=== PATIENT | female | born 1955 | race Caucasian/White ===

== ENCOUNTER 2018-10-03 06:45 | Day surgery (SDC) | payer OTHER, SELFPAY ==
[2018-09-30 10:18] VITALS: BMI 33.3
[2018-10-03] VITALS (16 sets, daily range): BP systolic 111–140; BP diastolic 42–84; PULSE 59–75; RESP 10–18; TEMP 36.2–37.1; O2SAT 93–100; BMI 33.3
--- NOTE | 2018-10-03 | PATH_ITS ---
[facility] Accession Number: [id number] . 01 Material submitted: . UTERUS, CERVIX, BILATERAL FALLOPIAN TUBES AND OVARIES . 02 Diagnosis: Uterus, Cervix, Bilateral Fallopian Tubes and Ovaries, Hysterectomy, Bilateral Salpingo-oophorectomy: 1. Bilateral benign Arleen tumors. 2. 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 3. Benign leiomyomas. 4. Disordered proliferative endometrium. 5. No evidence of atypia or malignancy. [facility]/10/07/2018 . 02 Comment: Arleen tumors are benign and with rare exceptions not associated with recurrent or progressive disease. Excision is adequate treatment. . 02 Electronically signed: . Brandi Calvin MD, Pathologist NPI- [id number] . 01 Gross description: . Received in formalin, labeled uterus, cervix, bilateral tubes + ovaries, is a uterus (38 grams, 2.6 cm AP, 6.7 cm SI, 3.2 cm ML) with attached ovaries (right-3.5 x 0.6 x 0.5 cm; left-2.2 x 1.5 x 0.8 cm) and fimbriated fallopian tubes (right: length-4.5 cm, diameter-0.5 cm; left: length-3.3 cm, diameter-0.5 cm). The cervix (2.0 cm AP, 2.8 cm ML) has a vaginal cuff (up to 1.4 cm in depth), transverse os and patent endocervical canal. The endometrium (average thickness-0.1 cm) is everett-pink smooth and flat. The myometrium (thickness-1.2 cm) is everett and unremarkable. The serosa is dark brown smooth and shiny. The ovaries have everett-yellow dull flat serosa and everett-white solid parenchyma with corpus albicans and multiple solid firm white whorled homogenous nodules (0.5 cm-0.7 cm) identified. The left ovary contains multiple cystic cavities (0.1 cm-0.6 cm) containing turbid gelatinous material. The fallopian tubes have everett-bentley dull serosa with multiple paratubal cysts (0.1 cm-1.5 cm) containing clear colorless fluid and turbid gelatinous material. The lumens are everett and unremarkable. Section code: (A1) anterior cervix; (A2) posterior cervix; (A3, A4) anterior endomyometrium; (A5, A6) posterior endomyometrium; (A7) right ovary, medical collections representative serial sections; (A8) left ovary, medical collections representative serial sections; (A9) right fallopian tube, medical collections representative serial sections; (A10) right fimbria, bivalved, entirely submitted; (A11) left fallopian tube, medical collections representative serial sections; (A12) left fimbria, bivalved, entirely submitted. Additional sections: (A13-A16) remaining anterior cervix; (A17, A18) additional endomyometrium. (:cmc80 [id number]) (:cmc10 [id number]) /[facility] . 02 Microscopic: . Immunohistochemical stains for p16 were performed on blocks A1, A15 and A16 in order to evaluate epithelial areas of interest and are negative for block reactivity. The control stain showed appropriate reactivity. . * This test was developed and its performance characteristics determined by [facility]. It has not been cleared or approved by the U.S. Food and Drug Administration. The FDA has determined that such clearance or approval is not necessary. This test is used for clinical purposes. It should not be regarded as investigational or for research. . 02 Pathologist provided ICD-10: D27.9, N83.9, D25.9 . 02 CPT . 778810, Q86692 Performed at: 01 [facility] [address], [place], [place] [id number] MD Rajesh Lewis MD Phone: [phone] Performed at: 02 [facility] [id number] [place], [place] [id number] MD Brandi Calvin MD Phone: [phone]
[2018-10-03] MEDS: LACTATED RINGERS 1,000 ML 100 ML IV ×4 (07:32→21:15)
--- NOTE | 2018-10-03 07:45 | PM.PREOP ---
Pre-operative Note Interval Note Pre-op Check: Yes History & Physical Reviewed by Physician Changes: No
[2018-10-03] MEDS: CEFAZOLIN 2 GM/100 ML FROZ.PIGGY IV (08:10)
--- NOTE | 2018-10-03 08:53 | SUR.OPER ---
Lithotomy on padded OR bed. Silo Pad Positioner under torso. Head on pillow, arms padded and tucked at sides. Legs secured in padded yellow fins stirrups.
[2018-10-03] MEDS: BUPIVACAINE 0.5% W/ EPI (PF) VIAL 60 ML INJ (09:23)
[2018-10-03] MEDS: ACETAMINOPHEN IV 1,000 MG/100 ML VIAL 400 MG IV (09:40)
[2018-10-03] MEDS: KETOROLAC 30 MG/ML VIAL IV ×2 (10:15→16:53)
[2018-10-03] MEDS: ONDANSETRON 4 MG/2 ML INJ IV (11:40)
--- NOTE | 2018-10-03 11:41 | SUR.PHASEI ---
c/o mild nausea, medicated per orders.
[2018-10-03] MEDS: DOCUSATE 250 MG CAPSULE PO (21:12)
[2018-10-03] MEDS: METOPROLOL IR 25 MG TABLET 75 MG PO (21:12)
[2018-10-03] MEDS: ATORVASTATIN 20 MG TABLET 40 MG PO (21:12)
[2018-10-04 00:52] VITALS: BP 110/57; PULSE 69; RESP 18; TEMP 37; O2SAT 95
[2018-10-04] MEDS: KETOROLAC 30 MG/ML VIAL IV ×2 (01:00→07:21)
[2018-10-04 03:17] VITALS: BP 125/54; PULSE 65; RESP 17; TEMP 36.6; O2SAT 97
[2018-10-04 05:38] LABS: Add Manual Diff / Slide Review NO; Basophils Percent Auto 0.2 % (0-2); Hematocrit 33.8 % (36-46); Hemoglobin 11.1 g/dL (12.0-16.0); Lymphocytes Percent Auto 6.2 % (25-40); Mean Corpuscular HGB Conc 32.8 % (30-36); Mean Corpuscular Hemoglobin 31.3 PG (26-34); Mean Corpuscular Volume 95.4 fL (80-100); Neutrophils Absolute Auto 13300 /uL (3000-5900); Neutrophils Percent Auto 89.6 % (50-75); Platelet Count 262 X10^3/uL (150-400); Red Blood Cell Count 3.55 X10^6/uL (4.0-5.2); Red Cell Distribution Width 12.9 % (11.6-14.8); White Blood Cell Count 14.8 X10^3/uL (4.5-11.0)
[2018-10-04] MEDS: LEVOTHYROXINE 75 MCG TABLET PO (06:19)
[2018-10-04 07:40] VITALS: BP 138/72; PULSE 57; RESP 18; TEMP 36.6; O2SAT 97
--- NOTE | 2018-10-04 08:07 | PM.GYNOP.1 ---
Operative Date/Time/Diagnoses Date of procedure: 10/03/18 Time of procedure: 10:30 Pre-op diagnosis: Uterine prolapse Cystocele Rectus Post-op diagnosis: same Procedure: Procedures Operation Date: 10/03/18 07:45 Actual Procedures Side Surgeon p Laparoscopic Assisted Vag Hysterectomy w/Bilat S&O Not Applicable Macy Macias MD Indications: Symptomatic uterine prolapse, cystocele, and rectocele Surgeon: Macy Macias Stitching Machine Operator: Eduard Huang Anesthesia Type: General Operative Notes Findings: 5 week size prolapsed uterus Third-degree cystocele Third-degree rectocele Normal tubes and ovaries Normal appendix Normal gallbladder and liver Closure Type: primary Specimen(s): left tube & ovary, right tube & ovary and uterus Applied: catheter Estimated blood loss (mL): 200 Blood products transfused: none Procedure in detail: The patient was taken to the operating room where she was placed in the dorsal supine position. After adequate general endotracheal anesthesia was achieved, she was placed in the dorsal lithotomy position, and prepped and draped in the usual sterile fashion. A time-out was performed. A bivalve speculum was placed into the vagina, and a single-tooth tenaculum was placed on the anterior lip of the cervix. The cervical os was sequentially dilated until the ZUMI uterine manipulator could pass easily into the endometrial cavity. The single-tooth tenaculum was removed from the anterior lip of the cervix, and the bivalve speculum was removed from the vagina. Attention was then turned to the abdomen where 6 mL of half percent Marcaine with epinephrine were injected in the umbilical fold. A 5 mm incision was made. The Verhees needle was placed into the peritoneal cavity, and its placement confirmed by aspiration and drop test. The abdominal cavity was insufflated with 4 L of CO2. The Verhees needle was removed, and a 5 mm trocar was placed without difficulty. Initial inspection of the pelvis revealed the findings noted above. 2 other incisions were made midway between the pubic symphysis and umbilicus 4 cm lateral to the midline. These were 5 mm incisions. Two 5 mm trochars were placed under direct visualization. The right tube and ovary were grasped with an atraumatic grasper. The infundibulopelvic ligament on the right side was cauterized and cut with plasma kinetic. The round ligament and broad ligament were cauterized and cut. This was continued to the level of the uterine arteries. This was repeated on the patient's left side. The instuments were removed from the abdomen. Attention was then turned to the vagina where the ZUMI uterine manipulator was removed from the uterus. The cervix was grasped with a 4 tooth tenaculum. 10 mL of quarter percent Marcaine with epinephrine were injected circumferentially around the cervix. The cervix was circumscribed. The bladder and rectum were dissected off the lower uterine segment and cervix with an open moistened Ray-Lorenzo. The peritoneum was entered sharply with the Metzenbaum scissors anteriorly and a Lashell placed. The peritoneum was entered posteriorly with the Metzenbaum scissors and the long weighted speculum was placed into the posterior cul-de-sac. The uterosacral cardinal ligament complexes were clamped, transected, and suture ligated with 0 Vicryl. These were attached to hemostat. The uterine arteries were clamped, transected, and suture ligated with 0 Vicryl. The uterus was handed off for specimen with the tubes and ovaries. The peritoneum was closed with a pursestring suture with 2-0 Vicryl. The vaginal cuff was closed with 0 Vicryl with a series of simple interrupted sutures. The tagged sutures were cut. 2 Allis clamps were placed at the apex of the cystocele. 6 mL of half percent Marcaine with epinephrine were injected and an incision was made with a #10 blade between the 2 Allis clamps. Wide Allis clamps were placed on the midline of the cystocele approximately 5. The mucosa was undermined using the Metzenbaum scissors and the mucosa incised in the midline moving the wide Allis clamps to the edges of the mucosa. The mucosa was dissected off the underlying fascia using an open moistened Ray-Lorenzo and a #10 blade. The fascia was reapproximated with 0 Vicryl with a series of horizontal mattress sutures. The excess vaginal mucosa was excised. The mucosa was closed using simple interrupted sutures with 2-0 Vicryl including the underlying fascia to close the space. The weighted speculum was removed from the vagina. Allis clamps were placed at the mucocutaneous junction at the introitus. 6 mL of half percent Marcaine with epinephrine were injected. An incision was made with a #10 blade between the 2 Allis clamps, and a triangular piece of skin and underlying subcutaneous tissue was removed. Allis clamps were placed in the midline of the rectocele. 10 mL of half percent Marcaine with epinephrine were injected submucosally. The mucosa was undermined using the Metzenbaum scissors and the mucosa incised in the midline, moving the wide Allis clamps to the mucosal edges. The underlying fascia was dissected off of th mucosa using an open moistened Ray-Lorenzo and a #10 blade. The fascia was reapproximated using 0 Vicryl with a series of horizontal mattress sutures. The excess vaginal mucosa was excised. The mucosa was closed using a series of simple interrupted sutures with 2-0 Vicryl including the underlying fascia to close the space. On the perineum 0 Vicryl was used to reapproximate the levator muscle. The subcutaneous layer was closed with 2-0 Vicryl. The skin was closed with 3-0 chromic in a subcuticular fashion. Hemostasis was achieved. A Betadine moistened vaginal pack was placed into the vagina. A rectal exam was done and there were no sutures palpable in the rectum. The urine was clear. Attention was turned back to the abdomen and the abdomen was insufflated with 3 L of CO2. The vaginal cuff was inspected and there was a small amount of bleeding from the right side including the peritoneum. This was cauterized with the PlasmaKinetic for hemostasis. The pelvis was copiously irrigated and there was no bleeding noted. Sponge, lap, and instrument counts were correct x-2. The patient tolerated the procedure well, was taken to PACU in stable condition. Post-operative Condition: stable Disposition: PACU Plan for aftercare: To acute care after recovery
--- NOTE | 2018-10-04 09:20 | PC.NURSE ---
Addendum entered by Anila Renteria R.N. 10/04/18 13:24: Patient voided 150cc, PVR 57cc, call placed to Dr Macias, waiting for return call. Original Note: Addendum entered by Anila Renteria R.N. 10/04/18 12:30: In and out cath for 200cc clear yellow urine as per Dr Kendall Shepard nurse. Original Note: Addendum entered by Anila Renteria R.N. 10/04/18 11:16: 1045 Patient voided 100cc, PVR 150cc, Call to Drea Argueta nurse at 1115 and given these urine amounts and PVR. Original Note: Addendum entered by Anila Renteria R.N. 10/04/18 10:06: Pt voided 150cc pink tinged urine, bladder scanned PVR 200cc, Dr Macisa notified. Ordered to have patient attempt to void again in 30min and check PVR. Original Note: Pt up ambulating in room, gait steady, rates abdominal pain 2/10, described as cramping.Denies need for pain meds. Serna out at 0610, no void yet. Pt had approx 75cc bloody drainage when attempting to void.
[2018-10-04] MEDS: ISOSORBIDE MONONITRATE ER 30 MG TABLET PO (09:28)
[2018-10-04] MEDS: DOCUSATE 250 MG CAPSULE PO (09:28)
[2018-10-04] MEDS: LISINOPRIL 10 MG TABLET PO (09:28)
== END 2018-10-04 14:57 | disposition home or self-care (01) ==
LOC: OR 06:49 → AC 12:04
PROVIDERS: PCP Family Medicine; Visit Provider Obstetrics & Gynecology
PROC: 0UT9FZZ Resection of Uterus, Via Natural or Artificial Opening With Percutaneous Endoscopic Assistance (ICD-10-PCS; CPT 58552; principal; 2018-10-03 07:45)
DX: N81.4 Uterovaginal prolapse, unspecified (principal); N81.6 Rectocele; N83.9 Noninflammatory disorder of ovary, fallopian tube and broad ligament, unspecified; D25.9 Leiomyoma of uterus, unspecified; D27.0 Benign neoplasm of right ovary; D27.1 Benign neoplasm of left ovary
CPT/HCPCS: 58552; 57260; 36415; 85025; J0131; J0330; J0690; J1100; J1885; J2250; J2405; J2704; J3010

== ENCOUNTER → 2018-10-20 11:52 | Outpatient (CLI) | payer OTHER, SELFPAY ==
[2018-10-03 13:06] VITALS: BMI 33.3
== END ==
PROVIDERS: PCP Family Medicine; Visit Provider Family Medicine
DX: R20.0 Anesthesia of skin (principal); R29.898 Other symptoms and signs involving the musculoskeletal system
CPT/HCPCS: 95885; 95886; 95909

== ENCOUNTER → 2018-10-24 15:26 | Outpatient (CLI) | payer OTHER, SELFPAY ==
[2018-10-03 13:06] VITALS: BMI 33.3
--- NOTE | 2018-10-24 15:27 | DI.US.S_ITS ---
PROCEDURE: US KATE LIMITED SINGLE LEVEL INDICATIONS: NUMBNESS IN FEET / LOWER EXTREMITIES TECHNIQUE: Ankle-brachial indices were obtained bilaterally and recorded. 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 Dictated by: Hair Bray M.D. on 10/24/2018 at 16:19 Approved by: Hair Bray M.D. on 10/24/2018 at 16:21
== END ==
PROVIDERS: PCP Family Medicine; Visit Provider Family Medicine
DX: R20.0 Anesthesia of skin (principal)
CPT/HCPCS: 93922

== ENCOUNTER → 2018-11-07 09:17 | Outpatient (CLI) | payer OTHER, SELFPAY ==
[2018-10-03 13:06] VITALS: BMI 33.3
[2018-11-07 10:15] LABS: Alanine Aminotransferase 26 IU/L (9-52); Albumin 4.5 g/dL (3.5-5.0); Albumin Globulin Ratio 1.2 (1.0-2.8); Alkaline Phosphatase 103 U/L (38-126); Aspartate Aminotransferase 25 IU/L (14-36); BUN Creatinine Ratio 25.6 (6-22); Bilirubin Total 0.6 mg/dL (0.2-1.3); Blood Urea Nitrogen 23 mg/dL (7-17); Calcium 9.5 mg/dL (8.4-10.2); Carbon Dioxide 25 mmol/L (22-32); Chloride 108 mmol/L (98-107); Estimated Glomerular Filt Rate > 60.0 mL/min (>60); Globulin 3.8 g/dL (1.7-4.1); Glucose 110 mg/dL (80-110); HEMOLYSIS 28 (0-50); Potassium 4.8 mmol/L (3.4-5.1); Sodium 142 mmol/L (137-145); Total Protein 8.3 g/dL (6.3-8.2)
[2018-11-07 10:42] LABS: Hemoglobin A1C% w Est Avg Glu 5.7 % (4.0-6.0)
[2018-11-07 11:14] LABS: Folate 17.5 ng/mL (2.76-20.0); Vitamin B12 386 pg/mL (239-931)
== END ==
PROVIDERS: PCP Family Medicine; Visit Provider Family Medicine
DX: G62.9 Polyneuropathy, unspecified (principal)
CPT/HCPCS: 36415; 80053; 82607; 82746; 83036

== ENCOUNTER → 2019-02-13 09:44 | Outpatient (CLI) | payer OTHER, SELFPAY ==
[2018-10-03 13:06] VITALS: BMI 33.3
--- NOTE | 2019-02-13 10:42 | DI.RAD.S_ITS ---
PROCEDURE: XR CHEST 2V INDICATIONS: short of breath TECHNIQUE: 2 views of the chest were acquired. COMPARISON: None. FINDINGS: Surgical changes and devices: None. Lungs and pleura: Ill-defined opacity in right infrahilar region is seen, suggestive of right normal small infiltrate/atelectasis. No pleural effusions or pneumothorax. Mediastinum: Mediastinal contours are normal. Heart size is normal. Bones and chest wall: No suspicious bony abnormalities. Soft tissues appear unremarkable. IMPRESSION: Finding is suspicious for a small right lower lobe infiltrate. Dictated by: Hair Bray M.D. on 02/13/2019 at 11:34 Approved by: Hair Bray M.D. on 02/13/2019 at 11:44
[2019-02-13 11:04] LABS: Cholesterol 140 mg/dL (140-199); HDL Cholesterol 59 mg/dL (40-60); LDL Cholesterol Calculated 66 mg/dL (<100); Triglycerides 73 mg/dL (35-150)
[2019-02-13 11:38] LABS: TSH w/ Reflex to FT4 0.18 uIU/mL (0.47-4.68)
[2019-02-13 12:07] LABS: Free T4, Direct Thyroxine 2.04 ng/dL (0.78-2.19)
== END ==
PROVIDERS: PCP Family Medicine; Visit Provider Family Medicine
DX: R53.82 Chronic fatigue, unspecified (principal); E78.5 Hyperlipidemia, unspecified
CPT/HCPCS: 36415; 71046; 80061; 84439; 84443

== ENCOUNTER → 2019-05-15 08:43 | Outpatient (CLI) | payer MEDICARE, OTHER, SELFPAY ==
[2018-10-03 13:06] VITALS: BMI 33.3
--- NOTE | 2019-05-15 08:52 | DI.RAD.S_ITS ---
PROCEDURE: XR CHEST 2V INDICATIONS: fu cough/pneumonia TECHNIQUE: 2 views of the chest were acquired. COMPARISON: [facility], CR, XR CHEST 2V, 02/13/2019, 10:45. FINDINGS: Surgical changes and devices: None. Lungs and pleura: Lungs are clear. No pleural effusions or pneumothorax. Mediastinum: Mediastinal contours are normal. Heart size is minimally prominent. Bones and chest wall: No suspicious bony abnormalities. Soft tissues appear unremarkable. IMPRESSION: No acute pulmonary process. Dictated by: Sandy Carmona M.D. on 05/15/2019 at 10:02 Approved by: Sandy Carmona M.D. on 05/15/2019 at 10:03
[2019-05-15 10:31] LABS: Thyroid Stimulating Hormone 2.23 uIU/mL (0.47-4.68)
== END ==
PROVIDERS: PCP Family Medicine; Visit Provider Family Medicine
DX: R05 Cough (principal); E03.9 Hypothyroidism, unspecified
CPT/HCPCS: 36415; 71046; 84443

== ENCOUNTER → 2019-06-28 16:26 | Outpatient (CLI) | payer MEDICARE, OTHER, SELFPAY ==
[2019-06-27 13:34] VITALS: BMI 33.3
--- NOTE | 2019-06-28 16:28 | DI.RAD.S_ITS ---
PROCEDURE: XR CHEST 2V INDICATIONS: Shortness of breath, Cough TECHNIQUE: 2 views of the chest were acquired. COMPARISON: [facility], CR, XR CHEST 2V, 05/15/2019, 9:04. FINDINGS: Surgical changes and devices: None. Lungs and pleura: Lungs are clear. No pleural effusions or pneumothorax. Mediastinum: Mediastinal contours are normal. Heart size is normal. Bones and chest wall: No suspicious bony abnormalities. Soft tissues appear unremarkable. IMPRESSION: No evidence acute pulmonary process. Dictated by: Wes Arellano M.D. on 06/28/2019 at 16:50 Approved by: Wes Arellano M.D. on 06/28/2019 at 16:50
== END ==
PROVIDERS: PCP Family Medicine; Visit Provider Nurse Practitioner
DX: R06.03 Acute respiratory distress (principal); R05 Cough
CPT/HCPCS: 71046

== ENCOUNTER → 2019-07-24 07:49 | Outpatient (CLI) | payer MEDICARE, OTHER, SELFPAY ==
[2018-10-03 13:06] VITALS: BMI 33.3
[2019-06-27 13:34] VITALS: BMI 33.3
--- NOTE | 2019-07-24 | DI.MG.S_ITS ---
BILATERAL DIGITAL SCREENING MAMMOGRAM 3D/2D WITH CAD: 07/24/2019 CLINICAL: Routine screening. Family history of breast cancer. Comparison is made to exams dated: 07/18/2018 mammogram and 05/19/2017 mammogram - [facility]. There are scattered fibroglandular elements in both breasts. Current study was also evaluated with a Computer Aided Detection (CAD) system. No significant masses, calcifications, or other findings are seen in either breast. There has been no significant interval change. IMPRESSION: NEGATIVE There is no mammographic evidence of malignancy. A 1 year screening mammogram is recommended. This exam was interpreted at Station ID: [id number]. NOTE: For mammograms, a report in lay terms will be sent to the patient. Approximately 15% of breast malignancies will not be visualized mammographically. In the management of a palpable breast mass, a negative mammogram must not discourage biopsy of a clinically suspicious lesion. Electronically Signed By: Casi lucio/keven:07/26/2019 22:33:02 letter sent: Normal Exam ACR BI-RADS Category 1: Negative [id number]
== END ==
PROVIDERS: PCP Family Medicine; Visit Provider Family Medicine
DX: Z12.31 Encounter for screening mammogram for malignant neoplasm of breast (principal); Z80.3 Family history of malignant neoplasm of breast
CPT/HCPCS: 77063; 77067

== ENCOUNTER → 2019-12-08 08:52 | Outpatient (CLI) | payer MEDICARE, OTHER, SELFPAY ==
[2019-06-27 13:34] VITALS: BMI 33.3
--- NOTE | 2019-12-15 16:27 | PM.PFT.1 ---
Pulmonary Function Test Referral & Results Date Patient Seen: 12/08/19 Requesting provider: Robert Felipe Results: The spirometry demonstrates an FVC of 2.25 L which is 71% of predicted. The FEV1 was measured at 1.52 L which is 63% of predicted. The FEV1/FVC ratio was 68 which is 87% of predicted. Following the administration of bronchodilator there was no significant change. Lung volumes show an SVC of 1.88 L which is 63% of predicted. The diffusing capacity was measured at 16.06 which is 66% of predicted. No hemoglobin value was provided, so no correction for potential anemia could be made, if appropriate. The maximum voluntary ventilation was reduced Interpretation: This study demonstrates moderate obstructive lung disease based on reduction FEV1 without evidence of significant benefit following bronchodilator There is also moderate restrictive lung disease based on reduction SVC There is also significant disease of the capillary alveolar level based on reduction in diffusing capacity
== END ==
PROVIDERS: PCP Family Medicine; Referring Provider Family Medicine; Visit Provider Family Medicine
DX: R06.02 Shortness of breath (principal); J98.8 Other specified respiratory disorders; Z87.891 Personal history of nicotine dependence
CPT/HCPCS: 94060; 94726; 94729

== ENCOUNTER 2020-06-02 18:12 | Emergency (ER) | payer MEDICARE, OTHER, SELFPAY ==
[2019-06-27 13:34] VITALS: BMI 33.3
[2020-06-02] VITALS (22 sets, daily range): BP systolic 127–193; BP diastolic 58–85; PULSE 52–61; RESP 13–27; TEMP 36.5; O2SAT 96–99; BMI 36.1
--- NOTE | 2020-06-02 18:21 | DI.RAD.S_ITS ---
PROCEDURE: XR CHEST 1V INDICATIONS: chest pain TECHNIQUE: One view of the chest was acquired. COMPARISON: [facility], CR, XR CHEST 2V, 06/28/2019, 16:30. [facility], CR, XR CHEST 2V, 05/15/2019, 9:04. FINDINGS: Surgical changes and devices: None. Lungs and pleura: Lungs are mildly abnormal, with a mild interstitial prominence in the setting of reduced inspiratory volume in this is best seen at the right lower lobe, chronically present. No pleural effusions or pneumothorax. Mediastinum: Mediastinal contours appear normal. Heart size is normal. Bones and chest wall: No suspicious bony lesions. Overlying soft tissues appear unremarkable. IMPRESSION: A definite source of chest pain is not seen. Mild interstitial prominence, best seen at the medial right lung base but this has been previously present over multiple prior studies. No acute disease. Dictated by: Be Mcbride M.D. on 06/02/2020 at 19:27 Approved by: Be Mcbride M.D. on 06/02/2020 at 19:28
--- NOTE | 2020-06-02 18:26 | ED_ITS ---
HPI - Chest Pain General Chief Complaint: Chest Pain Stated Complaint: Chest pain Time Seen by Provider: 06/02/20 18:15 Source: patient and family Mode of arrival: Ambulatory Limitations: no limitations History of Present Illness HPI narrative: 65-year-old female former smoker with known coronary artery disease and 2 prior MIs presents with a chief complaint of chest pressure increasing over the course of the day. She states she was initially a woken from sleep last night sometime and then upon waking seemed to feel okay but as the day wore on she developed increasing and more intense episodes of pressure. She states that at most it was about a 4/10 and on arrival was a 3/10. She denies associated symptoms such as dizziness, weakness or lightheadedness. She states she historically works out multiple times per week and has noted over the past week or so that she has had increased fatigue and dyspnea with exertion and maybe even a few slight lips of chest pressure. She denies nausea, vomiting or unexplained diaphoresis. She denies any recent injuries or travel. She denies runny nose, sore throat, cough, fever or exposure to persons known to have Braxton it. She took no PRN medications prior to arrival MD complaint: chest pain Onset (ago): hour(s) Duration: progressively worsening Onset: during rest Pain location: substernal Severity: moderate Severity scale (1-10): 4 Quality: tightness, heaviness and similar to prior SD Pain radiation: none Relieving factors: rest Exacerbating factors: exertion Associated symptoms: dyspnea Treatments prior to arrival chest pain: none Related Data On Oral Contraceptives: No Home Medications Medication Instructions Recorded Confirmed flaxseed oil 1,000 mg capsule 1,000 mg PO BID 04/04/18 12/26/19 isosorbide mononitrate 30 mg 30 mg PO DAILY 05/11/18 12/26/19 tablet,extended release 24 hr Previous Rx's Medication Instructions Recorded aspirin 81 mg PO QDAY #30 tab 09/03/17 metoprolol tartrate 75 mg PO BID #60 tab 10/11/18 atorvastatin [Lipitor] 40 mg PO HS #90 tab 01/09/19 fluticasone propionate 230 2 puff INHALATION DAILY #12 gram 12/26/19 mcg-salmeterol 21 mcg/actuation HFA inhaler nitroglycerin 0.3 mg sublingual 0.3 mg SL Q5-15M PRN #14 tab 12/26/19 tablet losartan 50 mg tablet 50 mg PO DAILY #90 tab 04/08/20 levothyroxine 50 mcg tablet See Rx Instructions .ROUTE 05/06/20 .COMPLEX #90 tablet DISABLED PARKING PERMIT #1 each 05/10/20 Allergies Allergy/AdvReac Type Severity Reaction Status Date / Time meperidine [MEPERIDINE] Allergy Severe ANAPHYLAXIS Verified 02/12/20 13:46 acetaminophen [From Percocet] AdvReac Intermediate Vomiting Verified 02/12/20 13:46 codeine [CODEINE] AdvReac Intermediate EMESIS,H.A. Verified 02/12/20 13:46 hydrocodone [HYDROCODONE] AdvReac Intermediate EMESIS,H.A. Verified 02/12/20 13:46 oxycodone [From Percocet] AdvReac Intermediate Vomiting Verified 02/12/20 13:46 diphenhydramine AdvReac Mild INCR HR Verified 02/12/20 13:46 antihistamine Allergy Severe Severe BP Uncoded 02/12/20 13:46 increase, full body hives, trip to ER Review of Systems Constitutional Constitutional: Denies chills, Denies fatigue, Denies fever(s), Denies frequent falls, Denies lethargy and Denies weakness Eyes Eyes: Denies change in vision, Denies eye discharge, Denies irritation and Denies loss of vision ENT Ears, Nose, Mouth, and Throat: Denies change in voice, Denies dizziness, Denies neck pain, Denies sore throat and Denies throat swelling Cardiovascular Cardiovascular: Reports chest pain, Denies irregular heart rhythm, Denies lightheadedness, Denies palpitations, Denies dyspnea, Reports dyspnea on exertion and Denies orthopnea Respiratory Respiratory: Denies cough, Denies dyspnea, Reports dyspnea on exertion and Denies wheezing Gastrointestinal Gastrointestinal: Denies abdominal pain, Denies change in bowel habits, Denies diarrhea, Denies nausea and Denies vomiting Musculoskeletal Musculoskeletal: Denies neck pain and Denies numbness Integumentary/Breasts Skin/Breast: Denies pruritus, Denies erythema, Denies rash and Denies wounds Neurologic Neurologic: Denies behavioral changes, Denies confusion, Denies dizziness, García es frequent falls, Denies loss of vision, Denies numbness and Denies weakness Psychiatric Psychiatric: Denies anxiety, Denies behavioral changes, Denies confusion, Denies depression, Denies homicidal ideation and Denies suicidal ideation Endocrine Endocrine: Denies fatigue, Denies flushing and Denies palpitations Hematologic/Lymphatic Hematologic/Lymphatic: Denies easy bruising Allergic/Immunologic Allergic/Immunologic: Denies urticaria, Denies throat swelling and Denies wheezing Patient History Medical History Acquired hypothyroidism (Chronic 11/19/16) Ankle pain (Chronic) Anxiety and depression (Chronic) Anxiety disorder (Chronic 05/01/15) Coronary artery disease involving [place] coronary artery of [place] heart without angina pectoris (Chronic) Cough (Inactive) Dysthymia (Inactive) Essential hypertension (Chronic) Foot pain (Chronic) Heterozygous factor V Leiden mutation (Chronic 11/03/17) Hyperlipidemia (Chronic) Low grade fever (Inactive) Migraines (Chronic) Myocardial infarction (Acute 08/28/17) Shortness of breath (Inactive) Thrombocytopenia (Acute) Surgical History S/P BSO (bilateral salpingo-oophorectomy) (Resolved 10/03/18) S/P laparoscopic assisted vaginal hysterectomy (LAVH) (Resolved ~10/03/18) Social History marital status: household members: spouse Smoking Status: Former smoker alcohol intake: current substance use type: does not use Smoking Status: Former smoker alcohol intake frequency: holidays/special occasions only Substance Use Type: does not use Exam Narrative Exam Narrative: GENERAL: [65] year old patient appears stated age. Well- nourished, well-developed patient, in mild distress. HEAD: Atraumatic. Normocephalic. EYES: Pupils equal round and reactive. Extraocular motions intact. No scleral icterus. No injection or drainage. ENT: Nose without bleeding, purulent drainage. Throat without erythema, tonsillar hypertrophy or exudate. Airway patent. NECK: Trachea midline. Non tender CARDIOVASCULAR: Regular rate and rhythm without murmurs, gallops, or rubs. RESPIRATORY: Clear to auscultation. Breath sounds equal bilaterally. No wheezes, rales, or rhonchi. GASTROINTESTINAL: Abdomen soft, non-tender, nondistended. EXTREMITIES: No edema or joint tenderness. BACK: Nontender without deformity or crepitance. No flank tenderness. NEURO: AOx3. SKIN: No rash or erythema of visible areas Initial Vital Signs Initial Vital Signs: Vital Signs Temperature 97.7 F 06/02/20 18:21 Pulse Rate 60 06/02/20 18:21 Respiratory Rate 18 06/02/20 18:21 Blood Pressure 193/77 H 06/02/20 18:21 Pulse Oximetry 99 06/02/20 18:21 Course Orders Ordered: Discontinued Medications Aspirin (Aspirin Chew) 324 mg PO NOW ONE Stop: 06/02/20 18:27 Last Admin: 06/02/20 18:36 Dose: 324 mg Documented by: JD Heparin Sodium (Porcine) (Heparin) 5,000 unit IV NOW ONE Stop: 06/02/20 19:42 Last Admin: 06/02/20 20:27 Dose: 5,000 unit Documented by: MICHAEL Sodium Chloride (Normal Saline 0.9%) 1,000 mls @ 150 mls/hr IV CONT RAMSES Last Admin: 06/02/20 18:36 Dose: 150 mls/hr Documented by: JD Heparin Sodium/Dextrose (Heparin Drip) 25,000 unit in 500 mls @ 20 mls/hr IV CONT RAMSES; Protocol Last Admin: 06/02/20 20:28 Dose: 1,000 units/hr, 20 mls/hr Documented by: MICHAEL Metoprolol Tartrate (Lopressor) 5 mg IV NOW ONE Stop: 06/02/20 18:27 Last Admin: 06/02/20 18:40 Dose: 5 mg Documented by: JD Nitroglycerin (Nitrostat) 0.4 mg SL [id number] PRN PRN Reason: Chest Pain Last Admin: 06/02/20 21:42 Dose: 0.4 mg Documented by: Admin: 06/02/20 18:48 Dose: 0.4 mg Documented by: Admin: 06/02/20 18:37 Dose: 0.4 mg Documented by: JD Consultations Consultation #1: call to Dr. Trujillo who requests patient be sent to [facility] given her history and concerning story, requests admission to hospitalist Consultation #2: call to Dr. Diamond ([facility] Hospitalist) happy to accept transfer Time: 20:29 Vital Signs Vital signs: Vital Signs - 8 hr 06/02/20 18:21 06/02/20 18:37 06/02/20 18:48 Temperature 97.7 F Pulse Rate 60 57 L 57 L Respiratory Rate 18 Blood Pressure 193/77 H 166/77 H 137/65 Pulse Oximetry 99 06/02/20 18:52 06/02/20 18:55 06/02/20 19:00 Temperature Pulse Rate 56 L 54 L 55 L Respiratory Rate 16 23 Blood Pressure 127/61 133/63 Pulse Oximetry 97 96 97 06/02/20 19:05 06/02/20 19:17 06/02/20 19:21 Temperature Pulse Rate 53 L 52 L 52 L Respiratory Rate 17 14 21 Blood Pressure 141/61 H 135/59 L 155/64 H Pulse Oximetry 98 99 98 06/02/20 19:26 06/02/20 19:30 Temperature Pulse Rate 52 L 53 L Respiratory Rate 19 25 H Blood Pressure 159/65 H Pulse Oximetry 99 99 MDM - Chest Pain Lab Data Result diagrams: 06/02/20 18:35 06/02/20 18:35 Labs: Lab Results 06/02/20 06/02/20 06/02/20 Range/Units 18:35 18:35 18:35 WBC 8.3 (4.5-11.0) X10^3/uL RBC 3.78 L (4.0-5.2) X10^6/uL Hgb 12.0 (12.0-16.0) g/dL Hct 35.7 L (36-46) % MCV 94.4 (80-100) fL MCH 31.8 (26-34) PG MCHC 33.7 (30-36) % RDW 12.7 (11.6-14.8) % Plt Count 306 (150-400) X10^3/uL Neut % (Auto) 55.8 (50-75) % Lymph % (Auto) 34.5 (25-40) % [place] % (Auto) 6.9 (3-14) % Eos % (Auto) 2.0 (2-4) % Baso % (Auto) 0.8 (0-2) % Neut # (Auto) 4600 (6868-5824) /uL Lymph # (Auto) 2800 (3803-7835) /uL [place] # (Auto) 600 (0-900) /uL Eos # (Auto) 200 (0-450) /uL Baso # (Auto) 100 (0-100) /uL PT 10.8 (10.1-12.7) SECONDS INR 0.9 (0.9-1.3) APTT 34 (26.4-36.2) SECONDS Sodium 139 (137-145) mmol/L Potassium 4.5 (3.4-5.1) mmol/L Chloride 108 H (98-107) mmol/L Carbon Dioxide 26 (22-32) mmol/L BUN 23 H (7-17) mg/dL Creatinine 1.00 (0.52-1.04) mg/dL Estimated GFR 55.5 L (>60) mL/min BUN/Creatinine Ratio 23.0 H (6-22) Glucose 107 (80-110) mg/dL Calcium 9.6 (8.4-10.2) mg/dL Total Bilirubin 0.7 (0.2-1.3) mg/dL AST 27 (14-36) IU/L ALT 27 (<35) IU/L Alkaline Phosphatase 122 (38-126) U/L Total Creatine Kinase 45 (30-135) U/L CK-MB (CK-2) TNP CK-MB (CK-2) Rel Index TNP Troponin I < 0.012 (0.01-0.034) ng/mL Total Protein 8.1 (6.3-8.2) g/dL Albumin 4.7 (3.5-5.0) g/dL Globulin 3.4 (1.7-4.1) g/dL Albumin/Globulin Ratio 1.4 (1.0-2.8) Lipase 97 (23-300) U/L Critical Care Time Critical Care Time Critical Care Time: Yes Total Critical Care Time: 30 Attestation: The high probability of a clinically significant, sudden or life threatening deterioration of the [CV] system(s) required my full and direct attention, intervention and personal management. The aggregate critical care time was [30] minutes. This time is in addition to time spent performing reported procedures but includes the following: [x] Data Review and interpretation [x] Patient assessment and monitoring of vital signs [x] Documentation [x] Medication orders and management Discharge Plan Departure Patient Disposition: [facility] Clinical Impression: Chest pain Discharge Date/Time: 06/02/20 21:51 Prescriptions: No Action nitroglycerin 0.3 mg tablet, sublingual 0.3 mg SL Q5-15M PRN (Reason: Chest Pain) Qty: 14 RF: 1 Advair HFA 230-21 mcg/actuation HFA aerosol inhaler 2 puff INHALATION DAILY Qty: 12 RF: 3 aspirin 81 MG tablet,delayed release (DR/EC) 81 mg PO QDAY Qty: 30 RF: 0 metoprolol tartrate 25 mg tablet 75 mg PO BID Qty: 60 RF: 12 atorvastatin [Lipitor] 40 mg tablet 40 mg PO HS Qty: 90 RF: 3 losartan 50 mg tablet 50 mg PO DAILY Qty: 90 RF: 3 levothyroxine 50 mcg tablet See Rx Instructions .ROUTE .COMPLEX Qty: 90 RF: 2 (DME) DISABLED PARKING PERMIT See Rx Instructions .ROUTE .MEDSUPPLY Qty: 1 RF: 0 flaxseed oil 1,000 mg capsule 1,000 mg PO BID RF: 0 isosorbide mononitrate 30 mg tablet extended release 24 hr 30 mg PO DAILY RF: 0 Referrals: Robert Felipe MD [Primary Care Provider] -
[2020-06-02] MEDS: ASPIRIN 81 MG CHEW TAB 324 MG PO (18:36)
[2020-06-02] MEDS: SODIUM CHLORIDE 0.9% 1,000 ML 150 ML IV (18:36)
[2020-06-02] MEDS: NITROGLYCERIN 0.4 MG SL TAB SL ×3 (18:37→21:42)
[2020-06-02] MEDS: METOPROLOL TARTRATE 5 MG/5 ML INJ IV (18:40)
[2020-06-02 18:45] LABS: Add Manual Diff / Slide Review NO; Basophils Absolute Auto 100 /uL (0-100); Basophils Percent Auto 0.8 % (0-2); Eosinophils Absolute Auto 200 /uL (0-450); Hematocrit 35.7 % (36-46); Lymphocytes Absolute Auto 2800 /uL (1100-4500); Lymphocytes Percent Auto 34.5 % (25-40); Mean Corpuscular HGB Conc 33.7 % (30-36); Mean Corpuscular Hemoglobin 31.8 PG (26-34); Mean Corpuscular Volume 94.4 fL (80-100); Monocytes Absolute Auto 600 /uL (0-900); Monocytes Percent Auto 6.9 % (3-14); Neutrophils Absolute Auto 4600 /uL (1500-7000); Neutrophils Percent Auto 55.8 % (50-75); Platelet Count 306 X10^3/uL (150-400); Red Blood Cell Count 3.78 X10^6/uL (4.0-5.2); Red Cell Distribution Width 12.7 % (11.6-14.8); White Blood Cell Count 8.3 X10^3/uL (4.5-11.0)
[2020-06-02 18:51] LABS: INR 0.9 (0.9-1.3); Prothrombin Time 10.8 SECONDS (10.1-12.7)
[2020-06-02 18:53] LABS: PTT Partial Thromboplastin Tim 34 SECONDS (26.4-36.2)
[2020-06-02 18:54] LABS: Alanine Aminotransferase 27 IU/L (<35); Albumin 4.7 g/dL (3.5-5.0); Albumin Globulin Ratio 1.4 (1.0-2.8); Alkaline Phosphatase 122 U/L (38-126); Aspartate Aminotransferase 27 IU/L (14-36); Bilirubin Total 0.7 mg/dL (0.2-1.3); Blood Urea Nitrogen 23 mg/dL (7-17); Calcium 9.6 mg/dL (8.4-10.2); Carbon Dioxide 26 mmol/L (22-32); Chloride 108 mmol/L (98-107); Creatine Kinase 45 U/L (30-135); Estimated Glomerular Filt Rate 55.5 mL/min (>60); Globulin 3.4 g/dL (1.7-4.1); Glucose 107 mg/dL (80-110); HEMOLYSIS < 15 (0-50); Lipase 97 U/L (23-300); Potassium 4.5 mmol/L (3.4-5.1); Sodium 139 mmol/L (137-145); Total Protein 8.1 g/dL (6.3-8.2)
[2020-06-02 19:05] LABS: Troponin I < 0.012 ng/mL (0.01-0.034)
[2020-06-02] MEDS: HEPARIN 5,000 UNIT/ML VIAL 5000 UNIT IV (20:27)
[2020-06-02] MEDS: HEPARIN DRIP 25,000 UNIT/500 ML IV.SOLN 20 UNIT IV (20:28)
--- NOTE | 2020-06-02 21:27 | PC.NURSE ---
[facility] here for pt. Report given to BRUCE Escobedo
--- NOTE | 2020-06-02 21:41 | PC.NURSE ---
Pt started to have 4/10 chest discomfort as she was being transferred to the EMS stretcher. MD ordered 1 additional nitro
--- NOTE | 2020-07-12 08:24 | PC.NURSE ---
Per Fifi BARRERA, Pt had heaprin infusing upon transfer at 2151 on 06/02/2020
== END 2020-06-02 21:51 | disposition short-term general hospital (02) ==
PROVIDERS: Emergency Provider Emergency Medicine; PCP Family Medicine
DX: R07.9 Chest pain, unspecified (principal); R06.00 Dyspnea, unspecified; R53.83 Other fatigue; I25.10 Atherosclerotic heart disease of native coronary artery without angina pectoris
CPT/HCPCS: 36415; 71045; 80053; 82550; 83690; 84484; 85025; 85610; 85730; 93005; 96365; 96375; 99285; 99291; J1644

== ENCOUNTER → 2020-12-02 11:25 | Outpatient (CLI) | payer MEDICARE, OTHER, SELFPAY ==
[2019-06-27 13:34] VITALS: BMI 33.3
--- NOTE | 2020-12-02 11:26 | DI.CT.S_ITS ---
PROCEDURE: CT CHEST WO CON INDICATIONS: pulmonary nodule and opacities at lung base TECHNIQUE: Noncontrast 5 mm thick sections acquired from the pulmonary apices to the posterior costophrenic angles. 1 mm lung window, 5 mm thick coronal and sagittal and 7 mm axial MIP reformats were then acquired. For radiation dose reduction, the following was used: automated exposure control, adjustment of mA and/or kV according to patient size. COMPARISON: [facility], CR, XR CHEST 1 VIEW, 11/27/2020, 2:36. FINDINGS: Image quality: Excellent. Lungs and pleura: 1.2 cm subsolid pulmonary nodule, anterior segment of right upper lobe, image 122/4. Suspicious for adenocarcinoma in situ. There also vague areas of ill-defined ground-glass opacities in the periphery of the right upper lobe. Subsolid pulmonary nodule, left upper lobe, 1.0 cm, image 91/4. Suspicious for adenocarcinoma in situ. No acute air space opacities. No pleural effusions or pneumothorax. Central and peripheral airways are patent and normal in caliber. Mediastinum: Heart size is normal. No pericardial effusion. Moderately advanced coronary artery calcifications. No mediastinal adenopathy by size criteria. Thoracic aorta and central pulmonary arteries are normal in size. Esophagus is normal in caliber. No hiatal hernia. Bones and chest wall: No suspicious bony lesions. No vertebral body compression fractures. No axillary or supraclavicular adenopathy by size criteria. Thyroid gland is mostly above the imaged area. Abdomen: Visualized upper abdominal solid organs and bowel loops appear normal in the absence of contrast. IMPRESSION: 1. There are bilateral upper lobe subsolid pulmonary nodules, measuring 1.2 cm on the right and 1.0 cm on the left. Both of these are suspicious for adenocarcinoma in situ. 2. There is also a vague, ill-defined ground-glass opacity in the periphery of the right upper lobe. 3. Moderately advanced coronary artery calcifications. Recommend PET-CT for further evaluation of the bilateral subsolid pulmonary nodules. Dictated by: Wes Arellano M.D. on 12/02/2020 at 12:23 Approved by: Wes Arellano M.D. on 12/02/2020 at 12:32
== END ==
PROVIDERS: PCP Family Medicine; Referring Provider Family Medicine; Visit Provider Family Medicine
DX: R91.8 Other nonspecific abnormal finding of lung field (principal); R06.02 Shortness of breath; I25.10 Atherosclerotic heart disease of native coronary artery without angina pectoris
CPT/HCPCS: 71250

== ENCOUNTER → 2021-01-22 12:56 | Outpatient (CLI) | payer MEDICARE, OTHER, SELFPAY ==
[2019-06-27 13:34] VITALS: BMI 33.3
--- NOTE | 2021-01-22 13:01 | DIET.PN ---
Dietary Progress Note Assessment: 65y F attending nutrition consult for dietary reccs for managing her preDM, HLD, HTN, mild emphysema, and obesity. Pt desires a food plan to follow. 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 Pt has lost 7# recently because of tooth issues, she has missing teeth R upper and L molars so needs softer texture until teeth are fixed near the end of 2020. Pt drinks one pepsi per day- uses it to sooth anxiety secondary to having 10 kids. Found success being hypnotized to stop smoking many years ago. HT: 64 WT: 203# BMI: 34.8 Usual Day: wakes 6am drinks warm water c thyroid meds- tends to be a good water drinker showers, makes kids lunches (sandwich, cookies, crackers, chips) Breakfast: scrambled egg and activia yogurt Lunch (11am): pb&j on white bread (has wheat bread at home), minestrone and potato soups, tuna sandwiches, hamburger no bun 2-3pm 12oz pepsi Dinner (4-5pm): chicken or pork in a crock pot, spaghetti c salad, fish and salad always a vegetable (prefers canned) likes fish, casseroles grabs bottle water at 7pm instead of ice cream these days likes brazilian, wolof food, salty, spicy, garlic foods, okay with fresh veggies needs softer foods Prior to covid, 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 Pt reports having good self-control, doesn't have to eat cookies she makes, though often eating while cooking. Labs: A1c 5.7 preDM, lipids and BP managed via medication Nutrition Diagnosis: obesity r/t undesirable food choices and physical inactivity aeb pt reports not knowing how to eat healthy, pt eats the way she has since a child, BMI 34.8, A1c 5.7, pt on medications to manage blood lipids and BP c hx of heart attack. Interventions: 1. Introduced pt to hunger scale. Encouraged pt to moderate her portion sizes and meal timing by eating when a 3 and stopping when a 8. Pt will start to analyze if she eats at a 5 to investigate why and try to swap out a non-food activity. 2. Introduced pt to balanced plate. Using diagram and food models, built several non-balanced meals and several balanced meals to help pt learn what her plates should look like. 3. Encouraged pt to use salad plates at dinner to reduce meal size. 4. Provided pt c handout for healthy snack ideas. Pt will use this sheet to shop this afternoon. 5. Sending pt meal plan via email. Plan will have carb-controlled, heart healthy B/L/D options.
== END ==
PROVIDERS: PCP Family Medicine; Referring Provider Family Medicine; Visit Provider Family Medicine
DX: R73.03 Prediabetes (principal); E78.5 Hyperlipidemia, unspecified; I10 Essential (primary) hypertension; J43.9 Emphysema, unspecified; E66.9 Obesity, unspecified; Z68.34 Body mass index [BMI] 34.0-34.9, adult; Z71.3 Dietary counseling and surveillance
CPT/HCPCS: 97802

== ENCOUNTER → 2021-06-30 09:51 | Outpatient (CLI) | payer MEDICARE, OTHER, SELFPAY ==
[2019-06-27 13:34] VITALS: BMI 33.3
--- NOTE | 2021-06-30 09:52 | DI.CT.S_ITS ---
PROCEDURE: CT CHEST WO CON INDICATIONS: 6 mo FU per radiology lung nodules TECHNIQUE: Noncontrast 2.0-2.5 mm thick sections acquired from the pulmonary apices to the posterior costophrenic angles. 7 mm thick axial MIP and 5 mm coronal and sagittal reformats were then acquired. A low radiation dose technique was utilized. COMPARISON: [facility], [place], [place] PET CT FUSION SKULL 2 THIGH, 12/11/2020, 8:20. [facility], CT, CT CHEST WO CON, 12/02/2020, 11:30. FINDINGS: Image quality: Diagnostic, given the low radiation dose technique. Lungs and pleura: A subsolid pulmonary nodule in the right upper lobe on the previous study, which previously measured approximately 1.2 cm on prior image 122/4 has resolved, consistent with resolution of infection or inflammation. A subsolid pulmonary nodule in the left upper lobe on previous image 91/4, which previously measured 1.0 cm, has also resolved. On current image 81/3 is an ill-defined subsolid nodular 5 mm density in the left upper lobe, which was previously not seen. It is most likely infectious or inflammatory in etiology, as well. Mediastinum: Heart size is normal. No pericardial effusion. Moderately advanced coronary artery calcifications are again noted. No mediastinal adenopathy by size criteria. Thoracic aorta and central pulmonary arteries are normal in size. Esophagus is normal in caliber. No hiatal hernia. Bones and chest wall: No suspicious bony lesions. No vertebral body compression fractures. No axillary or supraclavicular adenopathy by size criteria. Thyroid gland is grossly unremarkable as visualized . Abdomen: Visualized upper abdomen solid organs and bowel loops appear normal in the absence of contrast. IMPRESSION: 1. Bilateral previous subsolid pulmonary nodules, which each previously measured 1 cm or greater, have both resolved. These are consistent with resolution of inflammation or infection. 2. Interval development of a new ill-defined 5 mm subsolid left upper lobe pulmonary nodule. It also is most likely inflammatory or infectious in etiology. Recommend 12 month follow-up CT for this. 3. Moderately advanced coronary artery calcifications. Fleischner Society criteria for SOLID lung nodule followup. Nodule size (mm)Low-risk patientHigh-risk patient<6 (single or multiple)No routine followup.Optional CT at 12 months. 6-8 (single or multiple)CT at 6-12 months, then optional CT at 18-24 mo.CT at 6-12 months, then CT at 18-24 months. >8 (single)CT at 3 months, PET-CT, or biopsy. Same as for low-risk pts. >8 (multiple)CT at 3-6 months, then optional CT at 18-24 mo.CT at 3-6 months, then CT at 18-24 months. Fleischner Society criteria for SUB-SOLID lung nodule followup. Solitary pure ground-glass nodules<6 mm (ground glass or part solid)No followup needed. 6 mm or larger (ground glass)CT at 6-12 months to confirm persistence, then CT every 2 years until 5 years.6 mm or larger (part solid)CT at 3-6 months to confirm persistence, then annual CT until 5 years if unchanged and solid component remains <6 mm. Multiple sub-solid nodules<6 mmCT at 3-6 months, then CT consider at 2 & 4 years for high risk patients. [address] at 3-6 months. Subsequent management based on most suspicious lesions. Recommendations do not apply to lung cancer screening, patients with immunosuppression, or patients with known primary cancer. Dictated by: Wes Arellano M.D. on 06/30/2021 at 11:15 Approved by: Wes Arellano M.D. on 06/30/2021 at 11:25
== END ==
PROVIDERS: PCP Family Medicine; Referring Provider Family Medicine; Visit Provider Family Medicine
DX: R91.8 Other nonspecific abnormal finding of lung field (principal); I25.10 Atherosclerotic heart disease of native coronary artery without angina pectoris
CPT/HCPCS: 71250

== ENCOUNTER → 2021-08-18 10:45 | Outpatient (CLI) | payer MEDICARE, OTHER, SELFPAY ==
[2019-06-27 13:34] VITALS: BMI 33.3
--- NOTE | 2021-08-18 | DI.MG.S_ITS ---
BILATERAL DIGITAL SCREENING MAMMOGRAM 3D/2D WITH CAD: 08/18/2021 CLINICAL: Routine screening. Family history of breast cancer. Comparison is made to exams dated: 07/24/2019 mammogram - [facility], 07/18/2018 mammogram, and 05/19/2017 mammogram - [facility]. There are scattered fibroglandular elements in both breasts. Current study was also evaluated with a Computer Aided Detection (CAD) system. No significant masses, calcifications, or other findings are seen in either breast. There has been no significant interval change. IMPRESSION: NEGATIVE There is no mammographic evidence of malignancy. A 1 year screening mammogram is recommended. This exam was interpreted at Station ID: [id number]. NOTE: For mammograms, a report in lay terms will be sent to the patient. Approximately 15% of breast malignancies will not be visualized mammographically. In the management of a palpable breast mass, a negative mammogram must not discourage biopsy of a clinically suspicious lesion. Electronically Signed By: Robert Funk M.D., jr/keven:08/18/2021 12:13:43 letter sent: Normal Exam ACR BI-RADS Category 1: Negative [id number]
== END ==
PROVIDERS: PCP Family Medicine; Referring Provider Family Medicine; Visit Provider Family Medicine
DX: Z12.31 Encounter for screening mammogram for malignant neoplasm of breast (principal); Z80.3 Family history of malignant neoplasm of breast
CPT/HCPCS: 77063; 77067

== ENCOUNTER → 2021-09-03 12:54 | Outpatient (CLI) | payer MEDICARE, OTHER, SELFPAY ==
[2019-06-27 13:34] VITALS: BMI 33.3
--- NOTE | 2021-09-03 13:05 | DI.RAD.S_ITS ---
PROCEDURE: XR CHEST 2V INDICATIONS: Recent (+) Covid 19, vaccinated Dyspnea on exertion, cough TECHNIQUE: 2 views of the chest were acquired. COMPARISON: [facility], CR, XR CHEST 1V, 06/02/2020, 18:55. FINDINGS: Surgical changes and devices: None. Lungs and pleura: Significant interval progression. Patchy bilateral interstitial infiltrates and more confluent airspace consolidation. No pleural effusions or pneumothorax. Mediastinum: Mediastinal contours are normal. Heart size is normal. Bones and chest wall: No suspicious bony abnormalities. Soft tissues appear unremarkable. IMPRESSION: Covid pneumonia. Dictated by: Wes Arellano M.D. on 09/03/2021 at 13:54 Approved by: Wes Arellano M.D. on 09/03/2021 at 13:54
[2021-09-03 13:43] LABS: Add Manual Diff / Slide Review NO; Basophils Absolute Auto 100 /uL (0-100); Basophils Percent Auto 0.9 % (0-2); Eosinophils Absolute Auto 100 /uL (0-450); Eosinophils Percent Auto 1.8 % (2-4); Hematocrit 32.7 % (36-46); Lymphocytes Absolute Auto 1800 /uL (1100-4500); Lymphocytes Percent Auto 22.2 % (25-40); Mean Corpuscular HGB Conc 33.7 % (30-36); Mean Corpuscular Hemoglobin 31.6 PG (26-34); Mean Corpuscular Volume 93.8 fL (80-100); Monocytes Absolute Auto 600 /uL (0-900); Monocytes Percent Auto 7.8 % (3-14); Neutrophils Absolute Auto 5300 /uL (1500-7000); Neutrophils Percent Auto 67.3 % (50-75); Platelet Count 620 X10^3/uL (150-400); Red Blood Cell Count 3.48 X10^6/uL (4.0-5.2); White Blood Cell Count 7.9 X10^3/uL (4.5-11.0)
[2021-09-03 13:57] LABS: Albumin 4.1 g/dL (3.5-5.0); Albumin Globulin Ratio 1.2 (1.0-2.8); Carbon Dioxide 26 mmol/L (22-32); Chloride 106 mmol/L (98-107); Globulin 3.5 g/dL (1.7-4.1); HEMOLYSIS < 15 (0-50); Total Protein 7.6 g/dL (6.3-8.2)
[2021-09-03 14:01] LABS: Alanine Aminotransferase 55 IU/L (<35); Alkaline Phosphatase 93 U/L (38-126); Aspartate Aminotransferase 26 IU/L (14-36); BUN Creatinine Ratio 25.9 (6-22); Bilirubin Total 0.5 mg/dL (0.2-1.3); Blood Urea Nitrogen 30 mg/dL (7-17); Calcium 9.9 mg/dL (8.4-10.2); Estimated Glomerular Filt Rate 46.6 mL/min (>60); Glucose 121 mg/dL (80-110); Sodium 142 mmol/L (137-145)
[2021-09-03 14:06] LABS: NT-proBNP (BNP-Adult 18+) 164 pg/mL (<125)
[2021-09-03 14:29] LABS: Thyroid Stimulating Hormone 0.881 uIU/mL (0.47-4.68)
== END ==
PROVIDERS: PCP Family Medicine; Referring Provider Physician Assistant; Visit Provider Physician Assistant
DX: R06.00 Dyspnea, unspecified (principal); R07.89 Other chest pain; R53.83 Other fatigue; U09.9 Post COVID-19 condition, unspecified; I25.10 Atherosclerotic heart disease of native coronary artery without angina pectoris; I10 Essential (primary) hypertension; J44.9 Chronic obstructive pulmonary disease, unspecified
CPT/HCPCS: 36415; 71046; 80053; 83880; 84443; 85025; 93005

== ENCOUNTER → 2021-09-19 12:36 | Outpatient (CLI) | payer MEDICARE, OTHER, SELFPAY ==
[2019-06-27 13:34] VITALS: BMI 33.3
--- NOTE | 2021-09-19 12:37 | DI.RAD.S_ITS ---
PROCEDURE: XR HIP W PEL IF DONE LT 2V INDICATIONS: left hip pain TECHNIQUE: AP pelvis with lateral view(s) of the left hip(s). COMPARISON: None. FINDINGS: Bones: No fractures or dislocations. Pelvic ring appears intact. No suspicious bony lesions. Mild joint narrowing with periarticular osteophyte formation. Degenerative disc and facet disease involves the inferior lumbar spine. Soft tissues: The visualized bowel gas pattern is normal. No suspicious soft tissue calcifications. IMPRESSION: Mild symmetric hip joint degeneration. Dictated by: Ellis Mccray [facility] Interpreted: Hair Bray MD on 09/19/2021 at 13:22 Transcribed by: VISHAL on 09/19/2021 at 13:27 Approved by: Hair Bray M.D. on 09/19/2021 at 17:00
== END ==
PROVIDERS: PCP Family Medicine; Referring Provider Family Medicine; Visit Provider Physician Assistant
DX: M25.552 Pain in left hip (principal); M16.12 Unilateral primary osteoarthritis, left hip
CPT/HCPCS: 73502

== ENCOUNTER → 2021-09-30 12:59 | Outpatient (CLI) | payer MEDICARE, OTHER, SELFPAY ==
[2019-06-27 13:34] VITALS: BMI 33.3
[2021-09-30 13:47] LABS: Add Manual Diff / Slide Review NO; Basophils Absolute Auto 100 /uL (0-100); Eosinophils Absolute Auto 100 /uL (0-450); Eosinophils Percent Auto 1.5 % (2-4); Hemoglobin 11.4 g/dL (12.0-16.0); Lymphocytes Absolute Auto 2300 /uL (1100-4500); Mean Corpuscular HGB Conc 33.5 % (30-36); Mean Corpuscular Hemoglobin 31.7 PG (26-34); Mean Corpuscular Volume 94.6 fL (80-100); Monocytes Absolute Auto 700 /uL (0-900); Monocytes Percent Auto 8.6 % (3-14); Neutrophils Absolute Auto 5000 /uL (1500-7000); Neutrophils Percent Auto 60.9 % (50-75); Platelet Count 334 X10^3/uL (150-400); Red Blood Cell Count 3.59 X10^6/uL (4.0-5.2); White Blood Cell Count 8.2 X10^3/uL (4.5-11.0)
[2021-09-30 14:54] LABS: Blood Urea Nitrogen 29 mg/dL (7-17); Calcium 9.5 mg/dL (8.4-10.2); Carbon Dioxide 25 mmol/L (22-32); Chloride 106 mmol/L (98-107); Estimated Glomerular Filt Rate 42.4 mL/min (>60); Glucose 99 mg/dL (80-110); HEMOLYSIS < 15 (0-50); Potassium 4.5 mmol/L (3.4-5.1); Sodium 141 mmol/L (137-145)
== END ==
PROVIDERS: PCP Family Medicine; Referring Provider Physician Assistant; Visit Provider Physician Assistant
DX: J12.82 Pneumonia due to coronavirus disease 2019 (principal); R79.89 Other specified abnormal findings of blood chemistry; U07.1 COVID-19
CPT/HCPCS: 36415; 80048; 85025

== ENCOUNTER → 2021-11-06 11:19 | Outpatient (CLI) | payer MEDICARE, OTHER, SELFPAY ==
[2019-06-27 13:34] VITALS: BMI 33.3
--- NOTE | 2021-11-06 11:20 | DI.RAD.S_ITS ---
PROCEDURE: XR LUMBAR SPINE MIN 4V INDICATIONS: LOW BACK PAIN TECHNIQUE: 4 views of the lumbar spine were acquired, including bilateral oblique views. COMPARISON: None. FINDINGS: Bones: 5 nonrib-bearing vertebrae are present. Mild levocurvature. Endplate sclerosis and osteophytosis, most prominent at L2-3 and L4-5, associated with at least moderate disc height loss. Facet arthrosis, most prominent at L5-S1. No vertebral body compression fractures. No suspicious bony lesions. Soft tissues: Overlying bowel gas pattern is normal. No suspicious soft tissue calcifications. Oblique images: No pars defects. IMPRESSION: Degenerative changes as detailed above. Dictated by: Chandrakant Roberts M.D. on 11/06/2021 at 12:03 Approved by: Chandrakant Roberts M.D. on 11/06/2021 at 12:05
== END ==
PROVIDERS: PCP Family Medicine; Referring Provider Family Medicine; Visit Provider Family Medicine
DX: M47.817 Spondylosis without myelopathy or radiculopathy, lumbosacral region (principal); M54.50 Low back pain, unspecified
CPT/HCPCS: 72110

== ENCOUNTER → 2022-07-03 13:00 | Outpatient (CLI) | payer MEDICARE, OTHER, SELFPAY ==
[2019-06-27 13:34] VITALS: BMI 33.3
== END ==
PROVIDERS: PCP Family Medicine; Referring Provider Physician Assistant; Visit Provider Physician Assistant
DX: R91.8 Other nonspecific abnormal finding of lung field (principal)

== ENCOUNTER → 2022-07-14 09:14 | Outpatient (CLI) | payer MEDICARE, OTHER, SELFPAY ==
[2019-06-27 13:34] VITALS: BMI 33.3
--- NOTE | 2022-07-14 09:15 | DI.CT.S_ITS ---
PROCEDURE: CT CHEST WO CON INDICATIONS: FU multiple lung nodules TECHNIQUE: Noncontrast 2.0-2.5 mm thick sections acquired from the pulmonary apices to the posterior costophrenic angles. 7 mm thick axial MIP and 5 mm coronal and sagittal reformats were then acquired. A low radiation dose technique was utilized. COMPARISON: [facility], CT, CT CHEST WO CON, 12/02/2020, 11:30. [facility], CT, CT CHEST WO CON, 06/30/2021, 9:57. FINDINGS: Image quality: Diagnostic, given the low radiation dose technique. Lungs and pleura: Mild scarring at the apices is redemonstrated. There are new, focal airspace opacities at the right apex. There is some central cavitation in this region. There are new scattered ground-glass radiopacities within the right upper lobe suggesting infection. The pulmonary nodule within the left upper lobe on the study dated June 30, 2021 is no longer visualized. There are no new discrete pulmonary nodules. Mediastinum: Heart size is normal. No pericardial effusion. No mediastinal adenopathy by size criteria. Thoracic aorta and central pulmonary arteries are normal in size. Esophagus is normal in caliber. No hiatal hernia. Bones and chest wall: No suspicious bony lesions. No vertebral body compression fractures. No axillary or supraclavicular adenopathy by size criteria. Thyroid gland is unremarkable. Abdomen: Visualized upper abdomen solid organs and bowel loops appear normal in the absence of contrast. IMPRESSION: 1. Resolution of the previously visualized left upper lobe pulmonary nodule. No new pulmonary nodules visualized. 2. Scattered right upper lung airspace opacities suspicious for infection/aspiration. 3-[address] follow-up is recommended to ensure resolution of these findings and exclude underlying neoplasm. Fleischner Society criteria for SOLID lung nodule followup. Nodule size (mm)Low-risk patientHigh-risk patient<6 (single or multiple)No routine followup.Optional CT at 12 months. 6-8 (single or multiple)CT at 6-12 months, then optional CT at 18-24 mo.CT at 6-12 months, then CT at 18-24 months. >8 (single)CT at 3 months, PET-CT, or biopsy. Same as for low-risk pts. >8 (multiple)CT at 3-6 months, then optional CT at 18-24 mo.CT at 3-6 months, then CT at 18-24 months. Fleischner Society criteria for SUB-SOLID lung nodule followup. Solitary pure ground-glass nodules<6 mm (ground glass or part solid)No followup needed. 6 mm or larger (ground glass)CT at 6-12 months to confirm persistence, then CT every 2 years until 5 years.6 mm or larger (part solid)CT at 3-6 months to confirm persistence, then annual CT until 5 years if unchanged and solid component remains <6 mm. Multiple sub-solid nodules<6 mmCT at 3-6 months, then CT consider at 2 & 4 years for high risk patients. [address] at 3-6 months. Subsequent management based on most suspicious lesions. Recommendations do not apply to lung cancer screening, patients with immunosuppression, or patients with known primary cancer. Dictated by: Karlene Alvarado M.D. on 07/14/2022 at 11:40 Approved by: Karlene Alvarado M.D. on 07/14/2022 at 11:45
== END ==
PROVIDERS: PCP Family Medicine; Referring Provider Physician Assistant; Visit Provider Physician Assistant
DX: R91.8 Other nonspecific abnormal finding of lung field (principal)
CPT/HCPCS: 71250

== ENCOUNTER → 2022-08-10 14:08 | Outpatient (CLI) | payer MEDICARE, OTHER, SELFPAY ==
[2019-06-27 13:34] VITALS: BMI 33.3
[2022-08-10 15:58] LABS: TSH w/ Reflex to FT4 3.77 uIU/mL (0.47-4.68)
== END ==
PROVIDERS: PCP Family Medicine; Referring Provider Family Medicine; Visit Provider Family Medicine
DX: E03.9 Hypothyroidism, unspecified (principal)
CPT/HCPCS: 36415; 84443

== ENCOUNTER → 2022-09-01 14:18 | Outpatient (CLI) | payer MEDICARE, OTHER, SELFPAY ==
[2019-06-27 13:34] VITALS: BMI 33.3
--- NOTE | 2022-09-01 14:21 | DI.MG.S_ITS ---
BILATERAL DIGITAL SCREENING MAMMOGRAM 3D/2D WITH CAD: 09/01/2022 CLINICAL: Routine screening. Comparison is made to exams dated: 08/18/2021 mammogram, 07/24/2019 mammogram - [facility], and 07/18/2018 mammogram - [facility]. There are scattered areas of fibroglandular density in both breasts (category b / 25%-50% glandular tissue). Current study was also evaluated with a Computer Aided Detection (CAD) system. No significant masses, calcifications, or other findings are seen in either breast. There has been no significant interval change. IMPRESSION: NEGATIVE There is no mammographic evidence of malignancy. A 1 year screening mammogram is recommended. Based on the Tyrer Cuzick model (a risk assessment model) the patient's lifetime risk is 8.1% and her 10 year risk is 4.5%. According to the ACR, ACS, and NCCN guidelines, an annual breast MRI exam along with mammogram is recommended if the patient's lifetime risk is 20% or greater. This exam was interpreted at Station ID: [id number]. NOTE: For mammograms, a report in lay terms will be sent to the patient. Approximately 15% of breast malignancies will not be visualized mammographically. In the management of a palpable breast mass, a negative mammogram must not discourage biopsy of a clinically suspicious lesion. Electronically Signed By: Karlene johns/keven:09/01/2022 14:43:30 letter sent: Normal Exam ACR BI-RADS Category 1: Negative [id number]
[2022-09-01 15:22] LABS: Add Manual Diff / Slide Review NO; Basophils Absolute Auto 100 /uL (0-100); Basophils Percent Auto 0.7 % (0-2); Eosinophils Absolute Auto 200 /uL (0-450); Eosinophils Percent Auto 2.6 % (2-4); Hematocrit 34.6 % (36-46); Hemoglobin 11.5 g/dL (12.0-16.0); Lymphocytes Absolute Auto 2500 /uL (1100-4500); Lymphocytes Percent Auto 31.1 % (25-40); Mean Corpuscular HGB Conc 33.4 % (30-36); Mean Corpuscular Hemoglobin 31.2 PG (26-34); Mean Corpuscular Volume 93.5 fL (80-100); Monocytes Absolute Auto 800 /uL (0-900); Monocytes Percent Auto 9.7 % (3-14); Neutrophils Absolute Auto 4500 /uL (1500-7000); Neutrophils Percent Auto 55.9 % (50-75); Platelet Count 322 X10^3/uL (150-400); Red Cell Distribution Width 13.3 % (11.6-14.8)
[2022-09-01 16:04] LABS: Alanine Aminotransferase 27 IU/L (<35); Albumin 4.4 g/dL (3.5-5.0); Albumin Globulin Ratio 1.2 (1.0-2.8); Alkaline Phosphatase 116 U/L (38-126); Aspartate Aminotransferase 65 IU/L (14-36); BUN Creatinine Ratio 25.6 (6-22); Bilirubin Total 0.6 mg/dL (0.2-1.3); Blood Urea Nitrogen 32 mg/dL (7-17); Calcium 9.2 mg/dL (8.4-10.2); Carbon Dioxide 24 mmol/L (22-32); Chloride 108 mmol/L (98-107); Cholesterol 151 mg/dL (140-199); Estimated Glomerular Filt Rate 47 mL/min (>60); Globulin 3.6 g/dL (1.7-4.1); Glucose 98 mg/dL (80-110); HDL Cholesterol 61 mg/dL (40-60); HEMOLYSIS < 15 (0-50); LDL Cholesterol Calculated 69 mg/dL (<100); Potassium 5.1 mmol/L (3.4-5.1); Sodium 141 mmol/L (137-145); Triglycerides 105 mg/dL (35-150)
== END ==
PROVIDERS: PCP Family Medicine; Referring Provider Family Medicine; Visit Provider Family Medicine
DX: Z12.31 Encounter for screening mammogram for malignant neoplasm of breast (principal); E78.5 Hyperlipidemia, unspecified; I10 Essential (primary) hypertension; I21.9 Acute myocardial infarction, unspecified; I73.9 Peripheral vascular disease, unspecified
CPT/HCPCS: 36415; 77063; 77067; 80053; 80061; 85025

== ENCOUNTER → 2022-10-12 08:15 | Outpatient (CLI) | payer MEDICARE, OTHER, SELFPAY ==
[2019-06-27 13:34] VITALS: BMI 33.3
== END ==
PROVIDERS: PCP Family Medicine; Referring Provider Internal Medicine Pulmonary Disease; Visit Provider Internal Medicine Pulmonary Disease
DX: J44.9 Chronic obstructive pulmonary disease, unspecified (principal); Z20.822 Contact with and (suspected) exposure to COVID-19
CPT/HCPCS: 87635; 94060; 94618; 94726; 94729; C9803

== ENCOUNTER → 2022-10-12 13:45 | Outpatient (CLI) | payer MEDICARE, OTHER, SELFPAY ==
[2019-06-27 13:34] VITALS: BMI 33.3
--- NOTE | 2022-10-14 09:35 | PM.PFT.1 ---
Pulmonary Function Test Referral & Results Date Patient Seen: 10/12/22 Requesting provider: Chacha Browne Results: The spirometry demonstrates an FVC of 2.21 L which is 72% of predicted. The FEV1 was measured at 1.63 L which is 70% of predicted. The FEV1/FVC ratio was 74 which is 97% of predicted. Following the administration of bronchodilator there was no appreciable change. Lung volumes show an SVC of 2.49 L which is 86% of predicted. The diffusing capacity was measured at 12.94 which is 53% of predicted. No hemoglobin value was provided, so no correction for potential anemia could be made, if appropriate. The maximum voluntary ventilation was normal Interpretation: This study demonstrates aiuh-si-[id number] obstructive lung disease based on reduction FEV1 although FEV1/FVC ratio is preserved. There is no evidence of benefit post bronchodilator There is a very minimal reduction in lung volumes suggesting the possibility of restrictive lung disease There is a moderate reduction diffusing capacity suggesting disease at the capillary alveolar level Compared to PFTs performed in December 2019, current study shows improvement in lung volumes but essentially unchanged forced spirometry. Diffusing capacity is minimally reduced compared to previous as well Clinical correlation suggested
== END ==
PROVIDERS: PCP Family Medicine; Referring Provider Internal Medicine Pulmonary Disease; Visit Provider Internal Medicine Pulmonary Disease
DX: J44.9 Chronic obstructive pulmonary disease, unspecified (principal); Z87.891 Personal history of nicotine dependence
CPT/HCPCS: 94060; 94726; 94729

== ENCOUNTER → 2022-10-14 10:41 | Outpatient (CLI) | payer MEDICARE, OTHER, SELFPAY ==
[2019-06-27 13:34] VITALS: BMI 33.3
--- NOTE | 2022-10-14 | DI.CT.S_ITS ---
PROCEDURE: CT CHEST HIGH RESOLUTION INDICATIONS: chronic obstructive pulmonary disease, unspecified TECHNIQUE: Noncontrast 1.0 and 5.0 mm thick contiguous axial sections from the pulmonary apex to the posterior costophrenic angles, with 7 mm thick coronal and sagittal MIP reformats. 1 mm thick dynamic expiratory images acquired through the upper, mid, and lower lungs. 1.0 mm thick axial sections acquired from the ary to the posterior costophrenic angles in the prone end-inspiration position. For radiation dose reduction, the following was used: automated exposure control, adjustment of mA and/or kV according to patient size. COMPARISON: [facility], CT, CT CHEST WO CON, 07/14/2022, 9:21. FINDINGS: Image quality: Adequate Lungs: Previously demonstrated patchy consolidative and ground-glass opacities at the right upper lobe has significantly decreased or resolved. There are multiple new patchy foci of consolidative and ground-glass nodularity however, for example within the right upper lobe (3/58) left upper lobe (3/109). Mild interval increase in opacities at the inferior aspect of the right upper lobe and right lower lobe. Minimal scattered areas of reticulation without pronounced apical basal gradient. No honeycombing demonstrated. No definite air trapping on dynamic images. Mild emphysema present. Pleura: No pleural effusions or pneumothorax. Mediastinum: No pericardial effusion. Thoracic aorta and central pulmonary arteries are normal in size. Esophagus is normal in caliber. Similar mild mediastinal adenopathy, nonspecific, could be reactive. Multivessel coronary artery calcifications and/or stents. Bones and chest wall: Multilevel degenerative change of the visualized spine. Abdomen: Visualized upper abdominal solid organs and bowel loops appear unremarkable. IMPRESSION: 1. Previously demonstrated right upper lobe opacities are significantly reduced or resolved. 2. New patchy ground-glass and consolidative opacities are present within the right upper lobe and left upper lobe, and other previous opacities have also increased. Findings are suspicious for an infectious or inflammatory etiology but are nonspecific. Correlation with the patient's symptoms for etiologies such as pneumonia may be helpful. 3. If clinically indicated imaging follow-up could be obtained in 3-6 months or other interval at clinical discretion. Dictated by: Mitch Young M.D. on 10/15/2022 at 11:52 Approved by: Mitch Young M.D. on 10/15/2022 at 12:20
== END ==
PROVIDERS: PCP Family Medicine; Referring Provider Internal Medicine Pulmonary Disease; Visit Provider Internal Medicine Pulmonary Disease
DX: R91.8 Other nonspecific abnormal finding of lung field (principal); J44.9 Chronic obstructive pulmonary disease, unspecified; I25.10 Atherosclerotic heart disease of native coronary artery without angina pectoris; M47.26 Other spondylosis with radiculopathy, lumbar region
CPT/HCPCS: 71250; 99213

== ENCOUNTER 2022-11-12 08:00 | Outpatient (CLI) | payer MEDICARE, OTHER, SELFPAY ==
[2022-11-11 10:17] VITALS: BMI 33.3
[2022-11-12] VITALS (8 sets, daily range): BP systolic 120–176; BP diastolic 63–101; PULSE 63–70; RESP 14–20; TEMP 36.1; O2SAT 97–100
--- NOTE | 2022-11-12 08:01 | DI.RAD.S_ITS ---
PROCEDURE: PAIN L/S FACET INJ/BLK 1ST NIRAV COMPARISON: [facility], RG, MRI L-SPINE W/O CONTRAST, 02/16/2022, 12:41. INDICATIONS: SPONDYLOSIS FINDINGS: Fluoroscopic spot filming was performed to verify placement of spinal needles on both sides at the L3-L4 and L4-L5 levels, as labeled on the films. Appropriate location of the needle tips was confirmed by injection of iodinated contrast. IMPRESSION: Intraprocedural examination demonstrating appropriate positions of the needles. Dictated by: Peng Solis M.D. on 11/12/2022 at 14:58 Approved by: Peng Solis M.D. on 11/12/2022 at 14:59
[2022-11-12] MEDS: BETAMETHASONE 30 MG/5 ML MDV 12 MG INJ (09:30)
[2022-11-12] MEDS: LIDOCAINE 1% (PF) 5 ML INJ (09:31)
[2022-11-12] MEDS: BUPIVACAINE 0.5% (PF) 30 ML VIAL 5 ML INJ (09:31)
[2022-11-12] MEDS: IOPAMIDOL 15 ML VIAL 3 ML INJ (09:32)
--- NOTE | 2022-11-12 09:38 | P.PCN_ITS ---
Date/Time/Diagnoses Date of procedure: 11/12/22 Time of procedure: 09:38 Pre-procedure diagnosis: 1. FACET ARTHROPATHY 2. AXIAL LBP 3. MULTILEVEL DDD Post-procedure diagnosis: same Procedure Notes Procedure: 1. FLUORSCOPICALLY GUIDED CONTRAST CONTROLLED FACET JOINT INJECTIONS BILATERAL L3/4, L4/5 Indications: Josselyn is referred by Dr. Felipe for treatment of Axial LBP Physician: Emigdio Castañeda Total Fluoroscopy time (seconds): 12 Total sedation minutes: 12 Complications: none Procedure in detail & Post-procedure care: FINDINGS Multilevel Facet Arthropathy with Clinically significant axial LBP DESCRIPTION OF PROCEDURE Fluoroscopically guided, contrast-controlled bilateral L3/4, L4/5 facet joint injections. Following review of allergy and review of potential side effects and complications, including, but not necessarily limited to, infection, allergic reaction, local tissue breakdown, stroke, temporary or permanent nerve injury, paralysis, and possible , the patient indicated that the patient understood and agreed to proceed. An informed consent document was signed by the patient, witnessed by a nurse, and placed in the patient's chart. Additionally, other treatment options including medications, modalities, and physical therapy were reviewed with the patient. After review of previous anaesthesic history and IV conscious sedation the patient was deemed safe to proceed with today's procedure with IV conscious sedation as ASA class II designation. Safety time-out was performed to confirm patient ID, procedure to be performed and site of procedure. IV sedation was accomplished with a combination of 1mg of Versed was administered by the RN after DO order, titrated to patient comfort during the course of the procedure while the patient remained responsive to all verbal commands. In the prone position, following sterile prep and drape of the lumbar region, the posterior aspect of the L3/4, L4/5 facet joints were identified fluoroscopically. The skin was anesthetized via a 25-gauge 1.5-inch needle with 1% lidocaine solution into the corresponding facet joints. At this point, a 22- gauge 3.5-inch spinal needle was atraumatically introduced and advanced under fluoroscopic guidance into the corresponding facet joints. Following negative aspiration, injections of approximately 0.2cc of Isovue 200 confirmed interarticular placement without vascular uptake. The identical procedure was then performed at the L3/4, L4/5 facet joints on the left. Radiological data, including multiple fluoroscopic views of the lumbosacral spine, reveal a spinal needle at the L3/4, L4/5 facet joints bilaterally. Subsequent views show flow of contrast material both superiorly and inferiorly within the joint space without vascular or intrathecal uptake. At this point, a total of 0.5cc including a mixture of 0.25cc Marcaine and 0.25cc betamethasone was injected without complication into each of the corresponding facet joints. The patient tolerated the procedure well without signs or symptoms of complications prior to transfer to the recovery area continued monitoring without incident. The patient was then transferred to the recovery area where they were observed for an appropriate period of time after the injection. The patient reported a VAS score of 7 prior to the procedure and a post-procedure VAS of 0. POST OP INSTRUCTIONS The patient was provided a Pain Log to continue to record their response to the target-specific procedure prior to follow-up visit with their referring physician. Additionally, specific post-injection care instructions and a contact number to our office were provided if concerns arise regarding possible complications associated with the procedure are suspected.
== END 2022-11-12 10:00 | disposition home or self-care (01) ==
LOC: RAD 08:01
PROVIDERS: PCP Family Medicine; Referring Provider Physical Medicine & Rehabilitation; Visit Provider Physical Medicine & Rehabilitation
DX: M47.816 Spondylosis without myelopathy or radiculopathy, lumbar region (principal); M51.36 Other intervertebral disc degeneration, lumbar region
CPT/HCPCS: 64493; 64494; 99152; J0702; J2250

== ENCOUNTER → 2022-12-15 15:22 | Outpatient (CLI) | payer MEDICARE, OTHER, SELFPAY ==
[2022-11-11 10:17] VITALS: BMI 33.3
--- NOTE | 2022-12-15 | DI.RAD.S_ITS ---
PROCEDURE: XR CHEST 2V INDICATIONS: Chronic obstructive pulmonary disease TECHNIQUE: 2 views of the chest were acquired. COMPARISON: [facility], CR, XR CHEST 2V, 09/03/2021, 13:05. FINDINGS: Surgical changes and devices: None. Lungs and pleura: Lungs are clear. No pleural effusions or pneumothorax. Mediastinum: Mediastinal contours are normal. Heart size is normal. Bones and chest wall: No suspicious bony abnormalities. Soft tissues appear unremarkable. IMPRESSION: No evidence acute pulmonary process. Dictated by: Wes Arellano M.D. on 12/15/2022 at 19:36 Approved by: Wes Arellano M.D. on 12/15/2022 at 19:36
== END ==
PROVIDERS: PCP Family Medicine; Referring Provider Internal Medicine Pulmonary Disease; Visit Provider Internal Medicine Pulmonary Disease
DX: J44.9 Chronic obstructive pulmonary disease, unspecified (principal)
CPT/HCPCS: 71046

== ENCOUNTER → 2023-03-05 10:38 | Outpatient (CLI) | payer MEDICARE, OTHER, SELFPAY ==
[2022-11-11 10:17] VITALS: BMI 33.3
--- NOTE | 2023-03-09 07:35 | PM.PFT.1 ---
Pulmonary Function Test Referral & Results Date Patient Seen: 03/05/23 Results: This is a rest and exercise oxygen titration study Patient's room air oxygen saturation was 94% with a pulse of 64 At 1 minute patient was at 90 ft with room air saturation of 95% pulse of 76 A 2 minutes patient was 190 ft with room air saturation of 95% and pulse of 79 At 3 minutes patient was at 300 ft with room air saturation of 93% pulse of 80 At 4 minutes patient was at 400 ft room air saturation 92% and pulse of 80 At 5 minutes patient was at 490 ft with room air saturation of 92% pulse of 81 At 6 minutes patient was 600 ft room air saturation 91% pulse of 76 3 minutes post exercise room air saturation was 97% with pulse of 66
== END ==
PROVIDERS: PCP Family Medicine; Referring Provider Internal Medicine Pulmonary Disease; Visit Provider Internal Medicine Pulmonary Disease
DX: J44.9 Chronic obstructive pulmonary disease, unspecified (principal); Z87.891 Personal history of nicotine dependence
CPT/HCPCS: 94010; 94618

== ENCOUNTER 2023-03-11 10:34 | Outpatient (CLI) | payer MEDICARE, OTHER, SELFPAY ==
[2022-11-11 10:17] VITALS: BMI 33.3
[2023-03-11] VITALS (9 sets, daily range): BP systolic 98–185; BP diastolic 60–79; PULSE 60–71; RESP 16–20; TEMP 36.4; O2SAT 96–100
--- NOTE | 2023-03-11 10:36 | DI.RAD.S_ITS ---
PROCEDURE: PAIN L INTERLAMINAR/CAUDAL INJ INDICATIONS: SPONDYLOSIS COMPARISON: [facility], XA, PAIN L/S FACET INJ/BLK 1ST NIRAV, 11/12/2022, 10:25. FINDINGS: Fluoroscopic spot filming was performed to verify placement of a spinal needle at the L1-L2 level, as labeled on the films. Appropriate location of the needle tip was confirmed by injection of iodinated contrast. IMPRESSION: Intraprocedural examination within normal limits. Dictated by: Peng Solis M.D. on 03/11/2023 at 11:46 Approved by: Peng Solis M.D. on 03/11/2023 at 11:46
[2023-03-11] MEDS: MIDAZOLAM 2 MG/2 ML VIAL IV (11:57)
[2023-03-11] MEDS: BETAMETHASONE 30 MG/5 ML MDV 6 MG INJ (11:59)
[2023-03-11] MEDS: BUPIVACAINE 0.25% (PF) VIAL 2 ML INJ (11:59)
[2023-03-11] MEDS: IOPAMIDOL 15 ML VIAL 3 ML INJ (12:00)
[2023-03-11] MEDS: DEXAMETHASONE 10 MG/ML VIAL 20 MG INJ (12:00)
--- NOTE | 2023-03-11 12:05 | P.PCN_ITS ---
Date/Time/Diagnoses Date of procedure: 03/11/23 Time of procedure: 12:05 Pre-procedure diagnosis: 1. HNP WITH RADICULAR FEATURES, 2. MULTILEVEL CENTRAL STENOSIS, Post-procedure diagnosis: same Procedure Notes Procedure: 1. FLUOROSCOPICALLY GUIDED CONTRAST CONTROLLED INTERLAMINAR EPIDURAL STEROID INJECTION - L1/2 Indications: Josselyn is referred by Dr. Felipe for treatment of Bilateral Foraminal Stenosis L>R LE symptoms. Physician: Emigdio Castañeda Total Fluoroscopy time (seconds): 6 Total sedation minutes: 10 Complications: none Procedure in detail & Post-procedure care: FINDINGS Multilevel Central Spinal Stenosis with Nerve Root Compression DESCRIPTION OF PROCEDURE Fluoroscopically guided, contrast-controlled L1/2 translaminar epidural steroid injection. Following review of allergy and review of potential side effects and complications, including, but not necessarily limited to, infection, allergic reaction, local tissue breakdown, temporary as well as permanent nerve injury, paralysis, stroke and possible , the patient indicated that the patient understood and agreed to proceed. An informed consent document was signed by the patient, witnessed by a nurse, and placed in the patient's chart. Additionally, other treatment options including modalities, medications, and physical therapy were reviewed with the patient. After review of previous anaesthesic history and IV conscious sedation the patient was deemed safe to proceed with todays procedure with IV conscious sedation as ASA class II designation. Safety time-out was performed to confirm patient ID, procedure to be performed and site of procedure. IV sedation was accomplished with a combination of 2mg of Versed was administered by the RN after DO order, titrated to patient comfort during the course of the procedure while the patient remained responsive to all verbal commands In the prone position, following sterile prep and drape of the lumbar region, the L1/2 translaminar space was identified fluoroscopically. The skin was anesthetized via a 25-gauge, 1.5-inch needle with 1% lidocaine solution. At this point, a 22-gauge short bevel spinal needle was atraumatically introduced a nd advanced under fluoroscopic guidance into the region of the L1/2 translaminar space. Depth was confirmed on lateral view. Radiological data, including multiple fluoroscopic views of the lumbar spine, reveal a spinal needle at the L1/2 translaminar space. Lateral views then show placement of the needle in the epidural space. Subsequent views show contrast material flowing superiorly and inferiorly in the epidural space. No vascular or intrathecal uptake is observed. At this point, using loss of resistance technique with saline and air, the epidural space was entered. This was confirmed following negative aspiration with injection of approximately 1.5 cc of Isovue 200, showing excellent epidural flow without vascular or intrathecal uptake. At this point, 1 cc of 1% lidocaine solution combined with 3cc or 20mg of dexamethasone and 6mg of betamethasone was injected without incident. The patient tolerated the procedure well without signs or symptoms of complications prior to transfer to the recovery area continued monitoring without incident. The patient was then transferred to the recovery area where they were observed for an appropriate period of time after the injection. The patient reported a VAS score of 6 prior to the procedure and a post- procedure VAS of 0. POST OP INSTRUCTIONS The patient was provided a Pain Log to continue to record their response to the target-specific procedure prior to follow-up visit with their referring physician. Additionally, specific post-injection care instructions and a contact number to our office were provided if concerns arise regarding possible complications associated with the procedure are suspected.
== END 2023-03-11 12:32 | disposition home or self-care (01) ==
LOC: RAD 10:35
PROVIDERS: PCP Family Medicine; Referring Provider Physical Medicine & Rehabilitation; Visit Provider Physical Medicine & Rehabilitation
DX: M51.16 Intervertebral disc disorders with radiculopathy, lumbar region (principal); M48.061 Spinal stenosis, lumbar region without neurogenic claudication
CPT/HCPCS: 62323; 99152; J0702; J1100; J2250; J3490

== ENCOUNTER 2023-08-19 09:42 | Outpatient (CLI) | payer MEDICARE, OTHER, SELFPAY ==
[2023-07-26 15:14] VITALS: BMI 33.3
[2023-08-19] VITALS (9 sets, daily range): BP systolic 125–155; BP diastolic 63–114; PULSE 58–71; RESP 11–19; TEMP 36.4; O2SAT 98–100
--- NOTE | 2023-08-19 09:43 | DI.RAD.S_ITS ---
PROCEDURE: PAIN L/S FACET INJ/BLK 1ST NIRAV INDICATIONS: SPONDYLOSIS COMPARISON: [facility], , PAIN L/S FACET INJ/BLK 1ST NIRAV, 11/12/2022, 10:25. FINDINGS: Fluoroscopic spot filming was performed to verify placement of spinal needles at the right L4, right L5, and right S1 medial branch level(s), as labeled on the films. IMPRESSION: Fluoroscopic imaging guidance provided for multilevel medial branch block procedure performed by referring pain physician. Dictated by: Wes Arellano M.D. on 08/19/2023 at 15:54 Approved by: Wes Arellano M.D. on 08/19/2023 at 15:55
[2023-08-19] MEDS: MIDAZOLAM 2 MG/2 ML VIAL IV (10:48)
[2023-08-19] MEDS: LIDOCAINE 1% 20 ML 5 ML INJ (10:55)
[2023-08-19] MEDS: iopamidoL 15 ML VIAL 3 ML INJ (10:56)
[2023-08-19] MEDS: BUPIVACAINE 0.5% (PF) 10 ML VIAL 5 ML INJ (10:56)
--- NOTE | 2023-08-19 11:09 | P.PCN_ITS ---
Date/Time/Diagnoses Date of procedure: 08/19/23 Time of procedure: 11:09 Pre-procedure diagnosis: 1. FACET ARTHROPATHY Post-procedure diagnosis: same Procedure Notes Procedure: 1. BILATERAL- L4, L5 and S1 DIAGNOSTIC MB BLOCKS with LA Anesthetic Indications: Josselyn is referred by Dr. Felipe for treatment of Bilateral Axial LBP. Physician: Emigdio Castañeda Total Fluoroscopy time (seconds): 18 Total sedation minutes: 16 Complications: none Procedure in detail & Post-procedure care: DESCRIPTION OF PROCEDURE Fluoroscopically guided, contrast-controlled bilateral L4, L5 and S1 medial branch blocks with 0.5cc of 0.5% Marcaine. Following review of allergy and review of potential side effects and complications, including, but not necessarily limited to, infection, allergic reaction, local tissue breakdown, nerve injury, paralysis, stroke and possible , the patient indicated that the patient understood and agreed to proceed. An informed consent document was signed by the patient, witnessed by a nurse, and placed in the patient's chart. After review of previous anaesthesic history and IV conscious sedation the patient was deemed safe to proceed with today's procedure with IV conscious sedation as ASA class II designation. Safety time-out was performed to confirm patient ID, procedure to be performed and site of procedure. IV sedation was accomplished with a combination of 2mg of Versed was administered by the RN after DO order, titrated to patient comfort during the course of the procedure while the patient remained responsive to all verbal commands In the prone position, following sterile prep and drape of the lumbar region, the right L4, L5 and S1 anatomical location of the medial branch of the dorsal ramus was identified fluoroscopically. Subsequently an anesthetic skin wheal using 1% lidocaine solution was initiated at each of the anatomical spots. Subsequently then a 22-gauge 3.5-inch spinal needle was atraumatically introduced and advanced under fluoroscopic guidance at each of the corresponding sites at the right L4, L5 and S1 MB. After negative aspiration, 0.2cc of Isovue 200 was injected, confirming placement without vascular or intrathecal uptake. Subsequently then 0.5cc of 0.5% Marcaine solution was injected at each of the corresponding sites at the right L4, L5 and S1 medial branch locations. The identical procedure was replicated on the left. The patient tolerated the procedure well without signs or symptoms of complications prior to transfer to the recovery area continued monitoring without incident. Post-procedure, the patient was monitored initiating provocative activities to measure the amount of relief from block of the facetogenic pain. The patient reported a VAS of 7 prior to the procedure and a post-procedure VAS of 1. It has been a pleasure to assist in the diagnostic and therapeutic care of your patient. POST OP INSTRUCTIONS The patient was provided with a Pain Log to complete over the next several hours and subsequent days prior to the patient's follow up with the ordering physician. If the patient has grocery supervisor relief to the solution applied, then they may be a candidate for medial branch rhizotomy. The patient is aware, was provided, once again, with a Pain Log and will follow up with the referring physician for review and clinical correlation
== END 2023-08-19 11:23 | disposition home or self-care (01) ==
LOC: RAD 09:43
PROVIDERS: PCP Family Medicine; Referring Provider Physical Medicine & Rehabilitation; Visit Provider Physical Medicine & Rehabilitation
DX: M47.816 Spondylosis without myelopathy or radiculopathy, lumbar region (principal)
CPT/HCPCS: 64493; 64494; 99152; J2250

== ENCOUNTER → 2023-08-24 13:12 | Outpatient (CLI) | payer MEDICARE, OTHER, SELFPAY ==
[2023-07-26 15:14] VITALS: BMI 33.3
--- NOTE | 2023-08-24 13:13 | DI.US.S_ITS ---
PROCEDURE: US PERIPH VENOUS LOW EXTREM LT INDICATIONS: PAIN - RULE OUT DEEP VEIN THROMBOSIS/ARECO CYST. TECHNIQUE: Real-time imaging, as well as color and pulse Doppler interrogation, were performed of the lower extremity deep veins from the inguinal ligament to the popliteal fossa, with documentation of the visualized calf veins. COMPARISON: None. FINDINGS: The common femoral, femoral, popliteal, and the visualized calf veins are normally compressible, and free of intraluminal thrombus. Color and pulse Doppler demonstrate normal phasic intraluminal flow. There is normal augmentation response to distal compression maneuver. At the level of the knee, there are 2 fluid collections seen measuring up to 2.2 cm and up to 2.1 cm, respectively. No abnormal vascularity can be seen associated with these fluid collections. These are not related to Arceo's cysts. IMPRESSION: No findings of lower extremity deep venous thrombosis. No Arceo's cyst is seen. Two nonvascular fluid collections can be seen adjacent to the knee, with the largest measuring up to 2.2 cm. Dictated by: Peng Solis M.D. on 08/24/2023 at 14:06 Approved by: Peng Solis M.D. on 08/24/2023 at 14:07
== END ==
PROVIDERS: PCP Family Medicine; Referring Provider Physician Assistant; Visit Provider Physician Assistant
DX: M79.605 Pain in left leg (principal)
CPT/HCPCS: 93971

== ENCOUNTER → 2023-09-15 06:54 | Outpatient (CLI) | payer MEDICARE, OTHER, SELFPAY ==
[2023-07-26 15:14] VITALS: BMI 33.3
--- NOTE | 2023-09-15 06:56 | DI.MG.S_ITS ---
BILATERAL DIGITAL SCREENING MAMMOGRAM 3D/2D WITH CAD: 09/15/2023 CLINICAL: Routine screening. Family history of breast cancer. Comparison is made to exams dated: 09/01/2022 mammogram, 08/18/2021 mammogram, and 07/24/2019 mammogram - [facility]. There are scattered areas of fibroglandular density in both breasts (category b / 25%-50% glandular tissue). Current study was also evaluated with a Computer Aided Detection (CAD) system. No significant masses, calcifications, or other findings are seen in either breast. There has been no significant interval change. IMPRESSION: NEGATIVE There is no mammographic evidence of malignancy. A 1 year screening mammogram is recommended. Based on the Tyrer Cuzick model (a risk assessment model) the patient's lifetime risk is 7.7% and her 10 year risk is 4.6%. According to the ACR, ACS, and NCCN guidelines, an annual breast MRI exam along with mammogram is recommended if the patient's lifetime risk is 20% or greater. This exam was interpreted at Station ID: [id number]. NOTE: For mammograms, a report in lay terms will be sent to the patient. Approximately 15% of breast malignancies will not be visualized mammographically. In the management of a palpable breast mass, a negative mammogram must not discourage biopsy of a clinically suspicious lesion. Electronically Signed By: Iglesia albright/keven:09/15/2023 12:17:45 letter sent: Normal Exam ACR BI-RADS Category 1: Negative [id number]
[2023-09-15 07:48] LABS: Add Manual Diff / Slide Review NO; Basophils Absolute Auto 100 /uL (0-100); Basophils Percent Auto 0.8 % (0-2); Eosinophils Absolute Auto 200 /uL (0-450); Eosinophils Percent Auto 4.1 % (2-4); Hematocrit 33.7 % (36-46); Hemoglobin 11.2 g/dL (12.0-16.0); Lymphocytes Absolute Auto 2200 /uL (1100-4500); Lymphocytes Percent Auto 35.9 % (25-40); Mean Corpuscular HGB Conc 33.1 % (30-36); Mean Corpuscular Hemoglobin 31.6 PG (26-34); Mean Corpuscular Volume 95.3 fL (80-100); Monocytes Absolute Auto 500 /uL (0-900); Monocytes Percent Auto 8.3 % (3-14); Neutrophils Absolute Auto 3100 /uL (1500-7000); Neutrophils Percent Auto 50.9 % (50-75); Platelet Count 278 X10^3/uL (150-400); Red Blood Cell Count 3.54 X10^6/uL (4.0-5.2); Red Cell Distribution Width 13.1 % (11.6-14.8); White Blood Cell Count 6.1 X10^3/uL (4.5-11.0)
[2023-09-15 08:15] LABS: Alanine Aminotransferase 28 IU/L (<35); Albumin 4.1 g/dL (3.5-5.0); Albumin Globulin Ratio 1.2 (1.0-2.8); Alkaline Phosphatase 115 U/L (38-126); Aspartate Aminotransferase 24 IU/L (14-36); BUN Creatinine Ratio 25.4 (6-22); Bilirubin Total 0.8 mg/dL (0.2-1.3); Blood Urea Nitrogen 31 mg/dL (7-17); Calcium 9.6 mg/dL (8.4-10.2); Carbon Dioxide 25 mmol/L (22-32); Chloride 107 mmol/L (98-107); Cholesterol 171 mg/dL (140-199); Estimated Glomerular Filt Rate 48 mL/min (>60); Globulin 3.3 g/dL (1.7-4.1); Glucose 136 mg/dL (80-110); HDL Cholesterol 56 mg/dL (40-60); HEMOLYSIS < 15 (0-50); LDL Cholesterol Calculated 92 mg/dL (<100); Potassium 4.7 mmol/L (3.4-5.1); Sodium 141 mmol/L (137-145); Total Protein 7.4 g/dL (6.3-8.2); Triglycerides 117 mg/dL (35-150)
== END ==
PROVIDERS: PCP Family Medicine; Referring Provider Family Medicine; Visit Provider Family Medicine
DX: Z12.31 Encounter for screening mammogram for malignant neoplasm of breast (principal); K21.9 Gastro-esophageal reflux disease without esophagitis; E78.5 Hyperlipidemia, unspecified; R06.81 Apnea, not elsewhere classified; Z80.3 Family history of malignant neoplasm of breast; E03.9 Hypothyroidism, unspecified; I10 Essential (primary) hypertension
CPT/HCPCS: 36415; 77063; 77067; 80053; 80061; 84443; 85025

== ENCOUNTER 2023-09-28 10:08 | Outpatient (CLI) | payer MEDICARE, OTHER, SELFPAY ==
[2023-07-26 15:14] VITALS: BMI 33.3
[2023-09-28] VITALS (8 sets, daily range): BP systolic 133–167; BP diastolic 57–95; PULSE 65–72; RESP 15–20; TEMP 36.4; O2SAT 95–100
--- NOTE | 2023-09-28 | DI.RAD.S_ITS ---
PROCEDURE: PAIN L/S FACET INJ/BLK 1ST NIRAV INDICATIONS: Arthropathy of lumbar facet joint COMPARISON: [facility], , PAIN L/S FACET INJ/BLK 1ST NIRAV, 08/19/2023, 10:57. FINDINGS: Fluoroscopic spot filming was performed to verify placement of spinal needles on both sides at the L4, L5, and S1 levels, as labeled on the films. Appropriate location of the needle tips was confirmed by injection of iodinated contrast. IMPRESSION: Intraprocedural examination demonstrating appropriate positions of the needles. Dictated by: Peng Solis M.D. on 09/28/2023 at 12:18 Approved by: Peng Solis M.D. on 09/28/2023 at 12:19
[2023-09-28] MEDS: MIDAZOLAM 2 MG/2 ML VIAL IV (11:30)
[2023-09-28] MEDS: LIDOCAINE 2% INJ MDV 20ML 5 ML INJ (11:35)
[2023-09-28] MEDS: iopamidoL 15 ML VIAL 3 ML INJ (11:36)
[2023-09-28] MEDS: LIDOCAINE 1% 20 ML 5 ML INJ (11:36)
--- NOTE | 2023-09-28 11:51 | P.PCN_ITS ---
Date/Time/Diagnoses Date of procedure: 09/28/23 Time of procedure: 11:52 Pre-procedure diagnosis: 1. FACET ARTHROPATHY Post-procedure diagnosis: same Procedure Notes Procedure: 1. BILATERAL- L4, L5 and S1 DIAGNOSTIC MB BLOCKS with SA Anesthetic Indications: Josselyn is referred by Dr. Felipe for treatment of Bilateral Axial LBP. Physician: Emigdio Castañeda Total Fluoroscopy time (seconds): 8 Total sedation minutes: 15 Complications: none Procedure in detail & Post-procedure care: DESCRIPTION OF PROCEDURE Fluoroscopically guided, contrast-controlled bilateral L4, L5 and S1 medial branch blocks with 0.5cc of 2% Lidocaine. Following review of allergy and review of potential side effects and complications, including, but not necessarily limited to, infection, allergic reaction, local tissue breakdown, nerve injury, paralysis, stroke and possible , the patient indicated that the patient understood and agreed to proceed. An informed consent document was signed by the patient, witnessed by a nurse, and placed in the patient's chart. After review of previous anaesthesic history and IV conscious sedation the patient was deemed safe to proceed with today's procedure with IV conscious sedation as ASA class II designation. Safety time-out was performed to confirm patient ID, procedure to be performed and site of procedure. IV sedation was accomplished with a combination of 2mg of Versed was administered by the RN after DO order, titrated to patient comfort during the course of the procedure while the patient remained responsive to all verbal commands In the prone position, following sterile prep and drape of the lumbar region, the right L4, L5 and S1 anatomical location of the medial branch of the dorsal ramus was identified fluoroscopically. Subsequently an anesthetic skin wheal us ing 1% lidocaine solution was initiated at each of the anatomical spots. Subsequently then a 22-gauge 3.5-inch spinal needle was atraumatically introduced and advanced under fluoroscopic guidance at each of the corresponding sites at the right L4, L5 and S1 MB. After negative aspiration, 0.2cc of Isovue 200 was injected, confirming placement without vascular or intrathecal uptake. Subsequently then 0.5cc of 2% Lidocaine solution was injected at each of the corresponding sites at the right L4, L5 and S1 medial branch locations. The identical procedure was replicated on the left. The patient tolerated the procedure well without signs or symptoms of complications prior to transfer to the recovery area continued monitoring without incident. Post-procedure, the patient was monitored initiating provocative activities to measure the amount of relief from block of the facetogenic pain. The patient reported a VAS of 8 prior to the procedure and a post-procedure VAS of 1. It has been a pleasure to assist in the diagnostic and therapeutic care of your patient. POST OP INSTRUCTIONS The patient was provided with a Pain Log to complete over the next several hours and subsequent days prior to the patient's follow up with the ordering physician. 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 The patient is aware, was provided, once again, with a Pain Log and will follow up with the referring physician for review and clinical correlation
== END 2023-09-28 12:05 | disposition home or self-care (01) ==
LOC: RAD 10:09
PROVIDERS: PCP Family Medicine; Referring Provider Physical Medicine & Rehabilitation; Visit Provider Physical Medicine & Rehabilitation
DX: M47.816 Spondylosis without myelopathy or radiculopathy, lumbar region (principal)
CPT/HCPCS: 64493; 64494; 99152; J2250

== ENCOUNTER → 2023-10-27 10:51 | Outpatient (CLI) | payer MEDICARE, OTHER, SELFPAY ==
[2023-07-26 15:14] VITALS: BMI 33.3
[2023-10-27 12:04] LABS: COVID-19 CEPHEID 4-PLEX PCR Negative (Negative); Influenza A - CEPHEID Flu A NEGATIVE (NEGATIVE); Influenza B - CEPHEID Flu B NEGATIVE (NEGATIVE); Respiratory Syncytial Virus POSITIVE (Negative)
== END ==
PROVIDERS: PCP Family Medicine; Visit Provider Nurse Practitioner Family
DX: R05.1 Acute cough (principal)
CPT/HCPCS: 0241U

== ENCOUNTER → 2023-10-27 11:06 | Outpatient (CLI) | payer MEDICARE, OTHER, SELFPAY ==
[2023-07-26 15:14] VITALS: BMI 33.3
--- NOTE | 2023-10-27 11:08 | DI.RAD.S_ITS ---
PROCEDURE: XR CHEST 2V INDICATIONS: Shortness at breath TECHNIQUE: 2 views of the chest were acquired. COMPARISON: [facility], , XR CHEST 2V, 12/15/2022, 15:25. [facility], CR, XR CHEST 2V, 09/03/2021, 13:05. FINDINGS: Surgical changes and devices: None. Lungs and pleura: Lungs are clear. No pleural effusions or pneumothorax. Mediastinum: Mediastinal contours are normal. Heart size is normal. Bones and chest wall: No suspicious bony abnormalities. Soft tissues appear unremarkable. IMPRESSION: No acute cardiopulmonary abnormality is seen. Dictated by: Wilder Arteaga M.D. on 10/27/2023 at 13:35 Approved by: Wilder Arteaga M.D. on 10/27/2023 at 13:36
== END ==
PROVIDERS: PCP Family Medicine; Referring Provider Nurse Practitioner Family; Visit Provider Nurse Practitioner Family
DX: R06.02 Shortness of breath (principal); R05.1 Acute cough
CPT/HCPCS: 0241U; 71046

== ENCOUNTER 2023-11-04 07:12 | Outpatient (CLI) | payer MEDICARE, OTHER, SELFPAY ==
[2023-07-26 15:14] VITALS: BMI 33.3
[2023-11-04] VITALS (14 sets, daily range): BP systolic 113–159; BP diastolic 54–89; PULSE 55–67; RESP 13–25; TEMP 36.2; O2SAT 96–100
--- NOTE | 2023-11-04 08:00 | DI.RAD.S_ITS ---
PROCEDURE: PAIN L/S FACET INJ/BLK 1ST NIRAV INDICATIONS: Bilateral L4, L5 and S1 medial branch RFA COMPARISON: CR, XR LUMBAR SPINE MIN 4V, 11/06/2021, 11:12. FINDINGS: Fluoroscopic spot filming was performed to verify placement of spinal needles at the L4, L5 and S1 level(s) bilaterally, as labeled on the films. Appropriate location(s) of the needle tip(s) was confirmed by injection of iodinated contrast. IMPRESSION: Fluoroscopy for pain management. Dictated by: Yulia Tarango M.D. on 11/04/2023 at 10:50 Approved by: Yulia Tarango M.D. on 11/04/2023 at 10:51
[2023-11-04] MEDS: MIDAZOLAM 2 MG/2 ML VIAL 1 MG IV ×4 (08:10→08:43)
[2023-11-04] MEDS: BUPIVACAINE 0.5% (PF) 10 ML VIAL 5 ML INJ (08:18)
[2023-11-04] MEDS: LIDOCAINE 1% 20 ML 5 ML INJ (08:18)
--- NOTE | 2023-11-04 08:56 | P.PCN_ITS ---
Date/Time/Diagnoses Date of procedure: 11/04/23 Time of procedure: 08:56 Pre-procedure diagnosis: 1. RECALCITRANT FACET ARTHROPATHY Post-procedure diagnosis: same Procedure Notes Procedure: 1. BILATERAL L4 AND L5 MEDIAL BRANCH RADIOFREQUENCY NEUROTOMY AND S1 DORSAL RAMUS BRANCH RADIOFREQUENCY NEUROTOMY Indications: Josselyn is referred by Dr. Felipe for treatment of facet arthropathy. Physician: Emigdio Castañeda Total Fluoroscopy time (seconds): 15 Total sedation minutes: 41 Complications: none Procedure in detail & Post-procedure care: DESCRIPTION OF PROCEDURE Bilateral L4 and L5 medial branch radiofrequency neurotomy and bilateral S1 dorsal ramus radiofrequency neurotomy under fluoroscopy with conscious sedation. The patient is well known to this clinic having undergone previous facet injections with good but temporary relief. The patient has experienced appropriate, concordant relief with previous facet and median branch blocks but the patient's pain has been recalcitrant to further conservative measures. Therefore, based upon the patient's relief and persistent symptoms, the patient is considered an appropriate candidate for facet rhizotomy. All of the patient's questions regarding the risks versus benefits of the procedure, including, but not limited to, bleeding, infection, temporary as well as lasting nerve injury, paralysis, stroke, and , as well treatment alternatives were answered to satisfaction. After obtaining informed consent, denial of pertinent drug allergies, as well as being made aware of the potential risks of bleeding, infection, spinal cord trauma, paralysis, temporary and permanent nerve damage, seizure, stroke, and possible , the patient was brought to the fluoroscopy suite and positioned prone on the fluoroscopy table. The lumbar region was prepped in usual sterile fashion and covered with a fenestrated drape in the usual sterile fashion. Appropriate monitors applied including pulse oximeter, pulse, and blood pressure for regular monitoring throughout the procedure. After review of previous anaesthesic history and IV conscious sedation the patient was deemed safe to proceed with today's procedure with IV conscious sedation as ASA class II designation. Safety time-out was performed to confirm patient ID, procedure to be performed and site of procedure. IV sedation was accomplished with a combination of 4mg of Versed administered by the RN after DO order, titrated to patient comfort during the course of the procedure while the patient remained responsive to all verbal commands. After local infiltration using 1% lidocaine, under fluoroscopic guidance, a 10- cm RF insulated needle with a 10-mm active tip was positioned parallel to the junction of the right sacral ala and the superior articulating process where the S1 dorsal ramus resides. Needle placement was confirmed with motor stimulation of .5v on the right which produced local stimulation without radicular component. The stimulation was then increased to 2v with, once again, only local multifidus stimulation without radicular component. The needle was then removed and the identical procedure was performed along the length of the right L5 medial branch with motor stimulation at .7v on the right. The identical procedure was once again performed along the length of the right L4 medial branch with motor stimulation of .5v on the right. The medial branches were then anesthetised with 0.5% Marcaine. This was then followed by two discreet lesions performed at 80 degrees Celsius for 90 seconds each. The identical procedure was repeated on the left. The patient tolerated the procedure well without signs or symptoms of complications prior to transfer to the recovery area continued monitoring without incident. The patient was then transferred to the recovery area where they were observed for an appropriate period of time after the injection. The patient reported a VAS score of 9 prior to the procedure and a post-procedure VAS of 0. POST OP INSTRUCTIONS The patient was provided a Pain Log to continue to record the patient's response to the target-specific procedure prior to the patient's follow-up visit with the referring physician. Additionally, specific post-injection care instructions and a contact number to our office were provided if concerns arise regarding possible complications associated with the procedure are suspected.
== END 2023-11-04 09:20 | disposition home or self-care (01) ==
LOC: RAD 07:13
PROVIDERS: PCP Family Medicine; Referring Provider Physical Medicine & Rehabilitation; Visit Provider Physical Medicine & Rehabilitation
DX: M47.816 Spondylosis without myelopathy or radiculopathy, lumbar region (principal); M47.817 Spondylosis without myelopathy or radiculopathy, lumbosacral region
CPT/HCPCS: 64493; 64635; 64636; 99152; 99153; J2250; J3010

== ENCOUNTER 2024-04-20 14:41 | Outpatient (CLI) | payer MEDICARE, OTHER, SELFPAY ==
[2024-01-10 08:42] VITALS: BMI 33.3
[2024-04-20] VITALS (8 sets, daily range): BP systolic 110–175; BP diastolic 60–81; PULSE 61–66; RESP 13–22; TEMP 36.7; O2SAT 96–100
--- NOTE | 2024-04-20 16:05 | DI.RAD.S_ITS ---
PROCEDURE: PAIN L/S TRANSFORAMINAL INJECT INDICATIONS: Left L4/5 TFESI COMPARISON: [facility], RG, MRI L-SPINE W/O CONTRAST, 02/16/2022, 12:41. CR, XR LUMBAR SPINE MIN 4V, 11/06/2021, 11:12. FINDINGS: Fluoroscopic spot filming was performed to verify placement of spinal needles at the L4-L5 level(s), as labeled on the films. Appropriate location(s) of the needle tip(s) was confirmed by injection of iodinated contrast. IMPRESSION: Fluoroscopy for pain management. Dictated by: Yulia Tarango M.D. on 04/21/2024 at 9:29 Approved by: Yulia Tarango M.D. on 04/21/2024 at 9:48
[2024-04-20] MEDS: MIDAZOLAM 2 MG/2 ML VIAL IV (16:13)
[2024-04-20] MEDS: iopamidoL 15 ML VIAL 3 ML INJ (16:16)
[2024-04-20] MEDS: DEXAMETHASONE 10 MG/ML VIAL INJ (16:17)
[2024-04-20] MEDS: BETAMETHASONE 30 MG/5 ML MDV 6 MG INJ (16:17)
[2024-04-20] MEDS: BUPIVACAINE 0.25% (PF) VIAL 2 ML INJ (16:17)
--- NOTE | 2024-04-20 16:35 | P.PCN_ITS ---
Date/Time/Diagnoses Date of procedure: 04/20/24 Time of procedure: 16:35 Pre-procedure diagnosis: 1. FORAMINAL STENOSIS WITH LE SYMPTOMS Post-procedure diagnosis: same Procedure Notes Procedure: 1. FLUOROSCOPICALLY GUIDED CONTRAST CONTROLLED TRANSFORAMINAL EPIDURAL STEROID INJECTION - LEFT L4/5 Indications: Josselyn is referred by Dr. Felipe for treatment of Foraminal Stenosis with Left LE Symptoms Physician: Emigdio Castañeda Total Fluoroscopy time (seconds): 14 Total sedation minutes: 15 Complications: none Procedure in detail & Post-procedure care: FINDINGS Foraminal Nerve Root Compression secondary to disc disease and facet hypertrophy DESCRIPTION OF PROCEDURE Following review of allergy and review of potential side effects and complications, including, but not necessarily limited to, infection, allergic reaction, local tissue breakdown, stroke, temporary or permanent nerve injury, paralysis, and possible , the patient indicated that the patient understood and agreed to proceed. An informed consent document was signed by the patient, witnessed by a nurse, and placed in the patient's chart. Additionally, other treatment options including medications, modalities, and physical therapy were reviewed with the patient. After review of previous anaesthesic history and IV conscious sedation the patient was deemed safe to proceed with today?s procedure with IV conscious sedation as ASA class II designation. Safety time-out was performed to confirm patient ID, procedure to be performed and site of procedure. IV sedation was accomplished with a combination of 2mg of Versed administered by the RN after DO order, titrated to patient comfort during the course of the procedure while the patient remained responsive to all verbal commands In the prone position following sterile prep and drape of the lumbar region, the left L4/5 posterior neuroforamen was identified fluoroscopically. The skin was anesthetized via a 25-gauge 1.5-inch needle with 1% lidocaine solution. At this point, a 22-gauge 5-inch spinal needle was atraumatically introduced and advanced under fluoroscopic guidance through the posterior left L4/5 neuroforamen to approximately the anterior aspect of the canal. Depth was confirmed on lateral view. Following negative aspiration, injection of approximately 1.5 cc of Isovue 200 under live fluoroscopy in the AP view confirmed excellent flow along the nerve root, into the epidural space without vascular or intrathecal uptake observed Radiological data, including multiple fluoroscopic views of the lumbosacral spine, reveal a spinal needle at the left L4/5 posterior neuroforamen. Subsequent views show flow of contrast material flowing superiorly and inferiorly along the nerve root confirming epidural flow. Subsequently, a test dose of 1.5 cc of 1% lidocaine solution was administered and patient was observed for two minutes for signs or symptoms of complications, including abdominal pain, shortness of breath, bilateral upper or lower extremity weakness, nausea and vomiting, prior to steroid injection. At this point, a total of 2cc or 10mg of dexamethasone and 6mg of betamethasone was injected without incident. The procedure tolerated the procedure well without signs or symptoms of complications prior to transfer to the recovery area continued monitoring without incident. The patient was then transferred to the recovery area where they were observed for an appropriate time after the injection. The patient reported a VAS score of 7 prior to the procedure and a post- procedure VAS of 0. POST OP INSTRUCTIONS The patient was provided a Pain Log to continue to record their response to the target-specific procedure prior to follow-up visit with their referring physician. Additionally, specific post-injection care instructions and a contact number to our office were provided if concerns arise regarding possible complications associated with the procedure are suspected.
== END 2024-04-20 16:48 | disposition home or self-care (01) ==
PROVIDERS: PCP Family Medicine; Referring Provider Physical Medicine & Rehabilitation; Visit Provider Physical Medicine & Rehabilitation
DX: M48.061 Spinal stenosis, lumbar region without neurogenic claudication (principal); M51.16 Intervertebral disc disorders with radiculopathy, lumbar region; M47.26 Other spondylosis with radiculopathy, lumbar region
CPT/HCPCS: 64483; 99152; J0702; J1100; J2250; J3490

== ENCOUNTER → 2024-07-27 12:53 | Outpatient (CLI) | payer MEDICARE, OTHER, SELFPAY ==
[2024-01-10 08:42] VITALS: BMI 33.3
--- NOTE | 2024-07-27 12:55 | DI.RAD.S_ITS ---
PROCEDURE: XR LUMBAR SPINE MIN 4V INDICATIONS: BACK PAIN TECHNIQUE: 5 views of the lumbar spine were acquired, including bilateral oblique views.>> COMPARISON: [facility], CR, XR LUMBAR SPINE MIN 4V, 11/06/2021, 11:12. FINDINGS: Bones: 5 nonrib-bearing vertebrae are present. There is mild leftward curvature of lumbar spine with apex at L2-3 level. Loss of disc height, degenerative endplate changes and bilateral facet arthrosis throughout lumbar spine is seen more notably at L4-5 and L2-3 levels. No vertebral body compression fractures. No suspicious bony lesions. Soft tissues: Overlying bowel gas pattern is normal. No suspicious soft tissue calcifications. Oblique images: No pars defects. There is suggestion of bilateral bony foraminal stenosis at L2-3 and L4-5 levels. IMPRESSION: Moderate degenerative disc disease throughout lumbar spine with suggestion of bilateral bony foraminal stenosis at L2-3 and L4-5 level seen on oblique views. Mild leftward curvature of lumbar spine centered at L2-3 level. No acute compression fracture or significant spondylolisthesis. Dictated by: Hair Bray M.D. on 07/27/2024 at 13:55 Approved by: Hair Bray M.D. on 07/27/2024 at 13:56
== END ==
PROVIDERS: PCP Family Medicine; Referring Provider Physical Medicine & Rehabilitation; Visit Provider Physical Medicine & Rehabilitation
DX: M47.26 Other spondylosis with radiculopathy, lumbar region (principal); M51.16 Intervertebral disc disorders with radiculopathy, lumbar region; M43.9 Deforming dorsopathy, unspecified
CPT/HCPCS: 72110

== ENCOUNTER 2024-12-19 09:13 | Outpatient (CLI) | payer MEDICARE, OTHER, SELFPAY ==
[2024-01-10 08:42] VITALS: BMI 33.3
[2024-12-19] VITALS (8 sets, daily range): BP systolic 139–185; BP diastolic 59–74; PULSE 55–61; RESP 14–18; TEMP 36.5; O2SAT 97–100
--- NOTE | 2024-12-19 09:14 | DI.RAD.S_ITS ---
PROCEDURE: PAIN L/S TRANSFORAMINAL INJECT INDICATIONS: L4/5 TF MAURIZIO COMPARISON: [facility], , PAIN L/S TRANSFORAMINAL INJECT, 04/20/2024, 16:16. FINDINGS/IMPRESSION: Fluoroscopic spot filming was performed to verify placement of spinal needles at the L4-5 level(s), as labeled on the films. Appropriate location(s) of the needle tip(s) was confirmed by injection of iodinated contrast. Dictated by: Cipriano Lee M.D. on 12/19/2024 at 12:51 Approved by: Cipriano Lee M.D. on 12/19/2024 at 13:10
[2024-12-19] MEDS: MIDAZOLAM 2 MG/2 ML VIAL 1 MG IV (10:48)
[2024-12-19] MEDS: DEXAMETHASONE 10 MG/ML VIAL INJ (10:52)
[2024-12-19] MEDS: BETAMETHASONE 30 MG/5 ML MDV 12 MG INJ (10:52)
[2024-12-19] MEDS: iopamidoL 15 ML VIAL 3 ML INJ (10:52)
[2024-12-19] MEDS: BUPIVACAINE 0.25% (PF) VIAL 2 ML INJ (10:53)
--- NOTE | 2024-12-19 11:03 | P.PCN_ITS ---
Date/Time/Diagnoses Date of procedure: 12/19/24 Time of procedure: 11:03 Pre-procedure diagnosis: 1. FORAMINAL STENOSIS WITH LE SYMPTOMS Post-procedure diagnosis: same Procedure Notes Procedure: 1. FLUOROSCOPICALLY GUIDED CONTRAST CONTROLLED TRANSFORAMINAL EPIDURAL STEROID INJECTION - RIGHT L4/5 TFESI Indications: Josselyn is referred by Dr. Felipe for treatment of Foraminal Stenosis with Right LE Symptoms Physician: Emigdio Castañeda Total Fluoroscopy time (seconds): 9 Total sedation minutes: 11 Complications: none Procedure in detail & Post-procedure care: FINDINGS Foraminal Nerve Root Compression secondary to disc disease and facet hypertrophy DESCRIPTION OF PROCEDURE Following review of allergy and review of potential side effects and complications, including, but not necessarily limited to, infection, allergic reaction, local tissue breakdown, stroke, temporary or permanent nerve injury, paralysis, and possible , the patient indicated that the patient understood and agreed to proceed. An informed consent document was signed by the patient, witnessed by a nurse, and placed in the patient's chart. Additionally, other treatment options including medications, modalities, and physical therapy were reviewed with the patient. After review of previous anaesthesic history and IV conscious sedation the patient was deemed safe to proceed with today?s procedure with IV conscious sedation as ASA class II designation. Safety time-out was performed to confirm patient ID, procedure to be performed and site of procedure. IV sedation was accomplished with a combination of 1mg of Versed was administered by the RN after DO order, titrated to patient comfort during the course of the procedure while the patient remained responsive to all verbal commands In the prone position following sterile prep and drape of the lumbar region, the right L4/5 posterior neuroforamen was identified fluoroscopically. The skin was anesthetized via a 25-gauge 1.5-inch needle with 1% lidocaine solution. At this point, a 25-gauge 3.5-inch spinal needle was atraumatically introduced and advanced under fluoroscopic guidance through the posterior right L4/5 neuroforamen to approximately the anterior aspect of the canal. Depth was confirmed on lateral view. Following negative aspiration, injection of approximately 1.5cc of Isovue 200 under live fluoroscopy in the AP view conf irmed excellent flow along the nerve root, into the epidural space without vascular or intrathecal uptake observed Radiological data, including multiple fluoroscopic views of the lumbosacral spine, reveal a spinal needle at the right L4/5 posterior neuroforamen. Subsequent views show flow of contrast material flowing superiorly and inferiorly along the nerve root confirming epidural flow. Subsequently, a test dose of 1.5 cc of 1% lidocaine solution was administered and patient was observed for two minutes for signs or symptoms of complications, including abdominal pain, shortness of breath, bilateral upper or lower extremity weakness, nausea and vomiting, prior to steroid injection. At this point, a total of 3cc or 10mg of dexamethasone and 12mg of betamethasone was injected without incident. The procedure tolerated the procedure well without signs or symptoms of complications prior to transfer to the recovery area continued monitoring without incident. The patient was then transferred to the recovery area where they were observed for an appropriate time after the injection. The patient reported a VAS score of 7 prior to the procedure and a post- procedure VAS of 0. POST OP INSTRUCTIONS The patient was provided a Pain Log to continue to record their response to the target-specific procedure prior to follow-up visit with their referring p hysician. Additionally, specific post-injection care instructions and a contact number to our office were provided if concerns arise regarding possible complications associated with the procedure are suspected.
== END 2024-12-19 11:17 | disposition home or self-care (01) ==
LOC: RAD 09:14
PROVIDERS: PCP Family Medicine; Referring Provider Physical Medicine & Rehabilitation; Visit Provider Physical Medicine & Rehabilitation
DX: M48.061 Spinal stenosis, lumbar region without neurogenic claudication (principal); M51.16 Intervertebral disc disorders with radiculopathy, lumbar region; M47.26 Other spondylosis with radiculopathy, lumbar region
CPT/HCPCS: 64483; 99152; J0702; J1100; J2250; J3490

== ENCOUNTER → 2025-02-28 08:56 | Outpatient (CLI) | payer MEDICARE, OTHER, SELFPAY ==
[2024-01-10 08:42] VITALS: BMI 33.3
[2025-02-28 10:51] LABS: Add Manual Diff / Slide Review NO; Basophils Absolute Auto 0 /uL (0-100); Basophils Percent Auto 0.8 % (0-2); Eosinophils Absolute Auto 300 /uL (0-450); Eosinophils Percent Auto 6.3 % (2-4); Hemoglobin 11.2 g/dL (12.0-16.0); Lymphocytes Absolute Auto 2000 /uL (1100-4500); Lymphocytes Percent Auto 36.7 % (25-40); Mean Corpuscular HGB Conc 33.9 % (30-36); Mean Corpuscular Hemoglobin 32.5 PG (26-34); Mean Corpuscular Volume 95.7 fL (80-100); Monocytes Absolute Auto 400 /uL (0-900); Monocytes Percent Auto 7.6 % (3-14); Neutrophils Absolute Auto 2600 /uL (1500-7000); Neutrophils Percent Auto 48.6 % (50-75); Platelet Count 273 X10^3/uL (150-400); Red Blood Cell Count 3.44 X10^6/uL (4.0-5.2); Red Cell Distribution Width 13.6 % (11.6-14.8); White Blood Cell Count 5.4 X10^3/uL (4.5-11.0)
[2025-02-28 11:04] LABS: Alanine Aminotransferase 23 IU/L (<35); Albumin 4.3 g/dL (3.5-5.0); Albumin Globulin Ratio 1.6 (1.0-2.8); Alkaline Phosphatase 113 U/L (38-126); Aspartate Aminotransferase 23 IU/L (14-36); BUN Creatinine Ratio 20.4 (6-22); Bilirubin Total 0.8 mg/dL (0.2-1.3); Blood Urea Nitrogen 28 mg/dL (7-17); Calcium 9.4 mg/dL (8.4-10.2); Carbon Dioxide 23 mmol/L (22-32); Chloride 110 mmol/L (98-107); Cholesterol 146 mg/dL (140-199); Estimated Glomerular Filt Rate 42 mL/min (>60); Globulin 2.7 g/dL (1.7-4.1); Glucose 190 mg/dL (70-99); HDL Cholesterol 61 mg/dL (40-60); HEMOLYSIS < 15 (0-50); LDL Cholesterol Calculated 64 mg/dL (<100); Sodium 141 mmol/L (137-145); Triglycerides 105 mg/dL (35-150)
[2025-02-28 11:05] LABS: Potassium 5.5 mmol/L (3.4-5.1)
[2025-02-28 11:39] LABS: TSH w/ Reflex to FT4 2.22 uIU/mL (0.47-4.68)
== END ==
PROVIDERS: PCP Family Medicine; Referring Provider Family Medicine; Visit Provider Family Medicine
DX: I10 Essential (primary) hypertension (principal); E78.5 Hyperlipidemia, unspecified; E03.9 Hypothyroidism, unspecified; I73.9 Peripheral vascular disease, unspecified; Z95.5 Presence of coronary angioplasty implant and graft
CPT/HCPCS: 36415; 80053; 80061; 84443; 85025

== ENCOUNTER 2025-03-16 18:57 | Emergency (ER) | payer MEDICARE, OTHER, SELFPAY ==
[2024-01-10 08:42] VITALS: BMI 33.3
[2025-03-16] VITALS (7 sets, daily range): BP systolic 147–164; BP diastolic 68–96; PULSE 56–67; RESP 12–20; TEMP 36.1; O2SAT 91–100; BMI 32.5
--- NOTE | 2025-03-16 19:26 | PC.NURSE ---
Handoff given to Kacey BARRERA and Brittany BARRERA. pending EKG
[2025-03-16 19:38] LABS: Alanine Aminotransferase 26 IU/L (<35); Albumin 4.8 g/dL (3.5-5.0); Albumin Globulin Ratio 1.4 (1.0-2.8); Alkaline Phosphatase 140 U/L (38-126); Aspartate Aminotransferase 28 IU/L (14-36); BUN Creatinine Ratio 28.8 (6-22); Bilirubin Total 0.7 mg/dL (0.2-1.3); Blood Urea Nitrogen 36 mg/dL (7-17); Calcium 9.9 mg/dL (8.4-10.2); Carbon Dioxide 20 mmol/L (22-32); Chloride 107 mmol/L (98-107); Estimated Glomerular Filt Rate 46 mL/min (>60); Globulin 3.5 g/dL (1.7-4.1); Glucose 172 mg/dL (70-99); HEMOLYSIS < 15 (0-50); Lipase 87 U/L (23-300); Potassium 5.2 mmol/L (3.4-5.1); Sodium 138 mmol/L (137-145); Total Protein 8.3 g/dL (6.3-8.2)
[2025-03-16 19:43] LABS: Add Manual Diff / Slide Review NO; Basophils Absolute Auto 100 /uL (0-100); Basophils Percent Auto 0.7 % (0-2); Eosinophils Absolute Auto 100 /uL (0-450); Eosinophils Percent Auto 1.2 % (2-4); Hematocrit 33.7 % (36-46); Hemoglobin 11.5 g/dL (12.0-16.0); Lymphocytes Absolute Auto 2100 /uL (1100-4500); Mean Corpuscular HGB Conc 34.1 % (30-36); Mean Corpuscular Hemoglobin 32.2 PG (26-34); Mean Corpuscular Volume 94.3 fL (80-100); Monocytes Absolute Auto 500 /uL (0-900); Monocytes Percent Auto 4.9 % (3-14); Neutrophils Absolute Auto 6700 /uL (1500-7000); Neutrophils Percent Auto 71.2 % (50-75); Platelet Count 296 X10^3/uL (150-400); Red Blood Cell Count 3.57 X10^6/uL (4.0-5.2); Red Cell Distribution Width 13.5 % (11.6-14.8); White Blood Cell Count 9.5 X10^3/uL (4.5-11.0)
[2025-03-16] MEDS: ONDANSETRON 4 MG/2 ML INJ IV (20:07)
--- NOTE | 2025-03-16 20:19 | EKG_ITS ---
[address] [address] Test Date: 2025-03-16 Pat Name: Josselyn Casillas Department: 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
--- NOTE | 2025-03-16 20:32 | ED.ABDPAIN ---
HPI - Abdominal Pain General Chief Complaint: Abdominal Pain Stated Complaint: abd px Time Seen by Provider: 03/16/25 20:32 History of Present Illness HPI narrative: 69-year-old female history of hypertension, CAD s/p stent placement, factor 5 Leiden mutation, had recent treadmill stress test 2 weeks ago presents today with abdominal pain that she localizes to the epigastric region nonradiating associated with dry heaving. She has had a normal bowel movement today denies constipation, diarrhea, blood in the stool or urine or back pain. Denies chest pain shortness of breath cough or UTI symptoms. other than what is stated 14 point review of system is negative Related Data Home Medications Medication Instructions Recorded Confirmed flaxseed oil 1,000 mg capsule 1,000 mg PO BID 04/04/18 03/16/25 metoprolol tartrate 50 mg tablet 50 mg PO BID 02/02/22 03/16/25 isosorbide mononitrate 30 mg 30 mg PO DAILY 09/27/23 03/16/25 tablet,extended release 24 hr ezetimibe 10 mg tablet 10 mg PO DAILY 03/29/24 03/16/25 Previous Rx's Medication Instructions Recorded aspirin 81 mg tablet,delayed 81 mg PO QDAY #30 tabs 09/03/17 release montelukast 10 mg tablet See Rx Instructions .Route 06/16/22 .COMPLEX #90 tabs omeprazole 20 mg capsule,delayed 20 mg PO DAILY #90 caps 07/31/24 release hydrochlorothiazide 25 mg tablet 25 mg PO DAILY #90 tabs 08/08/24 atorvastatin 40 mg tablet 40 mg PO ONCE PM #90 tabs 01/24/25 losartan 50 mg tablet 50 mg PO DAILY #90 tabs 01/24/25 celecoxib 200 mg capsule (Celebrex) 200 mg PO DAILY #90 caps 02/21/25 gabapentin 300 mg capsule 300 mg PO .COMPLEX #90 caps 02/21/25 levothyroxine 50 mcg tablet 50 mcg PO QAM #90 tabs 03/12/25 duloxetine 30 mg capsule,delayed 60 mg (2 x 30 mg) PO DAILY #60 caps 03/13/25 release (Cymbalta) ondansetron HCl 4 mg tablet 4 mg PO Q8H PRN nausea and 03/16/25 vomiting #30 tabs Allergies Allergy/AdvReac Type Severity Reaction Status Date / Time meperidine [MEPERIDINE] Allergy Severe ANAPHYLAXIS Verified 02/26/25 08:58 acetaminophen [From Percocet] AdvReac Intermediate Vomiting Verified 02/26/25 08:58 codeine [CODEINE] AdvReac Intermediate EMESIS,H.A. Verified 02/26/25 08:58 hydrocodone [HYDROCODONE] AdvReac Intermediate EMESIS,H.A. Verified 02/26/25 08:58 oxycodone [From Percocet] AdvReac Intermediate Vomiting Verified 02/26/25 08:58 diphenhydramine AdvReac Mild INCR HR Verified 02/26/25 08:58 antihistamine Allergy Severe Severe BP Uncoded 02/26/25 08:58 increase, full body hives, trip to ER Review of Systems Review of Systems ROS Unobtainable: All systems reviewed & are unremarkable except as noted in HPI and below Patient History Medical History Acquired hypothyroidism (11/19/16) Ankle pain Anxiety and depression Anxiety disorder (05/01/15) Coronary artery disease involving [place] coronary artery of [place] heart without angina pectoris Cough Dysthymia Elevated platelet count Essential hypertension Facet arthropathy, lumbar Foot pain GERD with apnea Herniated nucleus pulposus, L1-2 Heterozygous factor V Leiden mutation (11/03/17) History of COPD Hyperlipidemia Left hip pain Left knee DJD Low grade fever Lumbar radiculopathy Migraines Myocardial infarction (08/28/17) Pneumonia due to COVID-19 virus Post covid-19 condition, unspecified Shortness of breath Thrombocytopenia Surgical History S/P BSO (bilateral salpingo-oophorectomy) (10/03/18) S/P laparoscopic assisted vaginal hysterectomy (LAVH) (~10/03/18) Social History marital status: household members: spouse Smoking Status: Former smoker alcohol intake: current substance use type: does not use Smoking Status: Former smoker alcohol intake frequency: holidays/special occasions only Exam Narrative Exam Narrative: GENERAL: [69] year old patient appears stated age. Well-developed patient, in mild distress. HEAD: Atraumatic. Normocephalic. EYES: Pupils equal round and reactive. Extraocular motions intact. No scleral icterus. No injection or drainage. ENT: Nose without bleeding, purulent drainage. Throat without erythema, tonsillar hypertrophy or exudate. Airway patent. NECK: Trachea midline. Non tender CARDIOVASCULAR: Regular rate and rhythm without murmurs, gallops, or rubs. RESPIRATORY: Clear to auscultation. Breath sounds equal bilaterally. No wheezes, rales, or rhonchi. GASTROINTESTINAL: Abdomen soft, non-tender, nondistended. EXTREMITIES: No edema or joint tenderness. BACK: Nontender without deformity or crepitance. No flank tenderness. NEURO: AOx3. SKIN: No rash or erythema of visible areas Initial Vital Signs Initial Vital Signs: Vital Signs Temperature 97 F L 03/16/25 19:02 Pulse Rate 67 03/16/25 19:02 Respiratory Rate 16 03/16/25 19:02 Blood Pressure 161/96 H 03/16/25 19:02 Pulse Oximetry 99 03/16/25 19:02 Oxygen Delivery Method Room Air 03/16/25 19:02 Course Orders Ordered: ED Orders 03/16/25 19:10 EKG-12 Lead Stat 03/16/25 19:17 Complete Blood Count AUTO DIFF Stat Comprehensive Metabolic Panel Stat Lipase Stat 03/16/25 20:41 CT abdomen pelvis w con Stat Ondansetron HCl (Ondansetron 4 Mg/2 Ml Inj) 4 mg IV NOW PRN PRN Reason: Nausea And Vomiting Last Admin: 03/16/25 20:07 Dose: 4 mg Documented By: YANNA Ondansetron HCl (Ondansetron 4 Mg Odt) 4 mg PO NOW PRN PRN Reason: Nausea And Vomiting Discontinued Medications Diazepam (Diazepam 10 Mg/2 Ml Syringe) 5 mg IV NOW ONE Stop: 03/16/25 20:55 Last Admin: 03/16/25 20:59 Dose: 5 mg Documented By: Lactated Ringer's (Lactated Ringers) 1,000 mls @ 1,000 mls/hr IV BOLUS ONE Stop: 03/16/25 21:41 Last Admin: 03/16/25 20:59 Dose: 1,000 mls/hr Documented By: Ketorolac Tromethamine (Ketorolac 30 Mg/Ml Vial) 15 mg IV NOW ONE Stop: 03/16/25 20:43 Last Admin: 03/16/25 20:59 Dose: 15 mg Documented By: Lorazepam (Lorazepam 2 Mg/Ml Inj) 2 mg IV NOW ONE Stop: 03/16/25 20:50 Last Admin: 03/16/25 20:54 Dose: Not Given Documented By: AB Vital Signs Vital signs: Vital Signs - 8 hr 03/16/25 19:02 03/16/25 20:25 03/16/25 20:30 Temperature 97 F L Pulse Rate 67 56 L Respiratory Rate 16 12 Blood Pressure 161/96 H 147/68 H Pulse Oximetry 99 100 Oxygen Delivery Method Room Air 03/16/25 20:30 03/16/25 21:00 Temperature Pulse Rate 58 L 62 Respiratory Rate 13 20 Blood Pressure Pulse Oximetry 100 91 Oxygen Delivery Method Room Air MDM - Abdominal Pain Lab Data 03/16/25 19:17 03/16/25 19:17 Labs: Lab Results 03/16/25 Range/Units 19:17 WBC 9.5 (4.5-11.0) X10^3/uL RBC 3.57 L (4.0-5.2) X10^6/uL Hgb 11.5 L (12.0-16.0) g/dL Hct 33.7 L (36-46) % MCV 94.3 (80-100) fL MCH 32.2 (26-34) PG MCHC 34.1 (30-36) % RDW 13.5 (11.6-14.8) % Plt Count 296 (150-400) X10^3/uL Neut % (Auto) 71.2 (50-75) % Lymph % (Auto) 22.0 L (25-40) % Bond % (Auto) 4.9 (3-14) % Eos % (Auto) 1.2 L (2-4) % Baso % (Auto) 0.7 (0-2) % Neut # (Auto) 6700 (9594-6822) /uL Lymph # (Auto) 2100 (8108-3027) /uL Bond # (Auto) 500 (0-900) /uL Eos # (Auto) 100 (0-450) /uL Baso # (Auto) 100 (0-100) /uL Sodium 138 (137-145) mmol/L Potassium 5.2 H (3.4-5.1) mmol/L Chloride 107 (98-107) mmol/L Carbon Dioxide 20 L (22-32) mmol/L BUN 36 H (7-17) mg/dL Creatinine 1.25 H (0.52-1.04) mg/dL Estimated GFR 46 L (>60) mL/min BUN/Creatinine Ratio 28.8 H (6-22) Glucose 172 H (70-99) mg/dL Calcium 9.9 (8.4-10.2) mg/dL Total Bilirubin 0.7 (0.2-1.3) mg/dL AST 28 (14-36) IU/L ALT 26 (<35) IU/L Alkaline Phosphatase 140 H (38-126) U/L Total Protein 8.3 H (6.3-8.2) g/dL Albumin 4.8 (3.5-5.0) g/dL Globulin 3.5 (1.7-4.1) g/dL Albumin/Globulin Ratio 1.4 (1.0-2.8) Lipase 87 (23-300) U/L Imaging Data CT scan - abdomen/pelvis: Radiologist's Impression: [place] [address] CT Scan Report Signed Patient: Josselyn Casillas MR#: [id number] : 1955 Acct:[id number] Age/Sex: 69 / F Date of Service: 03/16/25 Loc: ED Accession Number: [id number] Procedure: CT abdomen pelvis w con Ordering Provider: Ari Trotter D.O. PROCEDURE: CT ABDOMEN PELVIS W CON INDICATIONS: abd pain/nausea TECHNIQUE: After the administration of intravenous contrast, axial sections acquired from the lung bases to the pubic symphysis. Coronal and sagittal reformats were performed. For radiation dose reduction, the following was used: automated exposure control, adjustment of mA and/or kV according to patient size. COMPARISON: None. FINDINGS: Image quality: Diagnostic. Lower Chest: No significant findings. ABDOMEN: Liver: No solid mass. Hepatic steatosis is seen. Gallbladder: Small stone in dependent portion of gallbladder lumen is seen. No gallbladder wall thickening. Biliary ducts: No biliary dilation. Pancreas: No ductal dilation. Spleen: Size is within normal limits. Adrenal Glands: No adrenal nodules. Kidneys and Ureters: No hydronephrosis. No solid mass. No complex renal cystic lesion which requires follow up. Stomach and Bowel: There is no bowel obstruction. No gastric or small bowel wall thickening. Appendix is visualized and is within normal limits. Colonic diverticulosis without CT evidence of acute diverticulitis. There is mild diffuse colonic wall thickening. No abscess collection. Peritoneum: No abnormal intraperitoneal fluid. No free air. Ventral Wall: No significant ventral hernia. Abdominal Nodes: No retroperitoneal or mesenteric adenopathy by size criteria. Vessels: Aorta and inferior vena cava are normal in size. PELVIS: Pelvic Organs: Unremarkable. Bladder: No bladder wall thickening, accounting for underdistention. Pelvic Nodes: No enlarged lymph nodes. Miscellaneous: No inguinal hernias are seen. Bones: No aggressive osseous abnormality. No acute vertebral body compression fractures. IMPRESSION: 1. Finding is concerning for low-grade colitis. No bowel obstruction . No evidence of acute appendicitis or diverticulitis. No free fluid or free air. 2. Cholelithiasis without CT evidence of acute cholecystitis. Hepatic steatosis. Dictated by: Hair Bray M.D. on 03/16/2025 at 21:32 Approved by: Hair Bray M.D. on 03/16/2025 at 21:34 ECG Data Interpretation: Sinus Keith HR 57 AR 154 QRS [address]-t wave change Unchanged from 02/26/25 [facility] Narrative Medical decision making narrative: all lab work vital signs nurse triage note medication list CT scan all reviewed. Patient given Valium 5 mg IV x1 Toradol Zofran and 1 L bolus of LR. CT scan showed low-grade colitis no bowel obstruction no evidence of acute appendicitis or diverticulitis no free air or free fluid and also gallstones without evidence of cholecystitis. Differential diagnosis includes cholecystitis, pancreatitis, diverticulitis, UTI, kidney stone, kidney infection. Clear liquid diet advance as tolerated. DC home on Zofran prescription Discharge Plan Departure Patient Disposition: Home Clinical Impression: Colitis Gallstone Qualifiers: Cholecystitis presence: without cholecystitis Biliary obstruction: without biliary obstruction Qualified Code(s): K80.20 - Calculus of gallbladder without cholecystitis without obstruction Instructions: DI for Colitis Activity Restrictions/Additional Instructions: Return with new or worsening symptoms. Follow up with PCP in 1-2 weeks. Clear liquid diet advance as tolerated. Take medicines as directed Prescriptions: New ondansetron HCl 4 mg tablet 4 mg PO Q8H PRN (Reason: nausea and vomiting) Qty: 30 0RF No Action aspirin 81 MG tablet,delayed release (DR/EC) 81 mg PO QDAY Qty: 30 0RF montelukast 10 mg tablet See Rx Instructions .ROUTE .COMPLEX Qty: 90 1RF Dose Instruction: TAKE ONE TABLET BY MOUTH DAILY Rx Instructions: TAKE ONE TABLET BY MOUTH DAILY omeprazole 20 mg capsule,delayed release(DR/EC) 20 mg PO DAILY Qty: 90 3RF hydrochlorothiazide 25 mg tablet 25 mg PO DAILY Qty: 90 3RF losartan 50 mg tablet 50 mg PO DAILY Qty: 90 3RF atorvastatin 40 mg tablet 40 mg PO ONCE PM Qty: 90 3RF levothyroxine 50 mcg tablet 50 mcg PO QAM Qty: 90 3RF duloxetine [Cymbalta] 30 mg capsule,delayed release(DR/EC) 60 mg PO DAILY MDD 2 Qty: 60 3RF flaxseed oil 1,000 mg capsule 1,000 mg PO BID isosorbide mononitrate 30 mg tablet extended release 24 hr 30 mg PO DAILY celecoxib [Celebrex] 200 mg capsule 200 mg PO DAILY Qty: 90 2RF gabapentin 300 mg capsule 300 mg PO .COMPLEX Qty: 90 2RF Rx Instructions: 1-2 PO Tid to begin at HS and titrate to pain relief metoprolol tartrate 50 mg tablet 50 mg PO BID ezetimibe 10 mg tablet 10 mg PO DAILY Referrals: Robert Felipe MD [Primary Care Provider] - Stand Alone Forms: Patient Portal/API/Survey
--- NOTE | 2025-03-16 20:41 | DI.CT.S_ITS ---
PROCEDURE: CT ABDOMEN PELVIS W CON INDICATIONS: abd pain/nausea TECHNIQUE: After the administration of intravenous contrast, axial sections acquired from the lung bases to the pubic symphysis. Coronal and sagittal reformats were performed. For radiation dose reduction, the following was used: automated exposure control, adjustment of mA and/or kV according to patient size. COMPARISON: None. FINDINGS: Image quality: Diagnostic. Lower Chest: No significant findings. ABDOMEN: Liver: No solid mass. Hepatic steatosis is seen. Gallbladder: Small stone in dependent portion of gallbladder lumen is seen. No gallbladder wall thickening. Biliary ducts: No biliary dilation. Pancreas: No ductal dilation. Spleen: Size is within normal limits. Adrenal Glands: No adrenal nodules. Kidneys and Ureters: No hydronephrosis. No solid mass. No complex renal cystic lesion which requires follow up. Stomach and Bowel: There is no bowel obstruction. No gastric or small bowel wall thickening. Appendix is visualized and is within normal limits. Colonic diverticulosis without CT evidence of acute diverticulitis. There is mild diffuse colonic wall thickening. No abscess collection. Peritoneum: No abnormal intraperitoneal fluid. No free air. Ventral Wall: No significant ventral hernia. Abdominal Nodes: No retroperitoneal or mesenteric adenopathy by size criteria. Vessels: Aorta and inferior vena cava are normal in size. PELVIS: Pelvic Organs: Unremarkable. Bladder: No bladder wall thickening, accounting for underdistention. Pelvic Nodes: No enlarged lymph nodes. Miscellaneous: No inguinal hernias are seen. Bones: No aggressive osseous abnormality. No acute vertebral body compression fractures. IMPRESSION: 1. Finding is concerning for low-grade colitis. No bowel obstruction . No evidence of acute appendicitis or diverticulitis. No free fluid or free air. 2. Cholelithiasis without CT evidence of acute cholecystitis. Hepatic steatosis. Dictated by: Hair Bray M.D. on 03/16/2025 at 21:32 Approved by: Hair Bray M.D. on 03/16/2025 at 21:34
[2025-03-16] MEDS: KETOROLAC 30 MG/ML VIAL 15 MG IV (20:59)
[2025-03-16] MEDS: LACTATED RINGERS 1,000 ML 1000 ML IV (20:59)
[2025-03-16] MEDS: diazePAM 10 MG/2 ML SYRINGE 5 MG IV (20:59)
--- NOTE | 2025-03-16 21:16 | PC.NURSE ---
Pt desats to 72% on RA. Placed on 6L simple mask. Dr Trotter notified.
[2025-03-16] MEDS: ONDANSETRON 4 MG ODT PREPACK 1 BOTTLE MISC (22:40)
== END 2025-03-16 22:43 | disposition home or self-care (01) ==
PROVIDERS: Emergency Provider Family Medicine; PCP Family Medicine
DX: K52.9 Noninfective gastroenteritis and colitis, unspecified (principal); K80.20 Calculus of gallbladder without cholecystitis without obstruction
CPT/HCPCS: 74177; 80053; 83690; 85025; 93005; 96361; 96374; 96375; 99283; 99284; J1885; J2405; J3360; Q9967

== ENCOUNTER 2025-05-16 10:45 | Day surgery (SDC) | payer MEDICARE, OTHER, SELFPAY ==
[2024-01-10 08:42] VITALS: BMI 33.3
[2025-05-11 09:48] VITALS: BMI 31.9
[2025-05-16] VITALS (10 sets, daily range): BP systolic 114–173; BP diastolic 65–97; PULSE 58–73; RESP 9–25; TEMP 36.1–36.6; O2SAT 95–98; BMI 32.1
--- NOTE | 2025-05-16 | PATH_ITS ---
[facility] Accession Number: [id number] No. of containers..01 Tissue . 01 Material submitted: . gallbladder - GALLBLADDER . 01 Diagnosis: GALLBLADDER, CHOLECYSTECTOMY: Cholelithiasis. No evidence of neoplasm. MRV 05/21/2025 1258 Local . 01 Electronically signed: . Benjamín Pelaez MD, PhD, Pathologist NPI- [id number] . 01 Gross description: . Received in formalin with two identifiers and gallbladder, is a disrupted gallbladder, 7.2 x 3.4 x 1.2 cm with a full-thickness defect in the neck, 0.6 cm in greatest dimension. The remaining external surface is unremarkable. The cystic duct margin is inked blue, and no pericystic lymph node is identified. The lumen contains several black, roughened calculi, up to 0.3 cm in greatest dimension admixed with dark green viscous bile. The mucosa is green-everett and velvety with no yellow discoloration, polyps, or lesions identified. The anders average 0.3 cm thick. Account Support Manager sections to include the cystic duct margin and full-thickness sections are submitted in A1. ([id number]) /MRV 05/17/2025 1949 Local . 01 Pathologist provided ICD-10: K80.20 . 01 CPT . 840779 Specimen Comment: A courtesy copy of this report has been sent to [phone] Performed at: [address] [id number] MD Rajesh Lewis MD Phone: [phone]
[2025-05-16] MEDS: LACTATED RINGERS 1,000 ML 84 ML IV ×2 (11:51→14:50)
--- NOTE | 2025-05-16 13:41 | PM.HP.IH.1 ---
History of Present Illness History of Present Illness Date Patient Seen: 05/16/25 Time Patient Seen: 13:41 Chief complaint: Robotic lap cara Narrative: Josselyn is a 70-year-old woman with symptomatic cholelithiasis. See the office note from April for details. [facility] Medical History Acquired hypothyroidism (11/19/16) Ankle pain Anxiety and depression Anxiety disorder (05/01/15) Coronary artery disease involving [place] coronary artery of [place] heart without angina pectoris Cough Dysthymia Elevated platelet count Essential hypertension Facet arthropathy, lumbar Foot pain GERD with apnea Herniated nucleus pulposus, L1-2 Heterozygous factor V Leiden mutation (11/03/17) History of COPD Hyperlipidemia Left hip pain Left knee DJD Low grade fever Lumbar radiculopathy Migraines Myocardial infarction (08/28/17) Pneumonia due to COVID-19 virus Post covid-19 condition, unspecified Shortness of breath Thrombocytopenia Surgical History S/P BSO (bilateral salpingo-oophorectomy) (10/03/18) S/P laparoscopic assisted vaginal hysterectomy (LAVH) (~10/03/18) Social History (Updated 04/10/25 @ 15:59 by Paul Neff MA) marital status: household members: spouse, family and children Smoking Status: Former smoker alcohol intake: current substance use type: does not use Meds Home Medications and Allergies Home Medications ?Medication ?Instructions ?Recorded ?Confirmed ?Type aspirin 81 mg tablet,delayed 81 mg PO QDAY #30 tabs 09/03/17 05/16/25 Rx release flaxseed oil 1,000 mg capsule 1,000 mg PO BID 04/04/18 05/16/25 History metoprolol tartrate 50 mg tablet 50 mg PO BID 02/02/22 05/16/25 History montelukast 10 mg tablet See Rx Instructions .Route 06/16/22 05/16/25 Rx .COMPLEX #90 tabs isosorbide mononitrate 30 mg 30 mg PO DAILY 09/27/23 05/16/25 History tablet,extended release 24 hr ezetimibe 10 mg tablet 10 mg PO DAILY 03/29/24 05/16/25 History omeprazole 20 mg capsule,delayed 20 mg PO DAILY #90 caps 07/31/24 05/16/25 Rx release hydrochlorothiazide 25 mg tablet 25 mg PO DAILY #90 tabs 08/08/24 05/16/25 Rx atorvastatin 40 mg tablet 40 mg PO ONCE PM #90 tabs 01/24/25 05/16/25 Rx losartan 50 mg tablet 50 mg PO DAILY #90 tabs 01/24/25 05/16/25 Rx celecoxib 200 mg capsule (Celebrex) 200 mg PO DAILY #90 caps 02/21/25 05/16/25 Rx gabapentin 300 mg capsule 300 mg PO .COMPLEX #90 caps 02/21/25 05/16/25 Rx levothyroxine 50 mcg tablet 50 mcg PO QAM #90 tabs 03/12/25 05/16/25 Rx duloxetine 30 mg capsule,delayed 60 mg (2 x 30 mg) PO DAILY #60 caps 03/13/25 05/16/25 Rx release (Cymbalta) Disabled Parking Permit See Rx Instructions .Route 03/22/25 04/10/25 Rx .COMPLEX #1 ea Allergies Allergy/AdvReac Type Severity Reaction Status Date / Time meperidine (MEPERIDINE) Allergy Severe ANAPHYLAXIS Verified 05/16/25 11:53 codeine (CODEINE) AdvReac Intermediate EMESIS,H.A. Verified 05/16/25 11:53 hydrocodone (HYDROCODONE) AdvReac Intermediate EMESIS,H.A. Verified 05/16/25 11:53 oxycodone (From Percocet) AdvReac Intermediate Vomiting Verified 05/16/25 11:53 diphenhydramine AdvReac Mild INCR HR Verified 05/16/25 11:53 antihistamine Allergy Severe Severe BP Uncoded 05/16/25 11:53 increase, full body hives, trip to ER Exam Vital Signs (past 8 hours): - 05/16/25 11:22 Temperature 97.8 F Pulse Rate 71 Respiratory Rate 18 Blood Pressure 114/70 Pulse Oximetry 96 Oxygen Delivery Method Room Air Oxygen Delivery Method Room Air Const General: No acute distress Resp Effort & Inspection: normal respiratory effort Assessment & Plan Assessment and plan (1) Symptomatic cholelithiasis: Status: Acute Plan 70-year-old woman with a symptomatic cholelithiasis. Proceed with robotic cholecystectomy. Time-Based Coding :: [TOTAL MINUTES] spent with patient and on the chart (including review of chart, obtaining history, exam, reviewing outside data, placing orders, documenting exam and treatment plan, and counseling patient) on [DATE]. PROFEE Fur Farmer Document charge(s): No
[2025-05-16] MEDS: INDOCYANINE GREEN 25 MG VIAL IV (13:54)
[2025-05-16] MEDS: CEFAZOLIN 2 GM/100 ML PREMIX 100 ML IV (14:12)
--- NOTE | 2025-05-16 14:49 | SUR.OPER ---
Supine on padded OR bed, head on pillow, safety belt at thigh, both arms padded and tucked at side. Right arm secured on padded arm board <90 degrees abduction. Legs uncrossed. Padded footboard in place. Tape over blanket to secure lower legs.
[2025-05-16] MEDS: BUPIVACAINE 0.5% W/ EPI (PF) 30 ML VIAL INJ (14:58)
--- NOTE | 2025-05-16 15:41 | PM.OP.1 ---
Operative Date/Time/Diagnoses Date of procedure: 05/16/25 Time of procedure: 15:41 Pre-op diagnosis: Symptomatic cholelithiasis Post-op diagnosis: same Procedure & Clinicians Procedure: Robotic cholecystectomy Same procedure(s) as scheduled: Yes Surgeon: Kyler Golden Population Geneticist: Kasi Garcia Anesthesia Type: General Operative Notes Findings: Extensive intra-abdominal adhesions, enlarged liver Applied: none Estimated Blood Loss (mL): 25 Procedure in detail: The patient was given preoperative antibiotics. The patient was brought to the operating room, placed on the table in the supine position. General endotracheal anesthesia was induced. Both arms were tucked. The abdomen was prepped and draped. A time-out was performed. We made a 1 cm infraumbilical incision. We dissected down to the base of the umbilical stalk using cautery. We grasped the umbilical stalk with a Karis clamp to elevate the abdominal wall. We opened the fascia in the midline with cautery. We pierced the peritoneum with a Peon clamp. The 12 mm port was placed and the abdomen was insufflated to 15 mmHg. The endoscope was inserted. There was no evidence of any injury from the entry. Next, we placed 8 mm ports, one to the right of the camera port and two to the left of the camera port. The patient was then positioned in 17? of reverse Trendelenburg and the table was tilted slightly to the left. The robot was brought in from the patient's left side and docked. A fenestrated bipolar was placed through arm 1, the hook cautery through arm 3 and the ProGrasp through arm 4. There were extensive adhesions of omentum to the anterior abdominal wall. These were taken down under direct vision with the hook cautery. There were also adhesions of the dome of the right lobe of the liver to the anterior abdominal wall and diaphragm and these were partially taken down to allow cephalad retraction of the gallbladder. The gallbladder was grasped at the dome with the ProGrasp and retracted cephalad. The gallbladder was dissected around the infundibulum to allow mobilization. We then dissected the cystic structures with hook cautery. We obtained a critical view. There was no defined cystic artery but rather just small branches which were cauterized. The cystic duct was isolated. Firefly was used to visualize the cystic duct entering the common duct. The cystic duct was clipped twice proximally and once distally. In the process of dividing between the two proximal and one distal clip using cut function with the hook the cystic duct actually avulsed between the to proximal ducts. The one remaining cystic duct clip remained in good position with no evidence of bile leak. There were a few small stones that spilled from the cystic duct where it was being divided. The gallbladder was then dissected off the liver and placed in a specimen retrieval bag. Some bile had spilled from the gallbladder and was suctioned out of the right upper quadrant. We took one last look at the area around the cystic duct stump and no bile leak was noted. We then removed the 8 mm ports under direct vision we removed the 12 mm port. We then injected some local into the fascia and closed the fascia at the infraumbilical incision with 3 interrupted 0 Vicryl sutures. The skin incisions were closed with 4 Monocryl and Steri-Strips were applied. Band-Aids were applied over the Steri-Strips. Specimen: Gallbladder and contents Kasi CLAUDIO provided assistance with exposure, retraction and closure of incisions. Complications: none Post-operative Condition: stable Disposition: PACU
[2025-05-16] MEDS: ACETAMINOPHEN IV 1,000 MG/100 ML VIAL 400 MG IV (16:37)
== END 2025-05-16 17:25 | disposition home or self-care (01) ==
PROVIDERS: PCP Family Medicine; Referring Provider Surgery; Visit Provider Surgery
PROC: 0FT44ZZ Resection of Gallbladder, Percutaneous Endoscopic Approach (ICD-10-PCS; CPT 47562; principal; 2025-05-16 12:15)
DX: K80.20 Calculus of gallbladder without cholecystitis without obstruction (principal); Z87.891 Personal history of nicotine dependence
CPT/HCPCS: 47562; S2900; J0131; J0330; J0690; J1100; J2405; J2704; J3010

== ENCOUNTER 2025-06-07 13:16 | Emergency (ER) | payer MEDICARE, OTHER, SELFPAY ==
[2024-01-10 08:42] VITALS: BMI 33.3
[2025-06-07] VITALS (18 sets, daily range): BP systolic 133–207; BP diastolic 65–104; PULSE 60–82; RESP 9–25; TEMP 36.7; O2SAT 91–100; BMI 31.2
--- NOTE | 2025-06-07 13:42 | ED_ITS ---
HPI - Abdominal Pain <Ari Trotter, DO - Last Filed: 06/08/25 06:58> General Chief Complaint: Abdominal Pain Stated Complaint: feels sick, gallbladder taken out dizzy Time Seen by Provider: 06/07/25 13:32 History of Present Illness HPI narrative: 70-year-old female history of hypertension, CAD status post stent, factor 5 Leiden mutation, recent cholecystectomy, approximately 6 weeks ago presents with nausea, vomiting, diarrhea, and periumbilical pain after eating for plums yesterday. This reminded her of her gallbladder attack when she had her gallbladder removed. She denies chest pain, fever, chills, back pain, constipation, urinary complaint, cough, shortness of breath. Other than what is stated 14 point review system is negative Related Data Home Medications ?Medication ?Instructions ?Recorded ?Confirmed flaxseed oil 1,000 mg capsule 1,000 mg PO BID 04/04/18 05/16/25 metoprolol tartrate 50 mg tablet 50 mg PO BID 02/02/22 05/16/25 isosorbide mononitrate 30 mg 30 mg PO DAILY 09/27/23 0 05/16/25 tablet,extended release 24 hr ezetimibe 10 mg tablet 10 mg PO DAILY 03/29/2405/01 Previous Rx's ?Medication ?Instructions ?Recorded aspirin 81 mg tablet,delayed 81 mg PO QDAY #30 tabs release montelukast 10 mg tablet See Rx Instructions .Route 0 06/16/22 .COMPLEX #90 tabs omeprazole 20 mg capsule,delayed 20 mg PO DAILY #90 ca ps 07/31/24 release hydrochlorothiazide 25 mg tablet 25 mg PO DAILY #90 ta bs 08/08/24 atorvastatin 40 mg tablet 40 mg PO ONCE PM #90 tabs losartan 50 mg tablet 50 mg PO DAILY #90 tabs 12/31 04/25 celecoxib 200 mg capsule (Celebrex) 200 mg PO DAILY #9 0 caps 02/21/25 gabapentin 300 mg capsule 300 mg PO .COMPLEX #90 caps 02/21/25 levothyroxine 50 mcg tablet 50 mcg PO QAM #90 tabs 10/25 duloxetine 30 mg capsule,delayed 60 mg (2 x 30 mg) PO DAILY #60 caps 03/13/25 release (Cymbalta) Disabled Parking Permit See Rx Instructions .Route 0 03/22/25 .COMPLEX #1 ea Allergies Allergy/AdvReac Type Severity Reaction Status Date / Time meperidine (MEPERIDINE) Allergy Severe ANAPHYLAXIS Verified 06/07/25 14:01 codeine (CODEINE) AdvReac Intermediate EMESIS,H.A. Verified 06/07/25 14:01 hydrocodone (HYDROCODONE) AdvReac Intermediate EMESIS,H.A. Verified 06/07/25 14:01 oxycodone (From Percocet) AdvReac Intermediate Vomiting Verified 06/07/25 14:01 diphenhydramine AdvReac Mild INCR HR Verified 06/07/25 14:01 antihistamine Allergy Severe Severe BP Uncoded 05/16/25 11:53 increase, full body hives, trip to ER Review of Systems <Ari Trotter DO - Last Filed: 06/08/25 06:58> Review of Systems ROS Unobtainable: All systems reviewed & are unremarkable except as noted in HPI and below Patient History <Ari Trotter DO - Last Filed: 06/08/25 06:58> Medical History Acquired hypothyroidism (11/19/16) Ankle pain Anxiety and depression Anxiety disorder (05/01/15) Coronary artery disease involving [place] coronary artery of [place] heart without angina pectoris Cough Dysthymia Elevated platelet count Essential hypertension Facet arthropathy, lumbar Foot pain GERD with apnea Herniated nucleus pulposus, L1-2 Heterozygous factor V Leiden mutation (11/03/17) History of COPD Hyperlipidemia Left hip pain Left knee DJD Low grade fever Lumbar radiculopathy Migraines Myocardial infarction (08/28/17) Pneumonia due to COVID-19 virus Post covid-19 condition, unspecified Shortness of breath Thrombocytopenia Surgical History S/P BSO (bilateral salpingo-oophorectomy) (10/03/18) S/P laparoscopic assisted vaginal hysterectomy (LAVH) (~10/03/18) Social History (Updated 04/10/25 @ 15:59 by Paul Neff MA) marital status: household members: spouse, family and children alcohol intake: current substance use type: does not use alcohol intake frequency: holidays/special occasions only Exam <Ari Trotter DO - Last Filed: 06/08/25 06:58> Narrative Exam Narrative: GENERAL: [70] year old patient appears stated age. Well-developed patient, in mild distress. HEAD: Atraumatic. Normocephalic. EYES: Pupils equal round and reactive. Extraocular motions intact. No scleral icterus. No injection or drainage. ENT: Nose without bleeding, purulent drainage. Throat without erythema, tonsillar hypertrophy or exudate. Airway patent. NECK: Trachea midline. Non tender CARDIOVASCULAR: Regular rate and rhythm without murmurs, gallops, or rubs. RESPIRATORY: Clear to auscultation. Breath sounds equal bilaterally. No wheezes, rales, or rhonchi. GASTROINTESTINAL: Abdomen soft, non-tender, nondistended. EXTREMITIES: No edema or joint tenderness. BACK: Nontender without deformity or crepitance. No flank tenderness. NEURO: AOx3. SKIN: No rash or erythema of visible areas Initial Vital Signs Initial Vital Signs: Vital Signs Temperature 98.0 F 06/07/25 13:25 Pulse Rate 60 06/07/25 13:25 Respiratory Rate 20 06/07/25 13:25 Blood Pressure 177/87 H 06/07/25 13:25 Pulse Oximetry 100 06/07/25 13:25 Oxygen Delivery Method Room Air 06/07/25 13:25 <Bentley Wild MD - Last Filed: 06/08/25 01:00> Initial Vital Signs Initial Vital Signs: Vital Signs Temperature 98.0 F 06/07/25 13:25 Pulse Rate 60 06/07/25 13:25 Respiratory Rate 20 06/07/25 13:25 Blood Pressure 177/87 H 06/07/25 13:25 Pulse Oximetry 100 06/07/25 13:25 Oxygen Delivery Method Room Air 06/07/25 13:25 Course <Ari Trotter DO - Last Filed: 06/08/25 06:58> Orders Ordered: Discontinued Medications Diazepam (Diazepam 10 Mg/2 Ml Syringe) 2.5 mg IV NOW ONE Stop: 06/07/25 17:26 Last Admin: 06/07/25 17:44 Dose: 2.5 mg Documented By: TIFFANIE Droperidol (Droperidol 2.5 Mg/Ml Vial) 2.5 mg IV NOW ONE Stop: 06/07/25 14:27 Last Admin: 06/07/25 14:48 Dose: 2.5 mg Documented By: TIFFANIE Lactated Ringer's (Lactated Ringers) 1,000 mls @ 1,000 mls/hr IV BOLUS ONE Stop: 06/07/25 14:43 Last Infusion: 06/07/25 16:07 Dose: Infused Documented By: Admin: 06/07/25 14:10 Dose: 1,000 mls/hr Documented By: TIFFANIE Ketorolac Tromethamine (Ketorolac 30 Mg/Ml Vial) 15 mg IV NOW ONE Stop: 06/07/25 13:45 Last Admin: 06/07/25 14:03 Dose: 15 mg Documented By: TIFFANIE Ondansetron HCl (Ondansetron 4 Mg/2 Ml Inj) 4 mg IV NOW PRN PRN Reason: Nausea And Vomiting Last Admin: 06/07/25 14:03 Dose: 4 mg Documented By: TIFFANIE Ondansetron HCl (Ondansetron 4 Mg Odt) 4 mg PO NOW PRN PRN Reason: Nausea And Vomiting Ondansetron HCl (Ondansetron 4 Mg Odt Prepack) 1 bottle MISC DIRECTED ONE Stop: 06/07/25 20:27 Last Admin: 06/07/25 20:41 Dose: 1 bottle Documented By: TRAMAINE Tramadol HCl (Tramadol 50 Mg Prepack) 1 bottle MISC DIRECTED ONE Stop: 06/07/25 20:27 Last Admin: 06/07/25 20:41 Dose: 1 bottle Documented By: TRAMAINE Vital Signs Vital signs: Vital Signs - 8 hr 06/07/25 17:00 06/07/25 17:30 06/07/25 17:38 Pulse Rate 78 73 Respiratory Rate 21 14 Blood Pressure 155/65 H Pulse Oximetry 98 96 06/07/25 17:38 06/07/25 18:00 06/07/25 18:00 Pulse Rate 72 77 Respiratory Rate 13 13 Blood Pressure 173/75 H Pulse Oximetry 91 96 06/07/25 18:30 06/07/25 18:30 06/07/25 19:18 Pulse Rate 81 74 Respiratory Rate 24 14 Blood Pressure 185/79 H Pulse Oximetry 97 97 06/07/25 19:19 06/07/25 19:19 06/07/25 19:30 Pulse Rate 72 76 Respiratory Rate 9 L 11 L Blood Pressure 182/74 H Pulse Oximetry 95 96 06/07/25 19:30 06/07/25 20:00 06/07/25 20:00 Pulse Rate 64 Respiratory Rate 15 Blood Pressure 165/67 H 178/72 H Pulse Oximetry 94 06/07/25 20:30 06/07/25 20:31 06/07/25 20:31 Pulse Rate 66 65 Respiratory Rate 19 15 Blood Pressure 173/70 H Pulse Oximetry 96 96 <Bentley Wild MD - Last Filed: 06/08/25 01:00> Orders Ordered: Discontinued Medications Diazepam (Diazepam 10 Mg/2 Ml Syringe) 2.5 mg IV NOW ONE Stop: 06/07/25 17:26 Last Admin: 06/07/25 17:44 Dose: 2.5 mg Documented By: TIFFANIE Droperidol (Droperidol 2.5 Mg/Ml Vial) 2.5 mg IV NOW ONE Stop: 06/07/25 14:27 Last Admin: 06/07/25 14:48 Dose: 2.5 mg Documented By: TIFFANIE Lactated Ringer's (Lactated Ringers) 1,000 mls @ 1,000 mls/hr IV BOLUS ONE Stop: 06/07/25 14:43 Last Infusion: 06/07/25 16:07 Dose: Infused Documented By: Admin: 06/07/25 14:10 Dose: 1,000 mls/hr Documented By: TIFFANIE Ketorolac Tromethamine (Ketorolac 30 Mg/Ml Vial) 15 mg IV NOW ONE Stop: 06/07/25 13:45 Last Admin: 06/07/25 14:03 Dose: 15 mg Documented By: TIFFANIE Ondansetron HCl (Ondansetron 4 Mg/2 Ml Inj) 4 mg IV NOW PRN PRN Reason: Nausea And Vomiting Last Admin: 06/07/25 14:03 Dose: 4 mg Documented By: TIFFANIE Ondansetron HCl (Ondansetron 4 Mg Odt) 4 mg PO NOW PRN PRN Reason: Nausea And Vomiting Ondansetron HCl (Ondansetron 4 Mg Odt Prepack) 1 bottle MISC DIRECTED ONE Stop: 06/07/25 20:27 Last Admin: 06/07/25 20:41 Dose: 1 bottle Documented By: TRAMAINE Tramadol HCl (Tramadol 50 Mg Prepack) 1 bottle MISC DIRECTED ONE Stop: 06/07/25 20:27 Last Admin: 06/07/25 20:41 Dose: 1 bottle Documented By: TRAMAINE Vital Signs Vital signs: Vital Signs - 8 hr 06/07/25 17:00 06/07/25 17:30 06/07/25 17:38 Pulse Rate 78 73 Respiratory Rate 21 14 Blood Pressure 155/65 H Pulse Oximetry 98 96 06/07/25 17:38 06/07/25 18:00 06/07/25 18:00 Pulse Rate 72 77 Respiratory Rate 13 13 Blood Pressure 173/75 H Pulse Oximetry 91 96 06/07/25 18:30 06/07/25 18:30 06/07/25 19:18 Pulse Rate 81 74 Respiratory Rate 24 14 Blood Pressure 185/79 H Pulse Oximetry 97 97 06/07/25 19:19 06/07/25 19:19 06/07/25 19:30 Pulse Rate 72 76 Respiratory Rate 9 L 11 L Blood Pressure 182/74 H Pulse Oximetry 95 96 06/07/25 19:30 06/07/25 20:00 06/07/25 20:00 Pulse Rate 64 Respiratory Rate 15 Blood Pressure 165/67 H 178/72 H Pulse Oximetry 94 06/07/25 20:30 06/07/25 20:31 06/07/25 20:31 Pulse Rate 66 65 Respiratory Rate 19 15 Blood Pressure 173/70 H Pulse Oximetry 96 96 MDM - Abdominal Pain <Ari Trotter DO - Last Filed: 06/08/25 06:58> Lab Data 06/07/25 13:45 06/07/25 13:45 Labs: Lab Results 06/07/25 Range/Units 13:45 WBC 5.2 (4.5-11.0) X10^3/uL RBC 3.48 L (4.0-5.2) X10^6/uL Hgb 11.4 L (12.0-16.0) g/dL Hct 33.2 L (36-46) % MCV 95.4 (80-100) fL MCH 32.9 (26-34) PG MCHC 34.5 (30-36) % RDW 12.8 (11.6-14.8) % Plt Count 264 (150-400) X10^3/uL Neut % (Auto) 65.0 (50-75) % Lymph % (Auto) 25.8 (25-40) % [place] % (Auto) 6.6 (3-14) % Eos % (Auto) 1.4 L (2-4) % Baso % (Auto) 1.2 (0-2) % Neut # (Auto) 3400 (0493-4981) /uL Lymph # (Auto) 1300 (8662-4633) /uL [place]win # (Auto) 300 (0-900) /uL Eos # (Auto) 100 (0-450) /uL Baso # (Auto) 100 (0-100) /uL Sodium 138 (137-145) mmol/L Potassium 4.8 (3.4-5.1) mmol/L Chloride 106 (98-107) mmol/L Carbon Dioxide 19 L (22-32) mmol/L BUN 25 H (7-17) mg/dL Creatinine 1.06 H (0.52-1.04) mg/dL Estimated GFR 56 L (>60) mL/min BUN/Creatinine Ratio 23.6 H (6-22) Glucose 141 H (70-99) mg/dL Calcium 9.7 (8.4-10.2) mg/dL Total Bilirubin 1.1 (0.2-1.3) mg/dL AST 31 (14-36) IU/L ALT 22 (<35) IU/L Alkaline Phosphatase 153 H (38-126) U/L Total Protein 8.5 H (6.3-8.2) g/dL Albumin 4.7 (3.5-5.0) g/dL Globulin 3.8 (1.7-4.1) g/dL Albumin/Globulin Ratio 1.2 (1.0-2.8) Lipase 55 (23-300) U/L Point of care testing: Urine Dip Bedside Urine Glucose Negative Bedside Urine Bilirubin - Negative Bedside Urine Ketone - Negative Urine Specific [place] 1.005 Bedside Urine Occult Blood - Negative Bedside Urine pH 6.0 Bedside Urine Protein - Negative Bedside Urine Urobilinogen - Negative Bedside Urine Nitrite - Negative Bedside Urine Leukocytes - Negative Esterase Imaging Data CT scan - abdomen/pelvis: Radiologist's Impression: [address] [address] [address] Scan Report Signed Patient: Josselyn Casillas MR#: [id number] : 1955 Acct:[id number] Age/Sex: 70 / F Date of Service: 06/07/25 Loc: ED Accession Number: [id number] Procedure: CT abdomen pelvis w con Ordering Provider: Ari Trotter D.O. PROCEDURE: CT ABDOMEN PELVIS W CON INDICATIONS: abd pain n/v/d TECHNIQUE: After the administration of intravenous contrast, axial sections acquired from the lung bases to the pubic symphysis. Coronal and sagittal reformats were performed. For radiation dose reduction, the following was used: automated exposure control, adjustment of mA and/or kV according to patient size. COMPARISON: [facility], CT, CT ABDOMEN PELVIS W CON, 03/16/2025, 20:51. FINDINGS: Image quality: Diagnostic. Lower Chest: No significant findings. ABDOMEN: Liver: No solid mass. Gallbladder: Absent. There is a slip of fluid within the gallbladder fossa measuring 1.0 x 2.2 cm. Persistent inflammatory changes of the fat within this region. Biliary ducts: No intrahepatic or extrahepatic biliary dilation, accounting for a post cholecystectomy state. Pancreas: No ductal dilation. Spleen: Size is within normal limits. Adrenal Glands: No adrenal nodules. Kidneys and Ureters: No hydronephrosis. No solid mass. No complex renal cystic lesion which requires follow up. Stomach and Bowel: Normal colonic caliber, without significant wall thickening. Colonic diverticulosis without evidence of diverticulitis. Fecal debris within the small bowel. Normal appendix. Peritoneum: No abnormal intraperitoneal fluid. No free air. Ventral Wall: No significant ventral hernia. Abdominal Nodes: No retroperitoneal or mesenteric adenopathy by size criteria. Vessels: Aorta and inferior vena cava are normal in size. PELVIS: Pelvic Organs: Unremarkable. Bladder: No bladder wall thickening, accounting for underdistention. Pelvic Nodes: No enlarged lymph nodes. Miscellaneous: No inguinal hernias are seen. Bones: No aggressive osseous abnormality. IMPRESSION: Cholecystectomy. Mild inflammatory changes within the gallbladder fossa. Additional tiny slip of fluid in the gallbladder fossa measuring 1.0 x 2.2 cm. Findings probably represent a sequela of fat necrosis within the gallbladder fossa, but a small biliary leak is not entirely excluded (less likely given size). HIDA scan or MRCP with Eovist could be considered for confirmation. Colonic diverticulosis without evidence of diverticulitis. Fecal debris within the small-bowel, usually indicating small intestinal bacterial overgrowth versus slow transit. MDM Narrative Medical decision making narrative: All lab work, vital signs, nurse triage note, medication list, previous ER visits, and all imaging studies reviewed. CT abdomen and pelvis showed cholecystectomy. Mild inflammatory changes within the gallbladder fossa. Additional tiny slip of fluid gallbladder fossa measuring 1.0 x 2.2 cm. Findings probably represent a sequela of fat necrosis within the gallbladder fossa but a small biliary leak is not entirely excluded. MRCP and/or HIDA recommended. Colonic diverticulosis without evidence of diverticulitis. Fecal debris within the small bowel usually indicating small intestinal bacterial overgrowth versus slow transit. Hemoglobin 11.4 WBC 5.2 platelets 264 BUN 25 creatinine 1.06 glucose 141 T bili 1.1 AST 31 ALT 22 alk-phos 153. Patient given fluids, Toradol, Zofran, droperidol, and Valium. Patient signed out to Dr. Wild at shift change pending final disposition <Bentley Wild MD - Last Filed: 06/08/25 01:00> Lab Data Labs: Lab Results 06/07/25 Range/Units 13:45 WBC 5.2 (4.5-11.0) X10^3/uL RBC 3.48 L (4.0-5.2) X10^6/uL Hgb 11.4 L (12.0-16.0) g/dL Hct 33.2 L (36-46) % MCV 95.4 (80-100) fL MCH 32.9 (26-34) PG MCHC 34.5 (30-36) % RDW 12.8 (11.6-14.8) % Plt Count 264 (150-400) X10^3/uL Neut % (Auto) 65.0 (50-75) % Lymph % (Auto) 25.8 (25-40) % Irwin % (Auto) 6.6 (3-14) % Eos % (Auto) 1.4 L (2-4) % Baso % (Auto) 1.2 (0-2) % Neut # (Auto) 3400 (3782-3656) /uL Lymph # (Auto) 1300 (2589-7423) /uL [place]win # (Auto) 300 (0-900) /uL Eos # (Auto) 100 (0-450) /uL Baso # (Auto) 100 (0-100) /uL Sodium 138 (137-145) mmol/L Potassium 4.8 (3.4-5.1) mmol/L Chloride 106 (98-107) mmol/L Carbon Dioxide 19 L (22-32) mmol/L BUN 25 H (7-17) mg/dL Creatinine 1.06 H (0.52-1.04) mg/dL Estimated GFR 56 L (>60) mL/min BUN/Creatinine Ratio 23.6 H (6-22) Glucose 141 H (70-99) mg/dL Calcium 9.7 (8.4-10.2) mg/dL Total Bilirubin 1.1 (0.2-1.3) mg/dL AST 31 (14-36) IU/L ALT 22 (<35) IU/L Alkaline Phosphatase 153 H (38-126) U/L Total Protein 8.5 H (6.3-8.2) g/dL Albumin 4.7 (3.5-5.0) g/dL Globulin 3.8 (1.7-4.1) g/dL Albumin/Globulin Ratio 1.2 (1.0-2.8) Lipase 55 (23-300) U/L Point of care testing: Urine Dip Bedside Urine Glucose Negative Bedside Urine Bilirubin - Negative Bedside Urine Ketone - Negative Urine Specific [place] 1.005 Bedside Urine Occult Blood - Negative Bedside Urine pH 6.0 Bedside Urine Protein - Negative Bedside Urine Urobilinogen - Negative Bedside Urine Nitrite - Negative Bedside Urine Leukocytes - Negative Esterase Imaging Data MRCP: Radiologist's Impression: IMPRESSION: 1. Slightly is slightly degraded due to patient motion. 2. No discrete well-defined fluid collection is seen in the gallbladder fossa on the current study. No enhancing lesion is noted. CT finding of fluid density and surrounding stranding in this area likely represent postsurgical changes. No evidence of bile leak. No biliary ductal dilatation. 3. No discrete enhancing hepatic lesion. No abnormality is seen in pancreas, spleen, and bilateral adrenal glands. 4. No peritoneal free fluid. No abnormal bowel wall thickening. MDM Narrative Medical decision making narrative: All lab work, vital signs, nurse triage note, medication list, previous ER visits, and all imaging studies reviewed. CT abdomen and pelvis showed cholecystectomy. Mild inflammatory changes within the gallbladder fossa. Additional tiny slip of fluid gallbladder fossa measuring 1.0 x 2.2 cm. Findings probably represent a sequela of fat necrosis within the gallbladder fossa but a small biliary leak is not entirely excluded. MRCP and/or HIDA recommended. Colonic diverticulosis without evidence of diverticulitis. Fecal debris within the small bowel usually indicating small intestinal bacterial overgrowth versus slow transit. Hemoglobin 11.4 WBC 5.2 platelets 264 BUN 25 creatinine 1.06 glucose 141 T bili 1.1 AST 31 ALT 22 alk-phos 153. Patient given fluids, Toradol, Zofran, droperidol, and Valium. Patient signed out to Dr. Wild at shift change pending final disposition. 18;00 Patient care transferred to be the change of shift by Dr. Trotter with MRCP pending. This is a 70-year-old female patient with a history of CAD, hypertension, dyslipidemia, anxiety who underwent laparoscopic cholecystectomy about 6 weeks ago and was doing well until yesterday when she ate some plums and then developed abdominal pain, nausea and vomiting. To this point she has had lab work revealing mild anemia but otherwise unremarkable CBC and a mildly elevated alk-phos but otherwise unremarkable CMP. Her CT scan of the abdomen and pelvis revealed fluid and inflammatory changes in the gallbladder fossa and ?could not rule out bile leak. ? MRCP is obtained for further analysis. 20:10 MRCP is essentially unremarkable and reassuring. Postsurgical changes only. On my re-evaluation of the patient she continues to have abdominal discomfort and nausea but no vomiting. Symptoms and findings are consistent with viral gastrointestinal illness rather than postoperative complication. Plan will be hydration, rest and supportive care. Take-home pack of tramadol and ondansetron. Monitor symptoms and follow up with primary care or surgery. Return to the ER if worse. Discharge Plan Departure Patient Disposition: Home Clinical Impression: Nausea vomiting and diarrhea, Acute upper abdominal pain Instructions: DI for Food Poisoning, DI for Viral Gastroenteritis -- Adult Activity Restrictions/Additional Instructions: Assessment: Symptoms consistent with viral gastroenteritis versus food poisoning. Lab work and MRI reassuring. This does not appear to be postsurgical complications. Plan: Hydration, rest and supportive care with nausea and pain medicine at home. Follow up with your doctor or surgeon. Return to the ER if worse. Prescriptions: No Action aspirin 81 MG tablet,delayed release (DR/EC) 81 mg PO QDAY Qty: 30 0RF montelukast 10 mg tablet See Rx Instructions .ROUTE .COMPLEX Qty: 90 1RF Dose Instruction: TAKE ONE TABLET BY MOUTH DAILY Rx Instructions: TAKE ONE TABLET BY MOUTH DAILY omeprazole 20 mg capsule,delayed release(DR/EC) 20 mg PO DAILY Qty: 90 3RF hydrochlorothiazide 25 mg tablet 25 mg PO DAILY Qty: 90 3RF losartan 50 mg tablet 50 mg PO DAILY Qty: 90 3RF atorvastatin 40 mg tablet 40 mg PO ONCE PM Qty: 90 3RF levothyroxine 50 mcg tablet 50 mcg PO QAM Qty: 90 3RF duloxetine [Cymbalta] 30 mg capsule,delayed release(DR/EC) 60 mg PO DAILY MDD 2 Qty: 60 3RF flaxseed oil 1,000 mg capsule 1,000 mg PO BID Disabled Parking Permit See Rx Instructions .ROUTE .COMPLEX Qty: 1 0RF Rx Instructions: I find this patient to be medically disabled and qualified for Disabled Parking as indicated, and signed, on the accompanying Disabled Parking Application for Individuals ; isosorbide mononitrate 30 mg tablet extended release 24 hr 30 mg PO DAILY celecoxib [Celebrex] 200 mg capsule 200 mg PO DAILY Qty: 90 2RF gabapentin 300 mg capsule 300 mg PO .COMPLEX Qty: 90 2RF Rx Instructions: 1-2 PO Tid to begin at HS and titrate to pain relief metoprolol tartrate 50 mg tablet 50 mg PO BID ezetimibe 10 mg tablet 10 mg PO DAILY Referrals: Robert Felipe MD [Primary Care Provider, Family Practice] Stand Alone Forms: Patient Portal/API
--- NOTE | 2025-06-07 13:44 | EKG_ITS ---
[address] [address] Test Date: 2025-06-07 Pat Name: Josselyn Casillas Department: Room: Gender: Female Training And Documentation Specialist: JOANIE : 1955 Requested By: Order Number: [id number] Reading MD: Bairon Santos Measurements Intervals [place] Rate: 59 P: 40 HI: 164 QRS: 41 QRSD: 92 T: 16 QT: 418 QTc: 413 Interpretive Statements Sinus bradycardia Electronically Signed On 06-08-2025 8:37:03 PDT by Bairon Santos
--- NOTE | 2025-06-07 13:45 | DI.CT.S_ITS ---
PROCEDURE: CT ABDOMEN PELVIS W CON INDICATIONS: abd pain n/v/d TECHNIQUE: After the administration of intravenous contrast, axial sections acquired from the lung bases to the pubic symphysis. Coronal and sagittal reformats were performed. For radiation dose reduction, the following was used: automated exposure control, adjustment of mA and/or kV according to patient size. COMPARISON: [facility], CT, CT ABDOMEN PELVIS W CON, 03/16/2025, 20:51. FINDINGS: Image quality: Diagnostic. Lower Chest: No significant findings. ABDOMEN: Liver: No solid mass. Gallbladder: Absent. There is a slip of fluid within the gallbladder fossa measuring 1.0 x 2.2 cm. Persistent inflammatory changes of the fat within this region. Biliary ducts: No intrahepatic or extrahepatic biliary dilation, accounting for a post cholecystectomy state. Pancreas: No ductal dilation. Spleen: Size is within normal limits. Adrenal Glands: No adrenal nodules. Kidneys and Ureters: No hydronephrosis. No solid mass. No complex renal cystic lesion which requires follow up. Stomach and Bowel: Normal colonic caliber, without significant wall thickening. Colonic diverticulosis without evidence of diverticulitis. Fecal debris within the small bowel. Normal appendix. Peritoneum: No abnormal intraperitoneal fluid. No free air. Ventral Wall: No significant ventral hernia. Abdominal Nodes: No retroperitoneal or mesenteric adenopathy by size criteria. Vessels: Aorta and inferior vena cava are normal in size. PELVIS: Pelvic Organs: Unremarkable. Bladder: No bladder wall thickening, accounting for underdistention. Pelvic Nodes: No enlarged lymph nodes. Miscellaneous: No inguinal hernias are seen. Bones: No aggressive osseous abnormality. IMPRESSION: Cholecystectomy. Mild inflammatory changes within the gallbladder fossa. Additional tiny slip of fluid in the gallbladder fossa measuring 1.0 x 2.2 cm. Findings probably represent a sequela of fat necrosis within the gallbladder fossa, but a small biliary leak is not entirely excluded (less likely given size). HIDA scan or MRCP with Eovist could be considered for confirmation. Colonic diverticulosis without evidence of diverticulitis. Fecal debris within the small-bowel, usually indicating small intestinal bacterial overgrowth versus slow transit. Dictated by: Cipriano Lee M.D. on 06/07/2025 at 15:28 Approved by: Cipriano Lee M.D. on 06/07/2025 at 15:31
[2025-06-07 13:55] LABS: Add Manual Diff / Slide Review NO; Hematocrit 33.2 % (36-46); Hemoglobin 11.4 g/dL (12.0-16.0); Lymphocytes Absolute Auto 1300 /uL (1100-4500); Mean Corpuscular HGB Conc 34.5 % (30-36); Mean Corpuscular Hemoglobin 32.9 PG (26-34); Mean Corpuscular Volume 95.4 fL (80-100); Platelet Count 264 X10^3/uL (150-400)
[2025-06-07] MEDS: ONDANSETRON 4 MG/2 ML INJ IV (14:03)
[2025-06-07] MEDS: KETOROLAC 30 MG/ML VIAL 15 MG IV (14:03)
[2025-06-07] MEDS: LACTATED RINGERS 1,000 ML 1000 ML IV (14:10)
[2025-06-07 14:12] LABS: Alanine Aminotransferase 22 IU/L (<35); Albumin 4.7 g/dL (3.5-5.0); Albumin Globulin Ratio 1.2 (1.0-2.8); Alkaline Phosphatase 153 U/L (38-126); Blood Urea Nitrogen 25 mg/dL (7-17); Calcium 9.7 mg/dL (8.4-10.2); Carbon Dioxide 19 mmol/L (22-32); Chloride 106 mmol/L (98-107); Estimated Glomerular Filt Rate 56 mL/min (>60); Globulin 3.8 g/dL (1.7-4.1); Glucose 141 mg/dL (70-99); HEMOLYSIS 17 (0-50); Lipase 55 U/L (23-300); Potassium 4.8 mmol/L (3.4-5.1); Sodium 138 mmol/L (137-145); Total Protein 8.5 g/dL (6.3-8.2)
[2025-06-07] MEDS: droPERidol 2.5 MG/ML VIAL IV (14:48)
--- NOTE | 2025-06-07 16:04 | DI.MRI.S_ITS ---
PROCEDURE: MR AB PANCREATIC/MRCP PROTOCOL INDICATIONS: ct scan recommendation TECHNIQUE: Coronal HASTE through the abdomen, axial 2-D FLASH in- and [id number], and breath-hold T2 FSE with fat saturation through the biliary system and pancreas. Oblique coronal and axial thin-slice HASTE, radial thick-slab HASTE centered on the extrahepatic bile ducts. Intravenous secretin: Not requested. COMPARISON: [facility], CT, CT ABDOMEN PELVIS W CON, 03/16/2025, 20:51. [facility], CT, CT ABDOMEN PELVIS W CON, 06/07/2025, 15:03. FINDINGS: Image quality: Diagnostic. Significant patient motion is noted. Gallbladder: Gallbladder is surgically absent. CT finding of slip of fluid density within gallbladder fossa measures 1 x 2.2 cm in size is not appreciated on this study. No discrete fluid collection is noted within gallbladder fossa. No significant inflammatory changes are noted. No area of abnormal enhancement is seen. Biliary ducts: No biliary dilation. No intraluminal filling defects are noted in common bile duct. Pancreas: No ductal dilation. OTHER: Lung bases: Unremarkable. Liver: No solid mass. Spleen: Size is within normal limits. Adrenal Glands: No adrenal nodules. Kidneys and Ureters: No hydronephrosis. No solid mass. No complex renal cystic lesion which requires follow up. Stomach and Bowel: Normal colonic caliber, without significant wall thickening. No peritoneal free fluid. Peritoneum: No abnormal intraperitoneal fluid. No free air. Ventral Wall: No hernia. Abdominal Nodes: No retroperitoneal or mesenteric adenopathy by size criteria. Vessels: Aorta and inferior vena cava are normal in size. Bones: No aggressive osseous abnormality. IMPRESSION: 1. Slightly is slightly degraded due to patient motion. 2. No discrete well-defined fluid collection is seen in the gallbladder fossa on the current study. No enhancing lesion is noted. CT finding of fluid density and surrounding stranding in this area likely represent postsurgical changes. No evidence of bile leak. No biliary ductal dilatation. 3. No discrete enhancing hepatic lesion. No abnormality is seen in pancreas, spleen, and bilateral adrenal glands. 4. No peritoneal free fluid. No abnormal bowel wall thickening. Dictated by: Hair Bray M.D. on 06/07/2025 at 19:45 Approved by: Hair Bray M.D. on 06/07/2025 at 19:51
[2025-06-07] MEDS: TRAMADOL 50 MG PREPACK 1 BOTTLE MISC (20:41)
[2025-06-07] MEDS: ONDANSETRON 4 MG ODT PREPACK 1 BOTTLE MISC (20:41)
== END 2025-06-07 20:55 | disposition home or self-care (01) ==
PROVIDERS: Family Medicine; Emergency Provider Emergency Medicine; PCP Family Medicine
DX: R11.2 Nausea with vomiting, unspecified (principal); R19.7 Diarrhea, unspecified; R10.10 Upper abdominal pain, unspecified; I10 Essential (primary) hypertension; I25.10 Atherosclerotic heart disease of native coronary artery without angina pectoris; Z90.49 Acquired absence of other specified parts of digestive tract; Z95.5 Presence of coronary angioplasty implant and graft
CPT/HCPCS: 36415; 74177; 74183; 80053; 81003; 83690; 85025; 93005; 96361; 96374; 96375; 99284; A9579; J1790; J1885; J2405; J3360; Q9967

== ENCOUNTER 2025-07-24 14:04 | Outpatient (CLI) | payer MEDICARE, OTHER, SELFPAY ==
[2024-01-10 08:42] VITALS: BMI 33.3
[2025-07-24] VITALS (8 sets, daily range): BP systolic 121–166; BP diastolic 63–77; PULSE 58–71; RESP 12–18; TEMP 36.2; O2SAT 93–100
[2025-07-24] MEDS: MIDAZOLAM 2 MG/2 ML VIAL 1 MG IV (15:26)
[2025-07-24] MEDS: BETAMETHASONE 30 MG/5 ML MDV 12 MG INJ (15:28)
--- NOTE | 2025-07-24 15:39 | P.PCN_ITS ---
Date/Time/Diagnoses Date of procedure: 08/08/25 Time of procedure: 15:39 Pre-procedure diagnosis: 1. FORAMINAL STENOSIS WITH LE SYMPTOMS Post-procedure diagnosis: same Procedure Notes Procedure: 1. FLUOROSCOPICALLY GUIDED CONTRAST CONTROLLED TRANSFORAMINAL EPIDURAL STEROID INJECTION - RIGHT L4/5 TFESI Indications: Josselyn is referred by Dr. Felipe for treatment of Foraminal Stenosis with Right LE Symptoms Physician: Emigdio Castañeda Total Fluoroscopy time (seconds): 8 Total sedation minutes: 10 Complications: none Procedure in detail & Post-procedure care: FINDINGS Foraminal Nerve Root Compression secondary to disc disease and facet hypertrophy DESCRIPTION OF PROCEDURE Following review of allergy and review of potential side effects and complications, including, but not necessarily limited to, infection, allergic reaction, local tissue breakdown, stroke, temporary or permanent nerve injury, paralysis, and possible , the patient indicated that the patient understood and agreed to proceed. An informed consent document was signed by the patient, witnessed by a nurse, and placed in the patient's chart. Additionally, other treatment options including medications, modalities, and physical therapy were reviewed with the patient. After review of previous anaesthesic history and IV conscious sedation the patient was deemed safe to proceed with today?s procedure with IV conscious sedation as ASA class II designation. Safety time-out was performed to confirm patient ID, procedure to be performed and site of procedure. IV sedation was accomplished with a combination of 1mg of Versed was administered by the RN after DO order, titrated to patient comfort during the course of the procedure while the patient remained responsive to all verbal commands In the prone position following sterile prep and drape of the lumbar region, the right L4/5 posterior neuroforamen was identified fluoroscopically. The skin was anesthetized via a 25-gauge 1.5-inch needle with 1% lidocaine solution. At this point, a 25-gauge 3.5-inch spinal needle was atraumatically introduced and advanced under fluoroscopic guidance through the posterior right L4/5 neuroforamen to approximately the anterior aspect of the canal. Depth was confirmed on lateral view. Following negative aspiration, injection of approximately 1.5cc of Isovue 200 under live fluoroscopy in the AP view conf irmed excellent flow along the nerve root, into the epidural space without vascular or intrathecal uptake observed Radiological data, including multiple fluoroscopic views of the lumbosacral spine, reveal a spinal needle at the right L4/5 posterior neuroforamen. Subsequent views show flow of contrast material flowing superiorly and inferiorly along the nerve root confirming epidural flow. Subsequently, a test dose of 1.5 cc of 0.25%marcaine solution was administered and patient was observed for two minutes for signs or symptoms of complications, including abdominal pain, shortness of breath, bilateral upper or lower extremity weakness, nausea and vomiting, prior to steroid injection. At this point, a total of 3cc or 10mg of dexamethasone and 12mg of betamethasone was injected without incident. The procedure tolerated the procedure well without signs or symptoms of complications prior to transfer to the recovery area continued monitoring without incident. The patient was then transferred to the recovery area where they were observed for an appropriate time after the injection. The patient reported a VAS score of 7 prior to the procedure and a post- procedure VAS of 0. POST OP INSTRUCTIONS The patient was provided a Pain Log to continue to record their response to the target-specific procedure prior to follow-up visit with their referring physician. Additionally, specific post-injection care instructions and a contact number to our office were provided if concerns arise regarding possible complications associated with the procedure are suspected.
== END 2025-07-24 17:08 | disposition home or self-care (01) ==
PROVIDERS: PCP Family Medicine; Referring Provider Physical Medicine & Rehabilitation; Visit Provider Physical Medicine & Rehabilitation
DX: M48.061 Spinal stenosis, lumbar region without neurogenic claudication (principal); M51.16 Intervertebral disc disorders with radiculopathy, lumbar region; M47.26 Other spondylosis with radiculopathy, lumbar region
CPT/HCPCS: 64483; 99152; J0702; J1100; J2250